=== PATIENT | female | born 1990 | race Caucasian/White ===

== ENCOUNTER 2017-03-03 01:18 | Emergency (ER) | payer MEDICAID ==
[~2017-03-03] VITALS: Ht 165.1 cm; Wt 54.4 kg
[~2017-03-03 01:18] MED LIST: CALC667T7 PO; CLON-528 TD; HYDR-1100 PO; LISI40TA4 PO; METO100T98 PO; NIFE30TE8 PO; SEN30 PO; SEVE800T PO; [UNRECOGNIZED DRUG - OTHER] PO
[2017-03-03 01:28] VITALS: BP 147/87
--- NOTE | 2017-03-03 03:41 | NUR ---
PT TAKEN TO BED 7
--- NOTE | 2017-03-03 03:45 | NUR ---
CAME IN WITH C/O SEVERE PAIN N HER LEFT FOREARM, S/P SURGERY YESTERDAY , FISTULA FOR DISLYSIS.
[2017-03-03] MEDS ORDERED: ONDANSETRON 4 MG/2 ML VIAL IVP ONE (04:00)
--- NOTE | 2017-03-03 04:02 | NUR ---
Dr. Sheehan evaluating patient at bedside.
[2017-03-03] MEDS ORDERED: HYDROmorphone PFS 2 MG/ML SYR IVP ONE (04:05)
[2017-03-03 04:09] LABS: BASOPHILS # (AUTO) 0.2 K/uL (0.00-0.22); EOSINOPHILS # (AUTO) 0.3 K/uL (0-0.4); EOSINOPHILS % (AUTO) 3.1 % (0.0-4.0); HEMATOCRIT 29.5 % (36-48); HEMOGLOBIN 9.4 g/dL (12.0-16.0); LYMPHOCYTES # (AUTO) 0.8 K/uL (2.5-16.5); LYMPHOCYTES % (AUTO) 10.1 % (20.5-51.1); MEAN CORPUSCULAR HEMOGLOBIN 31 pg (27-31); MEAN CORPUSCULAR HGB CONC 32 g/dL (33-37); MEAN CORPUSCULAR VOLUME 97 fL (80-94); MONOCYTES # (AUTO) 0.7 K/uL (0.8-1.0); MONOCYTES % (AUTO) 8.1 % (1.7-9.3); NEUTROPHILS # (AUTO) 6.3 K/uL (1.8-7.7); NEUTROPHILS % (AUTO) 75.7 % (42.2-75.2); PLATELET COUNT (AUTO) 189 K/uL (140-450); RED BLOOD CELL COUNT(AUTO) 3.05 MIL/uL (4.20-5.40); RED CELL DISTRIBUTION WIDTH 15.3 % (11.6-13.7); WHITE BLOOD COUNT (AUTO) 8.3 K/uL (4.8-10.8)
--- NOTE | 2017-03-03 04:18 | NUR ---
MEDICATED PER ERMDS ORDER, PATIENT TOLERATED WELL
[2017-03-03 04:21] LABS: PROTHROMBIN TIME 10.1 secs (10.8-13.4)
[2017-03-03] MEDS ORDERED: ONDANSETRON 4 MG/2 ML VIAL ONE (04:23)
[2017-03-03 04:38] LABS: ALBUMIN 3.3 g/dL (3.4-5.0); ANION GAP 18.8 (8-16); CARBON DIOXIDE 28.2 mmol/L (21-32); TOTAL BILIRUBIN 0.6 mg/dL (0.0-1.0)
[2017-03-03 05:29] VITALS: BP 144/77
--- NOTE | 2017-03-03 05:34 | NUR ---
Patient discharged with v/s stable. Written and verbal after care instructions given and explained. Patient alert, oriented and verbalized understanding of instructions. Ambulatory with steady gait. All questions addressed prior to discharge. ID band removed. Patient advised to follow up with PMD. Rx of NORCO 5MG-325MG 1-2 Q4HRS/PRN given. Patient educated on indication of medication including possible reaction and side effects. Opportunity to ask questions provided and answered.
== END 2017-03-03 05:34 | disposition home or self-care (01) ==
LOC: MED 01:18
DX: G89.18 Other acute postprocedural pain (principal); I12.0 Hypertensive chronic kidney disease with stage 5 chronic kidney disease or end stage renal disease; N18.6 End stage renal disease; Z99.2 Dependence on renal dialysis; Z88.0 Allergy status to penicillin; Z88.5 Allergy status to narcotic agent
CPT/HCPCS: 36415; 80053; 85025; 85610; 96374; 96375; 99285; J1170; J2405

== ENCOUNTER 2017-03-23 09:12 | Emergency (ER) | payer MEDICAID ==
[~2017-03-23] VITALS: Ht 165.1 cm; Wt 59.4 kg
[2017-03-23 09:15] VITALS: BP 172/101
--- NOTE | 2017-03-23 09:24 | NUR ---
Patient to bed 12.
--- NOTE | 2017-03-23 09:28 | NUR ---
Dr. Carlisle evaluating patient at bedside.
--- NOTE | 2017-03-23 09:33 | NUR ---
PATIENT PRESENTS PRESENT TO ER C/O WEAKNESSAND ABDOMINAL PAIN x YESTERDAY.PT MISSED HER DIALYSIS YESTERDAY AND SINCE THEN SHE BEGINS TO FEEL WEAK;HAS A FISTULA ON LT ARM;HX OF RENAL FAILURE, HTN;PT'S BP IS ELEVATED OER PT SHE TOOK HER BP MEDICINE THIS MORNING;DR IRELAND AWARE OF PT'S BP;MEDS: HYDRALIZINE, METOPROLOL, CLONIDINE.DENIES N/V/D; SKIN IS PINK/WARM/DRY; AAOX4 WITH EVEN AND STEADY GAIT; LUNGS CLEAR BL; HR EVEN AND REGULAR; PT DENIES ANY FEVER, CP, SOB, OR COUGH AT THIS TIME; PATIENT STATES PAIN OF 5/10 AT THIS TIME; PATIENT POSITIONED FOR COMFORT; HOB ELEVATED; BEDRAILS UP X2; BED DOWN. DR IRELAND AT BEDSIDE.
[2017-03-23] MEDS ORDERED: ENALAPRILAT 2.5 MG/2 ML VIAL IVP ONE (09:35)
[2017-03-23 09:59] LABS: BASOPHILS # (AUTO) 0.1 K/uL (0.00-0.22); EOSINOPHILS # (AUTO) 0.2 K/uL (0-0.4); EOSINOPHILS % (AUTO) 3.6 % (0.0-4.0); HEMOGLOBIN 8.9 g/dL (12.0-16.0); LYMPHOCYTES # (AUTO) 1.2 K/uL (2.5-16.5); LYMPHOCYTES % (AUTO) 20.9 % (20.5-51.1); MEAN CORPUSCULAR HEMOGLOBIN 32 pg (27-31); MEAN CORPUSCULAR HGB CONC 33 g/dL (33-37); MEAN CORPUSCULAR VOLUME 96 fL (80-94); MONOCYTES # (AUTO) 0.4 K/uL (0.8-1.0); MONOCYTES % (AUTO) 6.3 % (1.7-9.3); NEUTROPHILS # (AUTO) 3.9 K/uL (1.8-7.7); NEUTROPHILS % (AUTO) 68.2 % (42.2-75.2); PLATELET COUNT (AUTO) 223 K/uL (140-450); RED BLOOD CELL COUNT(AUTO) 2.81 MIL/uL (4.20-5.40); RED CELL DISTRIBUTION WIDTH 14.7 % (11.6-13.7); WHITE BLOOD COUNT (AUTO) 5.8 K/uL (4.8-10.8)
--- NOTE | 2017-03-23 10:04 | NUR ---
PT UNABLE TO GIVE URINE AT THIS TIME;
[2017-03-23 10:22] LABS: ALBUMIN 3.1 g/dL (3.4-5.0); ANION GAP 18.8 (8-16); CARBON DIOXIDE 29.2 mmol/L (21-32); TOTAL BILIRUBIN 0.4 mg/dL (0.0-1.0)
[2017-03-23 10:24] LABS: CREATININE 9.9 mg/dL (0.6-1.3)
--- NOTE | 2017-03-23 10:35 | NUR ---
DR IRELAND NOTIFIED ABOUT PT'S BP OF 188/114;TON FONTANEZ SAID IT'S OKAY BECUASE SHE HAS A RENAL FAILURE.
[2017-03-23 11:18] VITALS: BP 188/100
--- NOTE | 2017-03-23 11:18 | NUR ---
BEFORE D/C SEEN AND ADVISE BY DR IRELAND, STILL WANTS TO LEAVE AGAINST MEDICAL ADVISE WITH ELEVATED BP, NO C/O HEADACHE, DIZZINESS OR NAUSEA, ADVISE TO FOLLOWUP WITH PMD, AAO PT LEAVE ACCOMPANIED BY MOTHER
== END 2017-03-23 11:18 | disposition left against medical advice (07) ==
LOC: MED 09:12
DX: I12.0 Hypertensive chronic kidney disease with stage 5 chronic kidney disease or end stage renal disease (principal); N18.6 End stage renal disease; R79.89 Other specified abnormal findings of blood chemistry; Z99.2 Dependence on renal dialysis; Z88.0 Allergy status to penicillin; Z88.5 Allergy status to narcotic agent; Z79.899 Other long term (current) drug therapy
CPT/HCPCS: 36415; 71010; 80053; 82948; 84484; 85025; 93005; 96374; 99285; J3490; Q0092

== ENCOUNTER 2017-04-09 03:35 | Emergency (ER) | payer MEDICAID ==
[~2017-04-09] VITALS: Ht 165.1 cm; Wt 61.0 kg
[2017-04-09 03:43] VITALS: BP 147/77
--- NOTE | 2017-04-09 03:49 | NUR ---
TO LOBBY AMB, V/S STABLE, A/W FOR BED, DENZEL NOTED
--- NOTE | 2017-04-09 05:35 | NUR ---
PATIENT CALLED TO BED , NO RESPONE
--- NOTE | 2017-04-09 05:40 | NUR ---
CALLED FOR THE SECOND TIME , NO ANSWER
--- NOTE | 2017-04-09 05:45 | NUR ---
CALLED FOR THE THIRD TIME NO RESPONSE, PATIENT LEFT WITHOUT BEING SEEN BY DR. PARSONS. NO FURTHER CARE PROVIDED FOR PATIENT.
== END 2017-04-09 05:45 | disposition left against medical advice (07) ==
LOC: MED 03:35
DX: R10.9 Unspecified abdominal pain (principal); Z53.21 Procedure and treatment not carried out due to patient leaving prior to being seen by health care provider

== ENCOUNTER 2017-06-10 01:43 | Inpatient (IN) | payer MEDICAID ==
[~2017-06-10] VITALS: Ht 157.5 cm; Wt 51.7 kg
[2017-06-10] VITALS (8 sets, daily range): BP systolic 99–202; BP diastolic 55–103
--- NOTE | 2017-06-10 01:43 | NUR ---
BIBA TO ER BED 2
--- NOTE | 2017-06-10 02:05 | NUR ---
BIBA FOR C/O RIGHT SHOULDER PAIN, COUGH, SOB, FEVER HEADACHE MED HX: KIDNEY DISEASE, DIALYSIS ON // PT DENIES N/V/D; AAOX4 WITH EVEN AND STEADY GAIT; HR EVEN AND REGULAR; PATIENT STATES PAIN OF 10 AT THIS TIME; PATIENT POSITIONED FOR COMFORT; HOB ELEVATED; BEDRAILS UP X2; BED DOWN. TON FONTANEZ MADE AWARE OF PT STATUS. Addendum: 06/10/17 at 0420 by [facility]IAL[facility] ON //SUN
[2017-06-10 02:40] LABS: HEMOGLOBIN 7.9 g/dL (12.0-16.0); MEAN CORPUSCULAR HEMOGLOBIN 32 pg (27-31); MEAN CORPUSCULAR HGB CONC 33 g/dL (33-37); MEAN CORPUSCULAR VOLUME 98 fL (80-94); PLATELET COUNT (AUTO) 218 K/uL (140-450); RED BLOOD CELL COUNT(AUTO) 2.44 MIL/uL (4.20-5.40); RED CELL DISTRIBUTION WIDTH 15.7 % (11.6-13.7); WHITE BLOOD COUNT (AUTO) 9.9 K/uL (4.8-10.8)
[2017-06-10] MEDS ORDERED: fentaNYL 0.05 MG/ML VIAL IVP ONE (02:45)
[2017-06-10 02:46] LABS: CARBON DIOXIDE 28.1 mmol/L (21-32); POTASSIUM 5.1 mmol/L (3.5-5.1)
[2017-06-10 02:50] LABS: PROTHROMBIN TIME 11.1 secs (10.8-13.4)
[2017-06-10 02:51] LABS: CREATININE 4.7 mg/dL (0.6-1.3)
[2017-06-10 03:00] LABS: EOSINOPHILS % (MANUAL) 3 % (0-4); LYMPHOCYTES % (MANUAL) 14 % (20-46); MONOCYTES % (MANUAL) 9 % (5-12)
--- NOTE | 2017-06-10 03:00 | NUR ---
PAIN MEDS GIVEN TO PT. DR GUTIÉRREZ TALKED WITH PT REGARDING EXAM. PT BE ADMITTED BASED ON RESULTS.
[2017-06-10 03:08] LABS: TOTAL BILIRUBIN 0.4 mg/dL (0.0-1.0)
[2017-06-10 03:09] LABS: ALBUMIN 2.4 g/dL (3.4-5.0)
--- NOTE | 2017-06-10 03:15 | NUR ---
PT UNABLE TO PRODUCE URINE, NO UA COLLECTED.
[2017-06-10] MEDS ORDERED: ENOXAPARIN 60 MG/0.6 ML SYR SUBQ ONE (03:25)
[2017-06-10] MEDS ORDERED: HYDROmorphone PFS 2 MG/ML SYR IVP ONE (03:45)
[2017-06-10] MEDS ORDERED: NACL 0.9% 1,000 ML IV SCH (04:03)
[2017-06-10] MEDS ORDERED: NITROGLYCERIN 0.4 MG TAB SL PRN (04:05)
[2017-06-10] MEDS: ACETAMINOPHEN 325 MG TAB PO PRN ×4 (04:25→23:55)
--- NOTE | 2017-06-10 04:35 | NUR ---
Patient will be admitted to care of DR NICHOLS. Admited to TELE. Will go to room 112B. Belongings list completed. Report to DOMINIC PAUL.
--- NOTE | 2017-06-10 04:40 | NUR ---
Admitted from ER, with chief complaint of R BACK SCAPULA PAIN. PT'S MOTHER AT BEDSIDE. DR ROSS AT BEDSIDE TO SEE PT. 26 y/o, Female, Cooperative, AOX4, AMBULATORY, ABLE TO VERBALIZE NEEDS. RN NEW GRAD PLACED. PT DENIES CHEST PAIN AT THIS TIME, DENIES SOB. REPORTS RELIEF AND REDUCED R BACK PAIN AFTER DILAUDID IVP FROM ER. PT HAS L CHEST MASS AND L FOOT MASS, PT DENIES TENDERNESS. L AV SHUNT NOTED, WILL RESTRICT LIMB. IV ACCESS ASYMPTOMATIC, PATENT AND INTACT. oriented to call light, bed, phone,television, bathroom, smoking policy, visiting hours, procedures, ID bracelet on. Belongings list checked. DISCUSSED AND REVIEWED PLAN OF CARE WITH PT, PT VERBALIZED UNDERSTANDING, TOLERATED MEDS WELL. ALL NEEDS MET. SAFETY MEASURES ENSURED. CALL LIGHT WITHIN REACH.
[2017-06-10] MEDS ORDERED: HYDROcodone/APAP 10/325 MG 1 TAB TAB PO PRN (04:55)
[2017-06-10] MEDS ORDERED: cloNIDine 0.1 MG TAB PO ONE (05:00)
[2017-06-10 05:14] LABS: CHOL/HDL RATIO 2.2 (1-4.5); FREE T4 (FREE THYROXINE) 0.7 ng/dL (0.76-1.46); PHOSPHORUS 5.5 mg/dL (2.5-4.9); THYROID STIMULATING HORMONE 2.1 uIU/mL (0.34-3.74)
[2017-06-10] MEDS ORDERED: METOPROLOL 50 MG TAB PO SCH (06:00)
[2017-06-10] MEDS: hydrALAZINE 25 MG TAB PO SCH ×3 (06:06→20:06)
[2017-06-10] MEDS: HYDROmorphone PFS 2 MG/ML SYR IVP PRN ×5 (06:06→20:07)
[2017-06-10] MEDS ORDERED: cloNIDine 0.1 MG TAB PO SCH ×2 (07:00→13:00)
--- NOTE | 2017-06-10 07:05 | NUR ---
RECEIVED PATIENT REPORT AT BEDSIDE. PATIENT AWAKE, ALERT AND ORIENTED. PATIENT ON ROOM AIR. NO S/S OF DISTRESS NOTED. PATIENT REPORTS OF STABBING PAIN TO HER RIGHT BACK. WILL MEDICATE. AV FISTULA NOTED TO THE LEFT FOREARM. BRUIT AND THRILL NOTED. IV LINE NOTED TO THE RIGHT AC SALINE LOCKED. PATIENT ON TELE MONITORING. BED LOWERED WITH CALL LIGHT WITHIN REACH. WILL CONTINUE TO MONITOR
--- NOTE | 2017-06-10 07:15 | NUR ---
ENDORSED PLAN OF CARE TO AM NURSE. CONDITION STABLE.
[2017-06-10] MEDS: ONDANSETRON 4 MG/2 ML VIAL IVP PRN ×2 (08:20→16:29)
[2017-06-10] MEDS: LISINOPRIL 20 MG TAB PO SCH (08:23)
[2017-06-10] MEDS: NIFEdipine 30 MG TABER PO SCH (08:23)
[2017-06-10] MEDS: DOCUSATE SODIUM 100 MG GELCAP PO SCH ×2 (08:23→20:06)
[2017-06-10] MEDS: SEVELAMER CARBONATE 800 MG TAB PO SCH ×4 (08:24→17:54)
[2017-06-10] MEDS: ASPIRIN 81 MG TAB.CHEW PO SCH (08:24)
--- NOTE | 2017-06-10 08:29 | NUR ---
SCHEDULED HEPARIN NOT ADMINISTERED. PATIENT RECEIVED LOVENOX IN ER
[2017-06-10] MEDS ORDERED: CALCIUM ACETATE 667 MG PO SCH (09:00)
--- NOTE | 2017-06-10 10:15 | NUR ---
SPOKE WITH DR LAL. PER , PATIENT WILL HAVE HD TODAY AFTER CT ANGIO
[2017-06-10 11:17] LABS: HEMATOCRIT 26.5 % (36-48); HEMOGLOBIN 8.7 g/dL (12.0-16.0); MEAN CORPUSCULAR HEMOGLOBIN 31 pg (27-31); MEAN CORPUSCULAR HGB CONC 33 g/dL (33-37); MEAN CORPUSCULAR VOLUME 96 fL (80-94); PLATELET COUNT (AUTO) 237 K/uL (140-450); RED BLOOD CELL COUNT(AUTO) 2.76 MIL/uL (4.20-5.40); RED CELL DISTRIBUTION WIDTH 15.3 % (11.6-13.7)
--- NOTE | 2017-06-10 11:52 | NUR ---
PATIENT'S TEMP 102 TAKEN ORALLY. PRN TYLENOL ADMINISTERED, COOLING MEASURES IN PLACE.
[2017-06-10 11:53] LABS: ANION GAP 18.9 (8-16); CARBON DIOXIDE 28.6 mmol/L (21-32)
--- NOTE | 2017-06-10 12:00 | NUR ---
NOTIFIED DR PARRA ABOUT PT'S BP OF 202/96. PRN NITROSTAT ADMINISTERED. WILL CONTINUE TO MONITOR
[2017-06-10 12:07] LABS: CREATININE 5.7 mg/dL (0.6-1.3); POTASSIUM 6.5 mmol/L (3.5-5.1)
[2017-06-10] MEDS: CINACALCET 30 MG TAB PO SCH (13:11)
[2017-06-10] MEDS: cloNIDine 0.1 MG TAB PO SCH ×2 (13:12→20:06)
[2017-06-10] MEDS: CYCLOBENZAPRINE 10 MG TAB PO SCH ×2 (13:13→17:54)
[2017-06-10 14:04] LABS: BASOPHILS % (MANUAL) 0 % (0-2); EOSINOPHILS % (MANUAL) 0 % (0-4); LYMPHOCYTES % (MANUAL) 5 % (20-46); MONOCYTES % (MANUAL) 12 % (5-12)
--- NOTE | 2017-06-10 14:10 | NUR ---
PATIENT BEING SEEN BY DR LAL
[2017-06-10] MEDS: CALCIUM ACETATE 667 MG TAB PO SCH ×2 (14:14→17:54)
--- NOTE | 2017-06-10 14:30 | NUR ---
LEFT A MESSAGE TO FATIMAH BARTH 'S VOICE MAIL FOR STAT DIALYSIS
--- NOTE | 2017-06-10 14:55 | NUR ---
SPOKE TO FATIMAH BARTH AND INFORMED HER ABOUT THE HEMODIALYSIS ORDERED FOR THE PATIENT TODAY
--- NOTE | 2017-06-10 15:00 | NUR ---
ECHO IN PROGRESS. BP REASSESSED 218/93. PATIENT DROWSY BUT AROUSABLE. MADE DR PATEL AWARE
--- NOTE | 2017-06-10 16:10 | NUR ---
HEMODIALYSIS INITIATED
--- NOTE | 2017-06-10 17:55 | NUR ---
TEMP 102.4 PRN TYLENOL ADMINISTERED
--- NOTE | 2017-06-10 18:17 | NUR ---
DR PARRA PRESENT IN THE ROOM. HEMODIALYSIS IN PROGRESS
[2017-06-10] MEDS ORDERED: KETOROLAC 30 MG/ML VIAL IVP ONE (18:55)
--- NOTE | 2017-06-10 19:00 | NUR ---
TEMP RECHECKED ORALLY 103. PATIENT LETHARGIC BUT RESPONSIVE. HEMODIALYSIS STILL IN PROGRESS. MADE DR PATEL AWARE. DR IRWIN PUT ORDERS
--- NOTE | 2017-06-10 19:10 | NUR ---
PATIENT ENDORSED TO SENIOR CLINICAL PROJECT MANAGER NURSE. REPORT GIVEN AT BEDSIDE. HEMODIALYSIS IN PROGRESS
--- NOTE | 2017-06-10 19:20 | NUR ---
RECEIVED REPORT FROM AM NURSE. PT'S FAMILY AT BEDSIDE. PET COUNSELOR AT BEDSIDE ABOUT TO FINISH WITH HD. PT RESTING IN BED, AOX4, AMBULATORY, ABLE TO VERBALIZE NEEDS. LICENSED CLUB MANAGER IN PLACE. PT DENIES CHEST PAIN, DENIES SOB. PT HAS L CHEST MASS AND L FOOT MASS, PT DENIES TENDERNESS. L AV SHUNT NOTED. IV ACCESS ASYMPTOMATIC, PATENT AND INTACT. DISCUSSED AND REVIEWED PLAN OF CARE WITH PT, PT VERBALIZED UNDERSTANDING. ALL NEEDS MET. COOLING MEASURES IN PLACE. SAFETY MEASURES ENSURED. CALL LIGHT WITHIN REACH.
[2017-06-10] MEDS: ATORVASTATIN 20 MG TAB PO SCH (20:06)
[2017-06-10] MEDS: METOPROLOL 50 MG TAB PO SCH (20:06)
--- NOTE | 2017-06-10 20:10 | NUR ---
PT HAS FINISHED DIALYSIS, 3L OUT. PT C/O R BACK PAIN, SEE PAIN ASSESSMENT, ADMINISTERED DILAUDID 1MG IVP PRN WITH EDUCATION. ADMINISTERED REMAINING DUE MEDS WITH EDUCATION. PT VERBALIZED UNDERSTANDING, TOLERATED MED WELL. TEMP 102.9 AT THIS TIME DESPITE TYLENOL PO PRN AND TORADOL IVP ONE TIME GIVEN BY AM NURSE. PT IS NOT DUE FOR TYLENOL PO PRN IN 2 HOURS, ICE PACKS AND COOLING MEASURES ENSURED, WILL MONITOR AT THIS TIME.
--- NOTE | 2017-06-10 21:45 | NUR ---
SPOKE WITH DR ROSS, MADE AWARE OF TEMP 100.6 AT THIS TIME FROM PREVIOUS 102.9 AFTER ICE PACKS AND PREVIOUS TYLENOL PO PRN AND TORADOL IVP ONETIME BY AM NURSE. DISCUSSED THAT PT IS SLEEPING AT THIS TIME, BP 99/55, HR 96 AFTER SCHEDULED MEDS. DISCUSSED IF TYLENOL PO PRN CAN BE CHANGED TO Q4H INSTEAD OF Q6H TO GIVE AT THIS TIME. NO NEW ORDERS AT THIS TIME, MD STATED TO MONITOR AT THIS TIME.
[2017-06-11] VITALS (7 sets, daily range): BP systolic 99–152; BP diastolic 49–82
--- NOTE | 2017-06-11 | NUR ---
PT SLEEPING COMFORTABLY, AROUSABLE TO NAME. O2 NC SEEN AT BEDSIDE, SPO2 89-93% ON ROOM AIR. PT REMINDED TO KEEP O2 2L NC ON, PT STATED SHE ACCIDENTALLY TOOK IT OFF WHEN TURNING IN BED WHILE SLEEPING. PT PLACED BACK ON O2 NC, SPO2 97%, RR 18 EVEN AND UNLABORED. TEMP 100 AT THIS TIME, ADMINISTERED TYLENOL PO PRN PER DR RSOS, COOLING MEASURES MAINTAINED. ALL NEEDS MET. SAFETY MEASURES ENSURED. CALL LIGHT WITHIN REACH.
[2017-06-11] MEDS: HYDROmorphone PFS 2 MG/ML SYR IVP PRN ×6 (04:15→22:41)
[2017-06-11] MEDS: cloNIDine 0.1 MG TAB PO SCH ×3 (04:16→21:00)
--- NOTE | 2017-06-11 04:20 | NUR ---
PT SLEEPING COMFORTABLY, AROUSABLE TO NAME. SPO2 89-93% ON ROOM AIR, PT ACCIDENTALLY REMOVED O2 NC WHILE SLEEPING. PT PLACED BACK ON O2 NC, SPO2 97%, RR 18 EVEN AND UNLABORED, HR 76. ORAL TEMP 98.9 AT THIS TIME. PT C/O R BACK PAIN, SEE PAIN ASSESSMENT, ADMINISTERED DILAUDID 1MG IVP PRN. ALL NEEDS MET. SAFETY MEASURES ENSURED. CALL LIGHT WITHIN REACH. Addendum: 06/11/17 at 0437 by Giles Morrell RN BP 108/61, ADMINISTERED DUE [employer] CATAPRES WITH EDUCATION. PT VERBALIZED UNDERSTANDING.
[2017-06-11] MEDS: hydrALAZINE 25 MG TAB PO SCH ×3 (05:43→21:00)
--- NOTE | 2017-06-11 05:50 | NUR ---
BP 110/56 AT THIS TIME, HELD DUE MED APRESOLINE PO DUE TO MED NOT WITHIN PARAMETERS.
--- NOTE | 2017-06-11 06:35 | NUR ---
RECEIVED CALL FROM APARTMENT MAINTENANCE MANAGER, WAS ASKED WHEN PT'S DIALYSIS IS GOING TO BE. CALLED DR VALERA, DISCUSSED THAT PT IS HAVING CT HEAD/NECK/ABD&PELVIS WITH CONTRAST TODAY BUT THERE IS NO ORDER FOR DIALYSIS YET. STATED THAT THE PLAN IS PT MAY HAVE DIALYSIS IN THE AFTERNOON AND APARTMENT MAINTENANCE MANAGER SHOULD DO CT TESTS NOW AND THERE IS NO NEED TO WAIT. CALLED APARTMENT MAINTENANCE MANAGER, MADE TECH AWARE TO DO CT TESTS NOW, CONSENT IS SIGNED AND PT HAS R AC 18G. APARTMENT MAINTENANCE MANAGER STATED THAT SHE IS BUSY AT ER AT THIS TIME, IT WILL HAVE TO BE DONE AFTER 0700.
[2017-06-11 06:48] LABS: HEMATOCRIT 23.9 % (36-48); HEMOGLOBIN 7.8 g/dL (12.0-16.0); MEAN CORPUSCULAR HEMOGLOBIN 32 pg (27-31); MEAN CORPUSCULAR HGB CONC 33 g/dL (33-37); MEAN CORPUSCULAR VOLUME 97 fL (80-94); PLATELET COUNT (AUTO) 253 K/uL (140-450); RED BLOOD CELL COUNT(AUTO) 2.46 MIL/uL (4.20-5.40); RED CELL DISTRIBUTION WIDTH 15.3 % (11.6-13.7); WHITE BLOOD COUNT (AUTO) 14.4 K/uL (4.8-10.8)
[2017-06-11 07:09] LABS: ANION GAP 17.1 (8-16); POTASSIUM 5.1 mmol/L (3.5-5.1)
[2017-06-11 07:14] LABS: PHOSPHORUS 6.4 mg/dL (2.5-4.9)
--- NOTE | 2017-06-11 07:15 | NUR ---
ENDORSED PLAN OF CARE TO AM NURSE. CONDITION STABLE.
--- NOTE | 2017-06-11 07:25 | NUR ---
RECEIVED PATIENT REPORT AT BEDSIDE FROM NIGHT NURSE. PATIENT IS DROWSY, ALERT ORIENTED X4 AND SHOWS NO S/S OF ACUTE DISTRESS, DENIES DYSPNEA, PATIENT O2 SAT RANGES FROM 85-88% WHILE SLEEPING; HOWEVER, ONCE SHE IS AWAKE O2 SAT IS AT 92%, PATIENT ENCOURAGED TO HAVE O2 WHILE SLEEPING OR SOB. PATIENT STATES 10/10 RIGHT SHOULDER PAIN WILL MEDICATE WITH AVAILABLE PAIN MEDICATION. ON TELE MONITOR. IV NOTED ON THE RIGHT AC SL, AND LEFT FOREARM AV SHUNT. SKIN INTACT. DISCUSSED POC WITH PATIENT AND SHE VERBALIZED UNDERSTANDING. BED IN LOW POSITION WITH CALL LIGHT WITHIN REACH.
[2017-06-11 07:57] LABS: EOSINOPHILS % (MANUAL) 1 % (0-4); LYMPHOCYTES % (MANUAL) 10 % (20-46); MONOCYTES % (MANUAL) 9 % (5-12)
--- NOTE | 2017-06-11 08:00 | NUR ---
DR LAWSON AWARE OF PATIENT O2 LEVELS DESATURATE WHILE PATIENT IS ASLEEP, O2 SAT DESATURATE FROM 80-88% WHILE PATIENT IS TALKING PATIENT O2 SATURATION RANGES FROM 92%-98%. NO NEW ORDERS AT THIS TIME.
[2017-06-11] MEDS: DOCUSATE SODIUM 100 MG GELCAP PO SCH ×2 (08:12→21:07)
[2017-06-11] MEDS: SEVELAMER CARBONATE 800 MG TAB PO SCH ×3 (08:12→17:00)
[2017-06-11] MEDS: CYCLOBENZAPRINE 10 MG TAB PO SCH ×3 (08:12→17:01)
[2017-06-11] MEDS: ASPIRIN 81 MG TAB.CHEW PO SCH (08:12)
[2017-06-11] MEDS: EPOETIN ALFA 10,000 UNITS/ML VIAL SUBQ SCH (08:13)
[2017-06-11] MEDS: NIFEdipine 30 MG TABER PO SCH (08:14)
[2017-06-11] MEDS: LISINOPRIL 20 MG TAB PO SCH (08:14)
[2017-06-11] MEDS: METOPROLOL 50 MG TAB PO SCH ×2 (08:14→21:00)
[2017-06-11] MEDS: CALCIUM ACETATE 667 MG TAB PO SCH ×3 (08:27→17:01)
[2017-06-11] MEDS: CINACALCET 30 MG TAB PO SCH (08:27)
[2017-06-11] MEDS: ACETAMINOPHEN 325 MG TAB PO PRN ×3 (08:28→15:46)
--- NOTE | 2017-06-11 08:30 | NUR ---
ADMINISTERED SCHEDULED MEDICATIONS, PATIENT WAS ALSO GIVEN DILAUDID 1 MG IVP FOR 10/10 RIGHT SHOULDER PAIN, ALSO PATIENT HAD ELEVATED TEMPERATURE OF 102.6 FAHRENHEIT AND GIVEN TYLENOL 650 MG PO AND GIVEN COOLING MEASURES, PATIENT SWALLOWED MEDICATIONS WITHOUT DIFFICULTY ALL NEEDS MET AT THIS TIME.
--- NOTE | 2017-06-11 09:00 | NUR ---
MEDICATIONS FOR BP NOT GIVEN DUE TO PATIENT RECEIVING HD LATER TODAY.
--- NOTE | 2017-06-11 10:16 | NUR ---
PATIENT HAS BEEN SCREENED AND CATEGORIZED HIGH NUTRITION RISK. PATIENT WILL BE SEEN WITHIN 1-2 DAYS OF ADMISSION. 06/10/17-06/11/[address]
[2017-06-11] MEDS ORDERED: CALCIUM ACETATE 667 MG TAB PO SCH (12:00)
--- NOTE | 2017-06-11 12:27 | NUR ---
ADMINISTERED SCHEDULED MEDICATIONS, IV ABX IS INFUSING WELL AT THIS TIME. PATIENT THEN C/O 10/10 RIGHT SHOULDER PAIN. ADMINISTERED DILAUDID 1 MG IVP. WILL REASSESS PAIN IN ONE HOUR.
--- NOTE | 2017-06-11 13:00 | NUR ---
NUCLEAR MEDINE (NM) STAFF CAME TO UNIT TO INJECT MEDICATION FOR PROCEDURE. SHE STATED SHE WILL BE BACK IN THREE HOURS TO DO EXAM. HD NURSE IS AWARE AND WILL HOLD DIALYSIS UNTIL AFTER NM PROCEDURE IS DONE.
[2017-06-11] MEDS: FERRIC GLUCONATE 125 MG in NACL 0.9% 100 ML IV SCH (13:27)
--- NOTE | 2017-06-11 13:32 | NUR ---
ADMINISTERED SCHEDULED MEDICATIONS, IV MED INFUSING WELL. PATIENT RESTING COMFORTABLY IN BED WITH O2 @ 2L VIA NC. PATIENT DENIES DYSPNEA AND SOB. ALL NEEDS MET AT THIS TIME.
[2017-06-11] MEDS ORDERED: ALBUTEROL SULFATE/IPRATROPIU 3 ML SOL IH PRN (15:05)
--- NOTE | 2017-06-11 15:30 | NUR ---
DR RIVAS AT BEDSIDE, RT AT BEDSIDE, O2 SAT ON ROOM AIR RANGES FROM 84%-88%, O2 APPLIED AT 2L VIA NC, PATIENT HAS SHALLOW BREATHING, STATES DIFFICULTLY BREATHING BC OF PAIN, WILL ADMINISTER PRN PAIN MEDICATION. DR RIVAS AWARE OF O2 DESATURATION. UPDATED PATIENT'S FAMILY OF POC.
--- NOTE | 2017-06-11 15:50 | NUR ---
PATIENT WAS GIVEN DILAUDID 1 MG IVP FOR 10/10 RIGHT SHOULDER PAIN, PATIENT HAS A TEMPORAL TEMPERATURE OF 102.9 FAHRENHEIT, COOLING MEASURES APPLIED, ACETAMINOPHEN [address] LAWSON AWARE, ALL NEEDS MET AT THIS TIME.
--- NOTE | 2017-06-11 16:15 | NUR ---
06/11/2017 RD INITIAL ASSESSMENT COMPLETED PLEASE REFER TO NUTRITION ASSESSMENT UNDER CARE ACTIVITY FOR ESTIMATED NUTRITIONAL NEEDS. CONTINUE RENAL DIET TOLERATED. NURSING AND DIETARY STAFF TO ENCOURAGE INCREASED PO INTAKE. RD TO FOLLOW-UP IN 2-3 DAYS PATIENT IS HIGH RISK. MURRAY GRANT, CAITY
--- NOTE | 2017-06-11 17:00 | NUR ---
PATIENT AUXILIARY TEMPERATURE IS 99.2 FAHRENHEIT. COOLING MEASURES STILL APPLIED, PATIENT NEEDS MET AT THIS TIME.
[2017-06-11] MEDS: FERROUS SULFATE 325 MG TABEC PO SCH (17:01)
[2017-06-11] MEDS: ALBUTEROL SULFATE/IPRATROPIU 3 ML SOL IH SCH (19:00)
--- NOTE | 2017-06-11 19:35 | NUR ---
PATIENT LEFT TO NM SCAN PROCEDURE, PATIENT IS CURRENTLY STILL IN PROCEDURE, REPORT GIVEN TO NIGHT NURSE.
--- NOTE | 2017-06-11 19:40 | NUR ---
REPORT WAS GIVEN BY DAY SHIFT RN. PT NOT IN UNIT AT THE MOMENT. PT IN NUCLEAR MEDICINE. DIALYSIS NURSE AND PT'S FAMILY WAITING FOR PT IN ROOM.
--- NOTE | 2017-06-11 19:54 | NUR ---
patient away for a procedure. hhntx not given. will follow up when patient gets back to see if she needs a prn hhntx
--- NOTE | 2017-06-11 20:50 | NUR ---
PT ARRIVED TO UNIT IN STABLE CONDITION. PT IS A/OX4, LETHARGIC, ON 4L OF O2 VIA NASAL CANNULA. 20G IV TO RIGHT AC. PT REPORTS GENERALIZED WEAKNESS. PT SKIN INTACT. UPDATED BOARD. DISCUSSED PLAN OF CARE WITH PT, PT VERBALIZED UNDERSTANDING. VITAL SIGNS WITHIN NORMAL LIMITS. TEMPERATURE 98.8. PT ABOUT TO START HEMODIALYSIS. PT IN STABLE CONDITION, NO SIGNS OF DISTRESS NOTED. BED IN LOWEST POSITION, CALL LIGHT WITHIN REACH. WILL CONTINUE TO MONITOR.
[2017-06-11] MEDS: ATORVASTATIN 20 MG TAB PO SCH (21:08)
--- NOTE | 2017-06-11 21:10 | NUR ---
ADMINISTERED SCHEDULED MEDICATIONS, EXCEPT FOR BP MEDS, PT TOLERATED WELL. HELD BP MEDS BECAUSE PT ON HEMODIALYSIS. NOTICED PT SHAKING AND SAYING SHE WAS COLD. DIALYSIS NURSE COVERING PT WITH BLANKETS AND TURNING HEAT UP IN ROOM. EXPLAINED TO DIALYSIS NURSE THAT PT HAD FEVER ALL DAY AND COOLING MEASURES WERE IN PLACE, HE SAID HE WAS GOING TO BE MONITORING PT TEMPERATURE THROUGHOUT AND IT WAS 98.2 AT THE MOMENT AND PT WAS SHIVERING.
--- NOTE | 2017-06-11 22:02 | NUR ---
FOUND PATIENT ON 4LNC. SATS 100%. LOWERED FIO2 TO 2.5 LNC. WILL MONITOR SATS. RN AWARE OF THE CHANGE
--- NOTE | 2017-06-11 22:41 | NUR ---
ADMINISTERED PAIN MEDICATION PER PT REQUEST FOR 8/10 BACK PAIN, PT TOLERATED WELL.
--- NOTE | 2017-06-11 23:00 | NUR ---
DIALYSIS NURSE NOTIFIED ME THAT BECAUSE THE DIALYSIS MACHINE IS CLEANING/CIRCULATING BLOOD, PT VITAL SIGNS ARE BEING AFFECTED SINCE INFECTION PT HAS IS CIRCULATING THROUGHOUT BODY. HE SAID HE WAS GOING TO STOP HEMODIALYSIS AND SPEAK TO DR LAL, AND THAT PT HAD BEEN ON DIALYSIS FOR THE 2HRS IT NORMALLY TAKES. PT SBP IS NOW OVER 200, HEART RATE OVER 130 AND TEMPERATURE OVER 102. INITIATED COOLING MEASURES. DIALYSIS NURSE SAID HE WOULD STAY WITH PT UNTIL PATIENT STABILIZED.
--- NOTE | 2017-06-11 23:40 | NUR ---
DIALYSIS NURSE LEFT. 1 LITER TOTAL OUTPUT WAS TAKEN. PT NOW HAS FEVER 102.2, WILL ADMINISTER TYLENOL PER ORDER.
[2017-06-12] VITALS (8 sets, daily range): BP systolic 93–135; BP diastolic 51–69
--- NOTE | 2017-06-12 01:00 | NUR ---
PT TEMPERATURE NOW 98.3.
--- NOTE | 2017-06-12 01:42 | NUR ---
SPOKE TO DR GUZMAN ABOUT PT HAVING EPISODES OF APNEA WHILE SLEEPING. DR SAID HE WOULD CHECK HER.
[2017-06-12] MEDS: HYDROmorphone PFS 2 MG/ML SYR IVP PRN ×2 (04:34→08:30)
[2017-06-12] MEDS: cloNIDine 0.1 MG TAB PO SCH ×2 (04:35→12:00)
[2017-06-12] MEDS: hydrALAZINE 25 MG TAB PO SCH ×2 (04:35→12:00)
--- NOTE | 2017-06-12 04:36 | NUR ---
ADMINISTERED DILAUDID FOR 10/10 BACK PAIN, PT TOLERATED WELL. SCHEDULED BP MEDICATIONS WERE HELD BECAUSE OF PARAMETERS, HOLD IF DBP <60, PT DBP IS 58. PT IN STABLE CONDITION, NO SIGNS OF DISTRESS NOTED. BED IN LOWEST POSITION, CALL LIGHT WITHIN REACH. WILL CONTINUE TO MONITOR.
[2017-06-12 06:23] LABS: FOLIC ACID 13.9 ng/mL (>3.0)
[2017-06-12] MEDS: ALBUTEROL SULFATE/IPRATROPIU 3 ML SOL IH SCH ×3 (06:34→19:00)
--- NOTE | 2017-06-12 07:32 | NUR ---
ENDORSED PT IN STABLE CONDITION TO DAY SHIFT NURSE FOR CONTINUITY OF CARE.
--- NOTE | 2017-06-12 07:45 | NUR ---
RECEIVED PATIENT REPORT AT BEDSIDE FROM NIGHT NURSE. PATIENT IS ALERT ORIENTED X 3 HOWEVER HAS EPISODES OF CONFUSION, AND SHOWS NO S/S OF ACUTE DISTRESS, PATIENT O2 SAT RANGES FROM 85-88% WHILE SLEEPING; HOWEVER, ONCE SHE IS AWAKE O2 SAT RANGES FROM 89-91%, PATIENT ENCOURAGED TO HAVE O2 ON APPLIED O2 AT 4L VIA NC. O2 SAT IS NOW 96%. PATIENT FEELS WARM TO TOUCH, ASSESSED AUXILIARY TEMPERATURE, IT IS 102.6 FAHRENHEIT. APPLIED COOLING MEASURES. WILL ADMINISTERED TYLENOL 650 MG PO FOR ELEVATED TEMPERATURE. PATIENT STATES 10/10 RIGHT SHOULDER PAIN WILL MEDICATE WITH AVAILABLE PAIN MEDICATION. ON TELE MONITOR. IV NOTED ON THE RIGHT AC SL, AND LEFT FOREARM AV SHUNT. SKIN INTACT. DISCUSSED POC WITH PATIENT AND SHE VERBALIZED UNDERSTANDING. DR LAWSON AND DR RIVAS AWARE OF ELEVATED AUXILIARY TEMPERATURE OF 102.6 FAHRENHEIT. BED IN LOW POSITION WITH CALL LIGHT WITHIN REACH.
[2017-06-12] MEDS: CYCLOBENZAPRINE 10 MG TAB PO SCH ×3 (08:32→16:28)
[2017-06-12] MEDS: METOPROLOL 50 MG TAB PO SCH ×2 (08:33→21:00)
[2017-06-12] MEDS: ACETAMINOPHEN 325 MG TAB PO PRN ×2 (08:33)
[2017-06-12] MEDS: CALCIUM ACETATE 667 MG TAB PO SCH ×3 (08:33→16:28)
[2017-06-12] MEDS: SEVELAMER CARBONATE 800 MG TAB PO SCH ×3 (08:34→16:29)
[2017-06-12] MEDS: LACTOBACILLUS RHAMNOSUS GG 1 EACH CAP PO SCH (08:34)
[2017-06-12] MEDS: NIFEdipine 30 MG TABER PO SCH (08:34)
[2017-06-12] MEDS: ASPIRIN 81 MG TAB.CHEW PO SCH (08:34)
[2017-06-12] MEDS: FERROUS SULFATE 325 MG TABEC PO SCH ×2 (08:34→16:28)
[2017-06-12] MEDS: CINACALCET 30 MG TAB PO SCH (08:35)
[2017-06-12] MEDS: DOCUSATE SODIUM 100 MG GELCAP PO SCH ×2 (08:35→20:15)
[2017-06-12] MEDS: LISINOPRIL 20 MG TAB PO SCH (08:35)
[2017-06-12 08:44] LABS: HEMATOCRIT 23.1 % (36-48); HEMOGLOBIN 7.8 g/dL (12.0-16.0); MEAN CORPUSCULAR HEMOGLOBIN 32 pg (27-31); MEAN CORPUSCULAR HGB CONC 34 g/dL (33-37); MEAN CORPUSCULAR VOLUME 96 fL (80-94); PLATELET COUNT (AUTO) 235 K/uL (140-450); RED BLOOD CELL COUNT(AUTO) 2.42 MIL/uL (4.20-5.40); RED CELL DISTRIBUTION WIDTH 15.4 % (11.6-13.7); WHITE BLOOD COUNT (AUTO) 16.8 K/uL (4.8-10.8)
[2017-06-12] MEDS ORDERED: ASCORBIC ACID 500 MG TAB PO SCH (09:00)
[2017-06-12 09:21] LABS: ANION GAP 13.9 (8-16); CARBON DIOXIDE 31.2 mmol/L (21-32); POTASSIUM 5.1 mmol/L (3.5-5.1)
[2017-06-12 09:22] LABS: LYMPHOCYTES % (MANUAL) 14 % (20-46); MONOCYTES % (MANUAL) 7 % (5-12)
[2017-06-12 09:23] LABS: PHOSPHORUS 6.1 mg/dL (2.5-4.9)
[2017-06-12 09:29] LABS: CREATININE 4.8 mg/dL (0.6-1.3)
[2017-06-12] MEDS ORDERED: PIPER/TAZO 2.25GM/D5W PREMIX 50 ML IV SCH ×2 (10:00→21:00)
[2017-06-12] MEDS ORDERED: VANCOMYCIN PER PHARMACY MC PRN (10:10)
[2017-06-12] MEDS ORDERED: HEPARIN PER PHARMACY MC PRN (10:10)
--- NOTE | 2017-06-12 10:10 | NUR ---
PHARMACY WAS NOTIFIED OF SCHEDULED ZOSYN MEDICATION AND OF PATIENT'S ALLERGY TO PCN. HU STATED SHE SPOKE WITH DR. LAWSON AND OKAYED TO GIVE MEDICATION. DR LAWSON IS AWARE OF PATIENT'S PCN ALLERGY OKAYED TO GIVE.
[2017-06-12] MEDS ORDERED: VANCOMYCIN 500 MG in DEXTROSE 5% 100 ML IV SCH (11:30)
[2017-06-12 12:05] LABS: PROTHROMBIN TIME 12.9 secs (10.8-13.4)
--- NOTE | 2017-06-12 12:10 | NUR ---
NEW IV SUCCESSFULLY ATTEMPTED ON THE RIGHT FORE ARM 22G
--- NOTE | 2017-06-12 12:25 | NUR ---
ADMINISTERED SCHEDULED MEDICATIONS, IV ABX IS INFUSING WELL, PATIENT STATED SHE HAS BEEN FEELING ITCHY AND STATES, "I DON'T FEEL WELL." DR LAWSON NOTIFIED OF POSSIBLE ALLERGY REACTION. IS TO PLACE ORDERS.
[2017-06-12] MEDS ORDERED: NACL 0.9% 500 ML IV SCH ×2 (12:35→12:55)
--- NOTE | 2017-06-12 12:39 | NUR ---
PATIENT IS LETHARGIC, UNABLE TO RESPOND TO QUESTIONS AT TIMES. PATIENT NODS FOR YES OR NO, PATIENT DOES SPEAK TO SOME QUESTIONS HOWEVER THEY ARE SHORT SIMPLE SENTENCES. PATIENT BP IS 93/[address] LAWSON IS AWARE AND WILL PLACE IN ORDERS, PATIENT ON TRENSBELENSGERG. IV ABX INFUSING WELL AT THIS TIME. PO MEDICATIONS WERE NO GIVE BC PATIENT IS TOO LETHARGIC TO TAKE AT THIS TIME.
--- NOTE | 2017-06-12 12:51 | NUR ---
PLACE PATIENT ON TRENDELENBURG HOWEVER PATIENT'S MOM PLACED HER BACK ON BUCIO'S PATIENT'S MOM EDUCATED ON LOW BP AND THE NEED TO HAVE PATIENT ON TRENDELENBURG HOWEVER PATIENT'S MOM INSISTENTLY REFUSES.
[2017-06-12] MEDS: ONDANSETRON 4 MG/2 ML VIAL IVP PRN (12:54)
[2017-06-12] MEDS ORDERED: diphenhydrAMINE 50 MG/ML VIAL IVP SCH (13:00)
[2017-06-12] MEDS ORDERED: FAMOTIDINE 20 MG/2 ML VIAL IV SCH (13:00)
[2017-06-12] MEDS ORDERED: LORATADINE 10 MG TAB PO SCH (13:00)
--- NOTE | 2017-06-12 13:08 | NUR ---
pt was asleep. hhn not given
[2017-06-12] MEDS: methylPREDNISolone SS 125 MG/2 ML VIAL IVP SCH ×2 (13:31→21:19)
--- NOTE | 2017-06-12 13:31 | NUR ---
PATIENT WAS GIVEN SCHEDULED MEDICATIONS, PATIENT CONTINUES TO FEEL TIRED, AND IS LETHARGIC PATIENT. PATIENT IS RESTING IN BED. MONITORING PATIENT'S BP. V/S CHARTED.
[2017-06-12] MEDS: FERRIC GLUCONATE 125 MG in NACL 0.9% 100 ML IV SCH (13:34)
[2017-06-12] MEDS ORDERED: LEVOFLOXACIN 750 MG/D5W PREMIX 150 ML IV SCH ×2 (14:00→18:00)
--- NOTE | 2017-06-12 15:30 | NUR ---
PATIENT BACK ON UNIT, PATIENT SHOWS NO S/S OF ACUTE DISTRESS, IS MORE ALERT AND AWAKE. ALL NEEDS MET AT THIS TIME.
[2017-06-12] MEDS ORDERED: AZTREONAM 1,000 MG in DEXTROSE 5% 100 ML IV SCH (16:00)
[2017-06-12] MEDS: hePARIN / DEXT 5% PREMIX 250 ML IV SCH (16:37)
--- NOTE | 2017-06-12 16:45 | NUR ---
PATIENT'S IV ABX GIVEN ON THE RIGHT AC AND IS INFUSING WELL. BEGAN HEPARIN DRIP AT RIGHT FOREARM 22 G IV, BOLUS OF HEPARIN 3600 UNITS GIVEN IV, DRIP STARTED AT 9.3 ML/HR; 930 UNITS/HR, ORDERED BY PHARMACY. HEPARIN DRIP WAS COSIGNED BY BILLY ALFARO. OTHER PO MEDS GIVEN, PATIENT SWALLOWED WITHOUT DIFFICULTY, PATIENT IS AWAKE ALERT AND SHOWS NO S/S OF ACUTE DISTRESS. ALL NEEDS MET AT THIS TIME.
--- NOTE | 2017-06-12 17:00 | NUR ---
DR NOTIFIED OF PATIENT'S BP IS IMPROVING AFTER NORMAL SALINE 500 ML BOLUS, NO NEW ORDERS. V/S CHARTED AND IS WNL.
--- NOTE | 2017-06-12 18:16 | NUR ---
PATIENT IV ABX IS INFUSING WELL ON THE RIGHT AC. ALL NEEDS MET AT THIS TIME.
--- NOTE | 2017-06-12 18:41 | NUR ---
DR GUZMAN CAME TO SEE PATIENT, PATIENT C/O PAIN; HOWEVER DR GUZMAN WAS NOTIFIED OF LOW BP AND PATIENT WAS NOT ABLE TO RECEIVED DILAUDID 1 MG IVP FOR SEVER PAIN. DR GUZMAN ORDERED TO GIVE NORCO 10/325 MG PO FOR PATIENT'S PAIN.
[2017-06-12] MEDS ORDERED: cloNIDine 0.1 MG TAB PO PRN (18:56)
--- NOTE | 2017-06-12 19:30 | NUR ---
PATIENT REPORT GIVEN AT BEDSIDE, PATIENT ENDORSED IN STABLE CONDITION.
--- NOTE | 2017-06-12 19:31 | NUR ---
RECEIVED REPORT FROM DAY SHIFT NURSE AT PT BEDSIDE. PT IS A/OX4, LETHARGIC, ON 2L OF O2 VIA NASAL CANNULA. 20G IV TO RIGHT AC, AND 22G IV TO RIGHT FOREARM INFUSING HEPARIN DRIP. PT REPORTS GENERALIZED WEAKNESS. PT SKIN INTACT. UPDATED BOARD. DISCUSSED PLAN OF CARE WITH PT, PT VERBALIZED UNDERSTANDING. VITAL SIGNS WITHIN NORMAL LIMITS. PT IN STABLE CONDITION, NO SIGNS OF DISTRESS NOTED. BED IN LOWEST POSITION, CALL LIGHT WITHIN REACH. WILL CONTINUE TO MONITOR.
--- NOTE | 2017-06-12 20:08 | NUR ---
PT UNABLE TO DO IS, DUE TO PAIN
[2017-06-12] MEDS: ATORVASTATIN 20 MG TAB PO SCH (20:15)
--- NOTE | 2017-06-12 20:20 | NUR ---
INTERNET AND E BUSINESS PROJECT MANAGER STUDENT AND INSTRUCTOR ADMINISTERED TWO OF THE SCHEDULED MEDS FOR RIGHT NOW, PT TOLERATED WELL. WILL HOLD LOPRESSOR BECAUSE BLOOD PRESSURE IS DECREASED.
--- NOTE | 2017-06-12 21:20 | NUR ---
ADMINISTERED OTHER SCHEDULED IV MEDICATION, PT TOLERATED WELL. PT IN STABLE CONDITION, NO SIGNS OF DISTRESS NOTED. BED IN LOWEST POSITION, CALL LIGHT WITHIN REACH. WILL CONTINUE TO MONITOR.
--- NOTE | 2017-06-12 22:15 | NUR ---
SPOKE TO DR GUZMAN ABOUT ORDERING APTT AT 2238 BECAUSE HEPARIN DRIP WAS STARTED AT 1638. SAID TO ADJUST PER PROTOCOL WITH APTT DRAWN AT MIDNIGHT.
[2017-06-13] VITALS: BP 98/59
[2017-06-13] MEDS ORDERED: AZTREONAM 500 MG in DEXTROSE 5% 50 ML IV SCH ×2
--- NOTE | 2017-06-13 | NUR ---
VITAL SIGNS WITHIN NORMAL LIMITS. PT IN STABLE CONDITION, NO SIGNS OF DISTRESS NOTED. BED IN LOWEST POSITION, CALL LIGHT WITHIN REACH. WILL CONTINUE TO MONITOR.
--- NOTE | 2017-06-13 00:50 | NUR ---
LAB CALLED WITH CRITICAL LAB VALUE FOR PTT 99.8, TURNED OFF HEPARIN DRIP PER PROTOCOL. WILL RESTART AT LOWER RATE IN ONE HOUR INDICATED BY PROTOCOL.
--- NOTE | 2017-06-13 01:00 | NUR ---
DR GUZMAN MADE AWARE THAT PTT IS 99.8, DR GAVE ORDERS TO FOLLOW PROTOCOL.
[2017-06-13] MEDS: hePARIN / DEXT 5% PREMIX 250 ML IV SCH (02:46)
[2017-06-13 04:00] VITALS: BP 121/83
--- NOTE | 2017-06-13 04:00 | NUR ---
VITAL SIGNS WITHIN NORMAL LIMITS. PT IN STABLE CONDITION, NO SIGNS OF DISTRESS NOTED. BED IN LOWEST POSITION, CALL LIGHT WITHIN REACH. WILL CONTINUE TO MONITOR.
[2017-06-13] MEDS ORDERED: KETOROLAC 15 MG/ML VIAL IVP PRN (04:55)
--- NOTE | 2017-06-13 05:10 | NUR ---
PT C/O 01/16 PAIN TO BACK BUT DOES NOT WANT NORCO BECAUSE SHE STATES NORCO DOES NOT HELP. ASKED DR GUZMAN FOR ANOTHER OPTION, DR SAID HE WOULD ORDER TORADOL.
[2017-06-13] MEDS ORDERED: KETOROLAC 15 MG/ML VIAL IVP ONE (05:15)
--- NOTE | 2017-06-13 05:17 | NUR ---
ADMINISTERED SCHEDULED MEDICATIONS AND TORADOL FOR PAIN, PT TOLERATED WELL.
[2017-06-13] MEDS: methylPREDNISolone SS 125 MG/2 ML VIAL IVP SCH (05:27)
[2017-06-13] MEDS: ALENDRONATE 10 MG TAB PO SCH (05:51)
--- NOTE | 2017-06-13 07:37 | NUR ---
ENDORSED PT IN STABLE CONDITION TO DAY SHIFT NURSE FOR CONTINUITY OF CARE.
--- NOTE | 2017-06-13 07:38 | NUR ---
RECEIVED REPORT FROM POLYTECHNIC REGISTRAR NURSE AT BEDSIDE FOR CONTINUITY OF CARE. PT IS A/OX4, ON ROOM AIR, BREATHING EVEN AND UNLABORED. 20G IV TO RIGHT AC, AND 22G IV TO RIGHT FOREARM INFUSING HEPARIN DRIP. PT REPORTS GENERALIZED WEAKNESS. PT SKIN INTACT. UPDATED BOARD. DISCUSSED PLAN OF CARE WITH PT, PT VERBALIZED UNDERSTANDING. VITAL SIGNS WITHIN NORMAL LIMITS. PT IN STABLE CONDITION, NO SIGNS OF DISTRESS NOTED. BED IN LOWEST POSITION, CALL LIGHT WITHIN REACH. WILL CONTINUE TO MONITOR PATIENT.
[2017-06-13] MEDS: ALBUTEROL SULFATE/IPRATROPIU 3 ML SOL IH SCH ×3 (07:40→19:08)
--- NOTE | 2017-06-13 07:45 | NUR ---
TOLERATED INCENTIVE SPIROMETRY THERAPY WELL WITHOUT INCIDENT ENCOURAGED PATIENT WITH ACKNOWLEDGEMENT TO USE EVERY 1-2 HOURS WHILE AWAKE
[2017-06-13 08:00] VITALS: BP 103/58
[2017-06-13] MEDS ORDERED: IBUPROFEN 600 MG TAB PO PRN (08:00)
[2017-06-13] MEDS: SEVELAMER CARBONATE 800 MG TAB PO SCH ×3 (08:36→17:00)
[2017-06-13] MEDS: LACTOBACILLUS RHAMNOSUS GG 1 EACH CAP PO SCH (08:36)
[2017-06-13] MEDS: CYCLOBENZAPRINE 10 MG TAB PO SCH ×3 (08:36→17:01)
[2017-06-13] MEDS: DOCUSATE SODIUM 100 MG GELCAP PO SCH ×2 (08:36→21:38)
--- NOTE | 2017-06-13 08:36 | NUR ---
DIALYSIS NURSE HERE TO START PATIENT ON DIALYSIS. PATIENT IN STABLE CONDITION. ADMINISTERED MEDS ORDERED. PATIENT TOLERATED THEM WELL. SAFETY PRECAUTION IN PLACE, CALL LIGHT WITHIN REACH. WILL CONTINUE TO MONITOR PATIENT. Addendum: 06/13/17 at 2020 by Julio Chung RN PATIENT C/O 8/10 D/T BACK PAIN. TORADOL PRN ADMINISTERED. PATIENT TOLERATED IT WELL. WILL CONTINUE TO MONITOR.
[2017-06-13] MEDS: CALCIUM ACETATE 667 MG TAB PO SCH ×3 (08:37→17:01)
[2017-06-13] MEDS: FERROUS SULFATE 325 MG TABEC PO SCH ×2 (08:37→17:00)
[2017-06-13] MEDS: KETOROLAC 15 MG/ML VIAL IVP PRN ×2 (08:37→17:01)
[2017-06-13] MEDS: EPOETIN ALFA 10,000 UNITS/ML VIAL SUBQ SCH (08:38)
[2017-06-13] MEDS: METOPROLOL 50 MG TAB PO SCH ×2 (08:53→21:39)
--- NOTE | 2017-06-13 09:23 | NUR ---
PT IN TO SEE THE PATIENT. WILL AWAIT THEIR EVALUATION.
[2017-06-13] MEDS: CINACALCET 30 MG TAB PO SCH (09:30)
[2017-06-13 09:41] LABS: HEMATOCRIT 23.9 % (36-48); MEAN CORPUSCULAR HEMOGLOBIN 33 pg (27-31); MEAN CORPUSCULAR HGB CONC 34 g/dL (33-37); MEAN CORPUSCULAR VOLUME 97 fL (80-94); PLATELET COUNT (AUTO) 246 K/uL (140-450); RED BLOOD CELL COUNT(AUTO) 2.47 MIL/uL (4.20-5.40); RED CELL DISTRIBUTION WIDTH 14.9 % (11.6-13.7); WHITE BLOOD COUNT (AUTO) 23.2 K/uL (4.8-10.8)
[2017-06-13 09:57] LABS: ANION GAP 18.7 (8-16); POTASSIUM 4.7 mmol/L (3.5-5.1)
[2017-06-13 09:58] LABS: PHOSPHORUS 5.7 mg/dL (2.5-4.9)
[2017-06-13 10:05] LABS: CREATININE 6.4 mg/dL (0.6-1.3)
[2017-06-13 10:17] LABS: LYMPHOCYTES % (MANUAL) 6 % (20-46); MONOCYTES % (MANUAL) 2 % (5-12)
[2017-06-13 10:18] LABS: EOSINOPHILS % (MANUAL) 1 % (0-4)
[2017-06-13] MEDS ORDERED: amLODIPine 5 MG TAB PO SCH (10:25)
[2017-06-13] MEDS ORDERED: RIVAROXABAN 15 MG TAB PO SCH (11:30)
[2017-06-13] MEDS ORDERED: RIVA15TA1 PO (11:55)
[2017-06-13] MEDS ORDERED: IBUP-2213 PO (11:55)
[2017-06-13] MEDS ORDERED: ALEN10TA PO (11:55)
[2017-06-13] MEDS ORDERED: AMLO5TAB4 PO (11:55)
[2017-06-13] MEDS ORDERED: ACET-9525 PO (11:55)
[2017-06-13] MEDS ORDERED: LACT10CA PO (11:55)
[2017-06-13] MEDS ORDERED: FERR-18 PO (11:55)
[2017-06-13 12:00] VITALS: BP 117/70
--- NOTE | 2017-06-13 12:42 | NUR ---
PATIENT RESTING IN BED, FAMILY AT BEDSIDE. ADMINISTERED MEDS ORDERED. PATIENT TOLERATED THEM WELL. SAFETY PRECAUTION IN PLACE, CALL LIGHT WITHIN REACH. WILL CONTINUE TO MONITOR PATIENT.
[2017-06-13 16:00] VITALS: BP 116/55
--- NOTE | 2017-06-13 17:03 | NUR ---
PATIENT RESTING IN BED, FAMILY AT BEDSIDE. ADMINISTERED MEDS ORDERED. PATIENT TOLERATED THEM WELL. SAFETY PRECAUTION IN PLACE, CALL LIGHT WITHIN REACH. WILL CONTINUE TO MONITOR PATIENT. Addendum: 06/13/17 at 2020 by Julio Chung RN PATIENT C/O 8/10 D/T BACK PAIN. TORADOL PRN ADMINISTERED. PATIENT TOLERATED IT WELL. WILL CONTINUE TO MONITOR.
--- NOTE | 2017-06-13 19:40 | NUR ---
REPORT GIVEN TO DATA SPECIALIST NURSE AT BEDSIDE FOR CONTINUITY OF CARE. PATIENT IN STABLE CONDITION.
--- NOTE | 2017-06-13 19:41 | NUR ---
RECEIVED PT FROM RICHELLE PT IS AAOX4 AMBULATORY HL ON RT FA PATENT ON TELMETRY ST NOT DISTRESS NOTED AT THIS TIME INITIAL ASSESSMENT DONE
[2017-06-13 20:00] VITALS: BP 142/76
--- NOTE | 2017-06-13 21:00 | NUR ---
DR ALTAMIRANO IS HERE AND SEE THE PT
--- NOTE | 2017-06-13 22:00 | NUR ---
PT RESTING ON BED WATCHING TV NOT DISTRESS NOTED ON TELEMETRY SR RELATIVES AT BED SIDE
[2017-06-14] VITALS: BP 132/74
--- NOTE | 2017-06-14 01:00 | NUR ---
PT SLEEPING WELL DENIES ANY PAIN OR DISCOMFORT ON TELEMETRY SR REPOSITIONED Q2H
[2017-06-14 04:00] VITALS: BP 123/72
--- NOTE | 2017-06-14 04:00 | NUR ---
SPONGE BATH GIVEN LINEN CHANGED NOT DISCOMFORT NOTED ON TELEMETRY SR
[2017-06-14] MEDS: KETOROLAC 15 MG/ML VIAL IVP PRN (04:30)
[2017-06-14] MEDS: ALENDRONATE 10 MG TAB PO SCH (05:44)
--- NOTE | 2017-06-14 06:07 | NUR ---
AFTER PAIN MEDIC GIVEN PT SLEEPS QUIET NOT DISTRESS NOTED ON TELE SR
[2017-06-14 07:00] LABS: HEMATOCRIT 24.5 % (36-48); HEMOGLOBIN 8.2 g/dL (12.0-16.0); MEAN CORPUSCULAR HEMOGLOBIN 32 pg (27-31); MEAN CORPUSCULAR HGB CONC 33 g/dL (33-37); MEAN CORPUSCULAR VOLUME 97 fL (80-94); PLATELET COUNT (AUTO) 197 K/uL (140-450); RED BLOOD CELL COUNT(AUTO) 2.54 MIL/uL (4.20-5.40); RED CELL DISTRIBUTION WIDTH 15.2 % (11.6-13.7); WHITE BLOOD COUNT (AUTO) 20.2 K/uL (4.8-10.8)
[2017-06-14] MEDS: ALBUTEROL SULFATE/IPRATROPIU 3 ML SOL IH SCH ×3 (07:07→19:51)
[2017-06-14 07:13] LABS: ANION GAP 15.3 (8-16); CARBON DIOXIDE 28.4 mmol/L (21-32); POTASSIUM 3.7 mmol/L (3.5-5.1)
--- NOTE | 2017-06-14 07:15 | NUR ---
RECEIVED REPORT FROM MANAGER COMPETITIVE INTELLIGENCE NURSE AT BEDSIDE FOR CONTINUITY OF CARE. PT IS A/OX4, ON ROOM AIR, BREATHING EVEN AND UNLABORED. 22G IV TO RIGHT FOREARM SL, INTACT, PATENT, AND ASYMPTOMATIC. PT REPORTS GENERALIZED WEAKNESS. PT SKIN INTACT. UPDATED BOARD. DISCUSSED PLAN OF CARE WITH PT, PT VERBALIZED UNDERSTANDING. VITAL SIGNS WITHIN NORMAL LIMITS. PT IN STABLE CONDITION, NO SIGNS OF DISTRESS NOTED. BED IN LOWEST POSITION, CALL LIGHT WITHIN REACH. WILL CONTINUE TO MONITOR PATIENT.
[2017-06-14 07:17] LABS: PHOSPHORUS 5.1 mg/dL (2.5-4.9)
[2017-06-14 07:21] LABS: CREATININE 5.1 mg/dL (0.6-1.3)
[2017-06-14 07:42] LABS: LYMPHOCYTES % (MANUAL) 8 % (20-46); MONOCYTES % (MANUAL) 3 % (5-12)
[2017-06-14 08:00] VITALS: BP 140/82
[2017-06-14] MEDS: SEVELAMER CARBONATE 800 MG TAB PO SCH ×3 (08:29→17:41)
[2017-06-14] MEDS: DOCUSATE SODIUM 100 MG GELCAP PO SCH ×2 (08:29→20:35)
[2017-06-14] MEDS: amLODIPine 5 MG TAB PO SCH (08:29)
[2017-06-14] MEDS: CYCLOBENZAPRINE 10 MG TAB PO SCH ×3 (08:29→17:41)
[2017-06-14] MEDS: CINACALCET 30 MG TAB PO SCH (08:29)
[2017-06-14] MEDS: LACTOBACILLUS RHAMNOSUS GG 1 EACH CAP PO SCH (08:29)
[2017-06-14] MEDS: CALCIUM ACETATE 667 MG TAB PO SCH ×3 (08:30→17:41)
[2017-06-14] MEDS: FERROUS SULFATE 325 MG TABEC PO SCH ×2 (08:30→17:41)
[2017-06-14] MEDS: METOPROLOL 50 MG TAB PO SCH ×2 (08:30→20:35)
--- NOTE | 2017-06-14 08:32 | NUR ---
ADMINISTERED ORDERED MEDICATIONS. PATIENT TOLERATED THEM WELL. PATIENT SITTING IN BED, EATING BREAKFAST AND WATCHING TV. NO SIGNS OF DISTRESS OR SOB NOTED. PATIENT DENIES PAIN AT THIS TIME. SAFETY PRECAUTION IN PLACE, CALL LIGHT WITHIN REACH. WILL CONTINUE TO MONITOR PATIENT.
[2017-06-14] MEDS ORDERED: RIVAROXABAN 15 MG TAB PO SCH (09:00)
[2017-06-14 12:00] VITALS: BP 121/71
--- NOTE | 2017-06-14 12:09 | NUR ---
CM NOTE LM W/ AGATA FROM [facility] (C: [phone]) RE. IV ABX INFUSION DURING HD TX.
[2017-06-14] MEDS ORDERED: fentaNYL 0.05 MG/ML VIAL ONE (12:16)
[2017-06-14] MEDS ORDERED: MIDAZOLAM 2 MG/2 ML VIAL ONE (12:16)
--- NOTE | 2017-06-14 12:21 | NUR ---
PATIENT TAKEN TO CT TO DO CT NEEDLE GUIDED BIOPSY OF LEFT ANKLE MASS. CONSENT OBTAINED. PATIENT IN STABLE CONDITION.
--- NOTE | 2017-06-14 13:30 | NUR ---
PATIENT RETURNED FROM CT. PATIENT CURRENTLY EATING LUNCH. MOTHER AT BEDSIDE. SAFETY PRECAUTION IN PLACE, CALL LIGHT WITHIN REACH. WILL CONTINUE TO MONITOR PATIENT.
[2017-06-14] MEDS: HYDROcodone/APAP 5/325 MG 1 TAB TAB PO PRN ×2 (13:47→17:38)
--- NOTE | 2017-06-14 13:47 | NUR ---
MEDICATIONS ADMINISTERED ORDERED, NORCO PRN GIVEN D/T PT STATING PAIN 10/16 D/T CT NEEDLE BIOPSY DONE EARLIER. PATIENT TOLERATED THEM WELL. PATIENT RESTING IN BED, WATCHING TV, MOTHER AT BEDSIDE. NO SIGNS OF DISTRESS OR SOB NOTED. SAFETY PRECAUTION IN PLACE, CALL LIGHT WITHIN REACH. WILL CONTINUE TO MONITOR PATIENT.
[2017-06-14] MEDS ORDERED: VANCOMYCIN 750 MG in DEXTROSE 5% 250 ML IV SCH (14:00)
--- NOTE | 2017-06-14 14:59 | NUR ---
Went to pt room 3x to offer tx but pt was eating. Returned right now and pt is asleep.
--- NOTE | 2017-06-14 15:46 | NUR ---
PATIENT RESTING IN BED, WATCHING TV, MOTHER AT BEDSIDE. NO SIGNS OF DISTRESS OR SOB NOTED. SAFETY PRECAUTION IN PLACE, CALL LIGHT WITHIN REACH. WILL CONTINUE TO MONITOR PATIENT.
--- NOTE | 2017-06-14 15:51 | NUR ---
06/14/17 RD FOLLOW UP COMPLETED. PLEASE REFER TO NUTRITION ASSESSMENT UNDER CARE ACTIVITY FOR ESTIMATED NUTRITIONAL NEEDS. CONTINUE RENAL DIET TOLERATED. NURSING AND DIETARY STAFF TO CONTINUE TO ENCOURAGE INCREASED PO INTAKE. RD TO FOLLOW-UP IN 2-3 DAYS PATIENT IS HIGH RISK. MURRAY GRANT, RD
[2017-06-14 16:00] VITALS: BP 135/81
--- NOTE | 2017-06-14 17:41 | NUR ---
MEDICATIONS ADMINISTERED ORDERED, NORCO PRN GIVEN D/T PT STATING PAIN 10/ D/T CT NEEDLE BIOPSY DONE EARLIER. PATIENT REQUESTED TO SPEAK TO DR. LAWSON ABOUT IV PAIN MEDICATION. DR. LAWSON INFORMED. DR. LAWSON CAME AND SPOKE TO PATIENT ABOUT PENDING DISCHARGE TOMORROW AND HOW PATIENT CAN ONLY RECEIVED PO MEDICATION IN OUTPATIENT SETTING. PATIENT VERBALIZED UNDERSTANDING. PATIENT RESTING IN BED, WATCHING TV, MOTHER AT BEDSIDE. NO SIGNS OF DISTRESS OR SOB NOTED. SAFETY PRECAUTION IN PLACE, CALL LIGHT WITHIN REACH. WILL CONTINUE TO MONITOR PATIENT.
[2017-06-14] MEDS ORDERED: LEVOFLOXACIN 500 MG/D5W PREMIX 100 ML IV SCH (18:00)
--- NOTE | 2017-06-14 19:42 | NUR ---
REPORT GIVEN TO HAND WOODWORKING SANDER NURSE AT BEDSIDE FOR CONTINUITY OF CARE. PATIENT IN STABLE CONDITION. MOTHER AT BEDSIDE.
--- NOTE | 2017-06-14 19:43 | NUR ---
RECEIVED PT FROM SOL RN PT IS AAOX4 AMBULATORY IV ON RT FA INFUSING WELL ON TELMETRY SR NOT DISTRESS NOTED RELATIVES AT BED SIDE INITIAL ASSESSMENT DONE
[2017-06-14 20:00] VITALS: BP 140/80
--- NOTE | 2017-06-14 22:00 | NUR ---
PT HAS BEEN MONITORING CLOSE REMAIN STABLE ON TELE SR GETTING TO SLEEP
[2017-06-15] VITALS: BP 142/86
--- NOTE | 2017-06-15 01:00 | NUR ---
pt sleeping welll not distress noted on tele sr
--- NOTE | 2017-06-15 03:46 | NUR ---
SPONGE BATH GIVEN LINEN CHANGED PT ON TELEMETRY SR REMAIN STABLE NOT DISTRESS NOTED
[2017-06-15 04:00] VITALS: BP 152/85
[2017-06-15] MEDS: ALENDRONATE 10 MG TAB PO SCH (05:58)
--- NOTE | 2017-06-15 06:07 | NUR ---
PT VERBALIZED TO FEEL BETTER NOT DISTRESS NOTED ON TELEMETRY SR
[2017-06-15] MEDS: ALBUTEROL SULFATE/IPRATROPIU 3 ML SOL IH SCH ×2 (07:04→12:33)
[2017-06-15 07:10] LABS: ANION GAP 19.9 (8-16); CARBON DIOXIDE 24.7 mmol/L (21-32); POTASSIUM 3.6 mmol/L (3.5-5.1)
[2017-06-15 07:16] LABS: MAGNESIUM 2.1 mg/dL (1.8-2.4); PHOSPHORUS 5.2 mg/dL (2.5-4.9)
[2017-06-15 07:52] LABS: CREATININE 6.9 mg/dL (0.6-1.3)
[2017-06-15 08:00] VITALS: BP 140/78
[2017-06-15] MEDS ORDERED: VIT-B COMP/VIT-C/FOLIC ACID 1 TAB PO SCH (09:00)
[2017-06-15] MEDS ORDERED: RIVAROXABAN 15 MG TAB PO SCH (09:00)
[2017-06-15] MEDS: EPOETIN ALFA 10,000 UNITS/ML VIAL SUBQ SCH (09:00)
[2017-06-15] MEDS ORDERED: CINACALCET 30 MG TAB PO SCH (09:00)
[2017-06-15] MEDS ORDERED: CALCITRIOL 0.25 MCG CAPLF PO SCH (09:00)
--- NOTE | 2017-06-15 09:38 | NUR ---
SPOKE WITH AGATA FROM [facility]. SHE SAID SHE RECEIVED THE ORDER FOR THE IV VANCOMYCIN TO BE GIVEN AT THE [facility]IALYSIS CENTER. SHE SAID THEY NEEDED MORE INFORMATION. I FAXED THE ORDER, FACE SHEET, PROGRESS NOTES, BLOOD CULTURE AND PROGRESS NOTES FROM [place]. SHE SAID TO FAX THEM TO [facility] AT [phone] PHONE [phone], ATTENTION IDA OR EMANUEL, WHICH I DID. ALSO FAXED THE PROCEDURE FOR NEEDLE BIOPSY.
[2017-06-15] MEDS: SEVELAMER CARBONATE 800 MG TAB PO SCH (09:56)
[2017-06-15] MEDS: DOCUSATE SODIUM 100 MG GELCAP PO SCH (09:56)
[2017-06-15] MEDS: CALCIUM ACETATE 667 MG TAB PO SCH (09:56)
[2017-06-15] MEDS: FERROUS SULFATE 325 MG TABEC PO SCH (09:58)
[2017-06-15] MEDS: CYCLOBENZAPRINE 10 MG TAB PO SCH (09:59)
[2017-06-15] MEDS: METOPROLOL 50 MG TAB PO SCH (10:00)
[2017-06-15] MEDS: amLODIPine 5 MG TAB PO SCH (10:00)
[2017-06-15] MEDS: LACTOBACILLUS RHAMNOSUS GG 1 EACH CAP PO SCH (10:01)
[2017-06-15 10:06] LABS: HEMATOCRIT 22.5 % (36-48); HEMOGLOBIN 7.1 g/dL (12.0-16.0); MEAN CORPUSCULAR HEMOGLOBIN 31 pg (27-31); MEAN CORPUSCULAR HGB CONC 32 g/dL (33-37); MEAN CORPUSCULAR VOLUME 98 fL (80-94); PLATELET COUNT (AUTO) 171 K/uL (140-450); RED CELL DISTRIBUTION WIDTH 15.6 % (11.6-13.7); WHITE BLOOD COUNT (AUTO) 11.5 K/uL (4.8-10.8)
[2017-06-15 10:08] LABS: BASOPHILS % (AUTO) 0.2 % (0.0-2.0); EOSINOPHILS % (AUTO) 0.4 % (0.0-4.0); MONOCYTES % (AUTO) 5.5 % (1.7-9.3); NEUTROPHILS # (AUTO) 8.5 K/uL (1.8-7.7); NEUTROPHILS % (AUTO) 81.9 % (42.2-75.2)
[2017-06-15 10:09] LABS: LYMPHOCYTES # (AUTO) 1.2 K/uL (2.5-16.5); MONOCYTES # (AUTO) 0.6 K/uL (0.8-1.0)
[2017-06-15] MEDS: HYDROcodone/APAP 5/325 MG 1 TAB TAB PO PRN (10:19)
--- NOTE | 2017-06-15 11:11 | NUR ---
CALLED [facility] AND SPOKE WITH KELSIE. SHE SAID SHE WOULD GIVE THE INQUIRY TO THE NURSE AND THEY WILL CALL ME BACK. [facility] PH [phone].
[2017-06-15] MEDS ORDERED: VANC1PLA15 IV (12:17)
[2017-06-15] MEDS ORDERED: LEVO750T2 PO (12:17)
--- NOTE | 2017-06-15 14:24 | NUR ---
SPOKE WITH EMANUEL FROM [facility]. HE SAID THE IV ANTIBIOTIC, VANCOMYCIN , IS SET AND AND THE PATIENT CAN START TOMORROW. I SPOKE WITH DR. HAYDEN AND INFORMED HER PLAN DISCHARGE TODAY.
--- NOTE | 2017-06-15 14:30 | NUR ---
PT DCD HOME.GIVEN INS
--- NOTE | 2017-06-15 14:30 | NUR ---
DCD HOME AND IV REMOVED AND INSTRUCTIONS GIVEN AND UNDERSTOOD.FAMILY HERE AND DCD TO THEM.
== END 2017-06-15 15:00 | disposition home or self-care (01) | DRG 720 ==
LOC: MED 01:43 → MTU 04:03
PROVIDERS: ADMIT Family Medicine; ATTEND Family Medicine
PROC: 5A1D70Z Performance of Urinary Filtration, Intermittent, Less than 6 Hours Per Day (ICD-10-PCS; 2017-06-10)
PROC: 5A1D70Z Performance of Urinary Filtration, Intermittent, Less than 6 Hours Per Day (ICD-10-PCS; 2017-06-11)
PROC: 0QBH3ZX Excision of Left Tibia, Percutaneous Approach, Diagnostic (ICD-10-PCS; 2017-06-13)
PROC: 5A1D70Z Performance of Urinary Filtration, Intermittent, Less than 6 Hours Per Day (ICD-10-PCS; 2017-06-13)
PROC: 0QBH3ZX Excision of Left Tibia, Percutaneous Approach, Diagnostic (ICD-10-PCS; principal; 2017-06-14)
DX: A41.9 Sepsis, unspecified organism (principal); N17.0 Acute kidney failure with tubular necrosis; I26.99 Other pulmonary embolism without acute cor pulmonale; J96.01 Acute respiratory failure with hypoxia; E43 Unspecified severe protein-calorie malnutrition; I27.82 Chronic pulmonary embolism; I50.43 Acute on chronic combined systolic (congestive) and diastolic (congestive) heart failure; R16.2 Hepatomegaly with splenomegaly, not elsewhere classified; N25.81 Secondary hyperparathyroidism of renal origin; E87.5 Hyperkalemia; K21.9 Gastro-esophageal reflux disease without esophagitis; M94.0 Chondrocostal junction syndrome [Tietze]; N18.6 End stage renal disease; D64.9 Anemia, unspecified; J45.909 Unspecified asthma, uncomplicated; R22.42 Localized swelling, mass and lump, left lower limb; M25.511 Pain in right shoulder; E04.1 Nontoxic single thyroid nodule; E03.9 Hypothyroidism, unspecified; E83.39 Other disorders of phosphorus metabolism; M89.9 Disorder of bone, unspecified; I13.2 Hypertensive heart and chronic kidney disease with heart failure and with stage 5 chronic kidney disease, or end stage renal disease; E11.22 Type 2 diabetes mellitus with diabetic chronic kidney disease; N83.209 Unspecified ovarian cyst, unspecified side; D50.9 Iron deficiency anemia, unspecified; Z68.20 Body mass index [BMI] 20.0-20.9, adult; Z88.0 Allergy status to penicillin; Z99.2 Dependence on renal dialysis; Z88.5 Allergy status to narcotic agent
CPT/HCPCS: 36415; 70460; 70491; 71045; 71275; 73610; 73700; 78320; 80048; 80053; 80202; 82040; 82150; 82607; 82728; 82746; 83036; 83540; 83605; 83690; 83735; 83880; 83970; 84100; 84439; 84443; 84479; 84484; 84550; 84703; 85025; 85045; 85379; 85610; 85730; 87040; 87070; 87075; 87081; 87205; 90935; 93005; 93970; 94640; 96372; 96374; 96375; 99285; J0696; J0885; J1170; J1200; J1644; J1650; J1885; J1956; J2001; J2250; J2405; J2543; J2916; J2930; J3010; J3370; J3490; J7030; J7060; J7620; Q0092; Q9967

== ENCOUNTER 2017-06-16 17:26 | Inpatient (IN) | payer MEDICAID ==
[~2017-06-16] VITALS: Ht 165.1 cm; Wt 56.2 kg
[~2017-06-16 17:26] MED LIST changes: +ACET-9525 PO; +ALEN10TA PO; +AMLO5TAB4 PO; +FERR-18 PO; -HYDR-1100 PO; +IBUP-2213 PO; +LACT10CA PO; +LEVO750T2 PO; -LISI40TA4 PO; -NIFE30TE8 PO; +RIVA15TA1 PO; +VANC1PLA15 IV; -[UNRECOGNIZED DRUG - OTHER] PO
[2017-06-16 17:39] VITALS: BP 156/82
--- NOTE | 2017-06-16 17:46 | NUR ---
SPOKE WITH DR. IRELAND ABOUT PT'S CONDITION AND VERBALIZED ORDER FOR EKG IN TRIAGE.
--- NOTE | 2017-06-16 18:26 | NUR ---
Patient to bed 1. RN evaluating patient at bedside.
--- NOTE | 2017-06-16 18:30 | NUR ---
26/F BIB FAMILY C/O d/c yesterday from here and c/o constipation; LBM yesterday and states "i can't eat or drink anything because it gets stuck in my chest and then I have to throw up." hx kidney failure, dialysis T/TH/SAT, HTN. LFA FISTULA FOR DIALYSIS.AAOX4 WITH EVEN AND STEADY GAIT; LUNGS CLEAR BL. PATIENT STATES PAIN OF 0/10 AT THIS TIME. PATIENT POSITIONED FOR COMFORT; HOB ELEVATED; BEDRAILS UP X2; BED DOWN. ER MD MADE AWARE OF PT STATUS.
--- NOTE | 2017-06-16 18:40 | NUR ---
PT HAS ESRD [facility] HEMODIALYSIS 2 TIMES/WK. PT STATED " I CAN'T URENATE X 7 YEARS. Addendum: 06/16/17 at [address] IRELAND.
[2017-06-16 18:45] LABS: BASOPHILS # (AUTO) 0.1 K/uL (0.00-0.22); EOSINOPHILS # (AUTO) 0.1 K/uL (0-0.4); HEMATOCRIT 25.1 % (36-48)
[2017-06-16 18:57] LABS: BASOPHILS % (AUTO) 0.6 % (0.0-2.0); EOSINOPHILS % (AUTO) 0.6 % (0.0-4.0); HEMOGLOBIN 8.3 g/dL (12.0-16.0); LYMPHOCYTES % (AUTO) 7.5 % (20.5-51.1); MEAN CORPUSCULAR HEMOGLOBIN 32 pg (27-31); MEAN CORPUSCULAR HGB CONC 33 g/dL (33-37); MEAN CORPUSCULAR VOLUME 96 fL (80-94); MONOCYTES # (AUTO) 0.6 K/uL (0.8-1.0); MONOCYTES % (AUTO) 4.2 % (1.7-9.3); NEUTROPHILS # (AUTO) 12.1 K/uL (1.8-7.7); NEUTROPHILS % (AUTO) 87.1 % (42.2-75.2); PLATELET COUNT (AUTO) 175 K/uL (140-450); RED BLOOD CELL COUNT(AUTO) 2.61 MIL/uL (4.20-5.40); RED CELL DISTRIBUTION WIDTH 15.1 % (11.6-13.7); WHITE BLOOD COUNT (AUTO) 13.9 K/uL (4.8-10.8)
--- NOTE | 2017-06-16 19:21 | NUR ---
Pt report given to DOMINIC EMERSON. Transfer of care at this time.
[2017-06-16 19:22] LABS: ALBUMIN 2.1 g/dL (3.4-5.0); ANION GAP 15.1 (8-16); CARBON DIOXIDE 31.4 mmol/L (21-32); CREATININE 3.7 mg/dL (0.6-1.3); POTASSIUM 3.5 mmol/L (3.5-5.1); TOTAL BILIRUBIN 0.6 mg/dL (0.0-1.0)
[2017-06-16] MEDS ORDERED: ONDANSETRON 4 MG ODT PO ONE (19:30)
[2017-06-16] MEDS ORDERED: ACETAMINOPHEN 325 MG TAB ONE (19:48)
[2017-06-16] MEDS ORDERED: ACETAMINOPHEN 650 MG/20.3 ML UDC PO ONE (19:50)
[2017-06-16] MEDS ORDERED: ONDANSETRON 4 MG/2 ML VIAL IVP ONE (20:00)
[2017-06-16] MEDS ORDERED: ONDANSETRON 4 MG/2 ML VIAL ONE (20:42)
--- NOTE | 2017-06-16 21:22 | NUR ---
PATIENT LYING IN BED WITH BED IN LOWEST POSITION. V/S FOLLOWS t 99.3 r 26 b/p 153/81 02 93% WITH N/C AT 3 l RESIDENT GIVEN ZOFRAN IV PUSH FORN/V PAIN LEVEL AT 5 . LUNG SOUNDS SLIGHTLY DIMMINISHED ON RIGHT SIDE . PT RESIDENT RESTING COMFORTABLE IN BED WITH LIGHTS OFF.
[2017-06-16] MEDS ORDERED: LEVOFLOXACIN 750 MG/D5W PREMIX 150 ML IV ONE (21:40)
[2017-06-16 21:44] LABS: PROTHROMBIN TIME 11.1 secs (10.8-13.4)
[2017-06-16] MEDS ORDERED: IBUPROFEN 600 MG TAB PO PRN (22:55)
[2017-06-16] MEDS ORDERED: SOD CHLORIDE IV SCH (22:55)
[2017-06-16] MEDS ORDERED: VANCOMYCIN IV SCH (22:55)
[2017-06-16] MEDS ORDERED: HYDROcodone/APAP 5/325 MG 1 TAB TAB PO PRN ×2 (22:55→23:00)
[2017-06-16] MEDS ORDERED: LEVOFLOXACIN 750 MG TAB PO SCH (22:55)
[2017-06-16] MEDS ORDERED: ACETAMINOPHEN 325 MG TAB PO PRN (23:00)
[2017-06-16] MEDS ORDERED: LORazepam 2 MG/ML VIAL IVP PRN (23:00)
--- NOTE | 2017-06-16 23:05 | NUR ---
PT RESTING IN BED, ON NC 4 LT, VSS. AWATING FOR ADMITING ORDERS
--- NOTE | 2017-06-16 23:26 | NUR ---
Patient will be admitted to care of DR MARTINEZ. Admited to TELEMETRY. Will go to [facility]. Belongings list completed. Report to DOMINIC COLE.
--- NOTE | 2017-06-16 23:35 | NUR ---
ADMITTED PT FROM ER VIA FROYLAN. AAOX4. NO DISTRESS NOTED. IV TO LEFT FA #22G, PATENT AND INTACT. AV FISTULA TO LEFT FA, DRESSING CLEAN, DRY AND INTACT. NO C/O PAIN OR NAUSEA AT THIS TIME. ORIENTED PT TO ROOM. DISCUSSED PLAN OF CARE, PT VERBALIZED UNDERSTANDING. CALL LIGHT WITHIN REACH. WILL CONTINUE TO MONITOR. Addendum: 06/17/17 at 0434 by Josh Mcclendon RN INCORRECT
--- NOTE | 2017-06-16 23:35 | NUR ---
ADMITTED PT FROM ER VIA FROYLAN. AAOX4. NO DISTRESS NOTED. IV TO RIGHT FA #22G, PATENT AND INTACT. AV FISTULA TO LEFT FA, DRESSING CLEAN, DRY AND INTACT. NO C/O PAIN OR NAUSEA/VOMITING AT THIS TIME. ORIENTED PT TO ROOM. DISCUSSED PLAN OF CARE, PT VERBALIZED UNDERSTANDING. PT'S AT BEDSIDE. CALL LIGHT WITHIN REACH. WILL CONTINUE TO MONITOR.
[2017-06-16 23:40] VITALS: BP 141/74
[2017-06-17] MEDS: DEXT 5% /NACL 0.9% 1,000 ML IV SCH ×2 (00:05→10:55)
--- NOTE | 2017-06-17 00:15 | NUR ---
PT C/O SHOULDER PAIN BUT NOT RADIATING TO ANY PART OF THE BODY, 7/10 PAIN SCALE. PT REFUSED PO PAIN MEDS. PER PT, SHE DOESN'T WANT PO MEDS BEC SHE VOMIT EVERYTHING SHE SWALLOWS. PAGED DR. Lucero HUANG.
--- NOTE | 2017-06-17 00:17 | NUR ---
RECEIVED CALL FROM DR. Maxwell MARTINEZ. ORDERED TORADOL 30 MG IVP Q6H PRN.
[2017-06-17] MEDS ORDERED: KETOROLAC 30 MG/ML VIAL IVP PRN (00:20)
--- NOTE | 2017-06-17 00:30 | NUR ---
SPOKE WITH THE PHARMACIST OVER THE PHONE. PER PHARMACIST, PT CAN'T HAVE TORADOL, CREA 3.7. WILL PAGE DR. Lucero HUANG.
--- NOTE | 2017-06-17 01:35 | NUR ---
PAGED DR. HUANG 9 TIMES, NO CALL BACK. WILL PAGE AGAIN.
--- NOTE | 2017-06-17 01:53 | NUR ---
SPOKE WITH DR. Lucero HUANG. ORDERED DILAUDID 1 MG IVP Q6H PRN FOR SEVERE PAIN.
--- NOTE | 2017-06-17 01:54 | NUR ---
DR. Lucero HUANG IS AWARE OF PT'S ALLERGY WITH MORPHINE. PER PT, SHE HAS NO ALLERGY WITH DILAUDID AND SHE WAS GETTING DILAUDID WHEN SHE WAS ADMITTED HERE THIS WEEK.
[2017-06-17] MEDS: HYDROmorphone PFS 2 MG/ML SYR IVP PRN ×4 (03:13→20:19)
[2017-06-17 04:00] VITALS: BP 136/76
--- NOTE | 2017-06-17 04:30 | NUR ---
PT SLEEPING BUT EASILY AROUSABLE. NO S/S OF PAIN OR DISCOMFORT. CALL LIGHT WITHIN REACH.
--- NOTE | 2017-06-17 06:56 | NUR ---
PATIENT HAS BEEN SCREENED AND CATEGORIZED MODERATE NUTRITION RISK. PATIENT WILL BE SEEN WITHIN 3-5 DAYS OF ADMISSION. 06/18/17-06/20/17 CHANO GUZMAN MS, RDN
--- NOTE | 2017-06-17 07:15 | NUR ---
ENDORSED PT TO DAY SHIFT NURSE. PT IN STABLE CONDITION.
--- NOTE | 2017-06-17 07:30 | NUR ---
RECEIVED PT AA0X4. NO SOB NOTED, C/O PAIN AT THIS TIME. IV TO RT HAND PATENT AND INTACT. WITH LT ARM AV FISTULA, BRUITS AND THRILL NOTED. CHEST, DIMINISHED AIR ENTRY TO THE BASES, PT WITH OXYGEN AT LITERS PER VIA NASAL CANNULA WITH SATS 97%. ABDOMEN SOFT, BOWEL SOUNDS PRESENT. INSTRUCTED PT TO CALL FOR ASSISTANCE, CALL LIGHT WITHIN REACH, PT VERBALIZED UNDERSTANDING.
[2017-06-17 07:59] LABS: BASOPHILS # (AUTO) 0.1 K/uL (0.00-0.22); BASOPHILS % (AUTO) 0.5 % (0.0-2.0); EOSINOPHILS # (AUTO) 0.1 K/uL (0-0.4); EOSINOPHILS % (AUTO) 0.8 % (0.0-4.0); HEMATOCRIT 22.1 % (36-48); HEMOGLOBIN 7.2 g/dL (12.0-16.0); LYMPHOCYTES # (AUTO) 0.8 K/uL (2.5-16.5); LYMPHOCYTES % (AUTO) 5.6 % (20.5-51.1); MEAN CORPUSCULAR HEMOGLOBIN 31 pg (27-31); MEAN CORPUSCULAR HGB CONC 33 g/dL (33-37); MEAN CORPUSCULAR VOLUME 96 fL (80-94); MONOCYTES # (AUTO) 0.7 K/uL (0.8-1.0); NEUTROPHILS # (AUTO) 11.9 K/uL (1.8-7.7); NEUTROPHILS % (AUTO) 88.1 % (42.2-75.2); PLATELET COUNT (AUTO) 145 K/uL (140-450); RED BLOOD CELL COUNT(AUTO) 2.29 MIL/uL (4.20-5.40); RED CELL DISTRIBUTION WIDTH 15.1 % (11.6-13.7); WHITE BLOOD COUNT (AUTO) 13.6 K/uL (4.8-10.8)
[2017-06-17 08:00] VITALS: BP 149/85
[2017-06-17] MEDS ORDERED: FERROUS SULFATE 325 MG TABEC PO SCH (08:00)
[2017-06-17 08:23] LABS: ANION GAP 14.1 (8-16); CARBON DIOXIDE 31.8 mmol/L (21-32); POTASSIUM 3.9 mmol/L (3.5-5.1)
[2017-06-17 09:00] LABS: CREATININE 4.9 mg/dL (0.6-1.3)
[2017-06-17] MEDS ORDERED: CALCIUM ACETATE 667 MG PO SCH (09:00)
[2017-06-17] MEDS ORDERED: cloNIDine-TTS2 0.2 MG/24 HR 1 EA PATCH TD SCH (09:00)
[2017-06-17] MEDS: amLODIPine 5 MG TAB PO SCH (09:20)
[2017-06-17] MEDS: METOPROLOL 50 MG TAB PO SCH ×2 (09:20→20:44)
[2017-06-17] MEDS: CINACALCET 30 MG TAB PO SCH (09:21)
[2017-06-17] MEDS: LACTOBACILLUS RHAMNOSUS GG 1 EACH CAP PO SCH (09:21)
[2017-06-17] MEDS ORDERED: MAGNESIUM HYDROXIDE 2400 MG/30 ML UDC PO SCH (10:40)
[2017-06-17] MEDS: SEVELAMER CARBONATE 800 MG TAB PO SCH ×2 (12:00→18:08)
[2017-06-17] MEDS: CALCIUM ACETATE 667 MG TAB PO SCH ×2 (12:00→18:08)
[2017-06-17] MEDS ORDERED: FLUCONAZOLE 100 MG/NS PREMIX 50 ML IV SCH (13:00)
--- NOTE | 2017-06-17 14:30 | NUR ---
CONSENT FOR EGD SIGNED BY PT, VERBALIZED FULL UNDERSTANDING OF THE PROCEDURE EXPLAINED BY DR. Harris HINTON AT THE BEDSIDE EARLIER.
--- NOTE | 2017-06-17 15:35 | NUR ---
SPOKE WITH JOHNIE FROM [facility], STATED THEY CANNOT DO THE CT NECK WITH CONTRAST DUE TO PT'S ELEVATED CREATININE AND THEY CANNOT DO THE BARIUM SWALLOW/ XRAY ESOPHAGRAM STAT TODAY. CALLED DR. Harris HINTON AND NOTIFIED THE ISSUE, STATED TO DO THE BARIUM SWALLOW A ROUTINE ORDER FOR TODAY OR TO HAVE THE PROCEDURE DONE TOMORROW WHEN THERE WILL BE A RADIOLOGIST AVAILABLE.
[2017-06-17 16:00] VITALS: BP 136/72
[2017-06-17] MEDS ORDERED: VANCOMYCIN PER PHARMACY MC PRN (16:40)
[2017-06-17] MEDS ORDERED: RENAL DOSING PER PHARMACY MC PRN (16:45)
[2017-06-17] MEDS ORDERED: RIVAROXABAN 15 MG TAB PO SCH (17:00)
[2017-06-17] MEDS: ONDANSETRON 4 MG/2 ML VIAL IVP PRN (18:05)
[2017-06-17] MEDS: cloNIDine 0.1 MG TAB PO SCH (18:10)
--- NOTE | 2017-06-17 19:00 | NUR ---
PT AWAKE. NO C/O PAIN AT THIS TIME. WILL ENDORSE TO NEXT SHIFT NURSE FOR CONTINUITY OF CARE.
--- NOTE | 2017-06-17 19:10 | NUR ---
RECEIVED REPORT FROM DAY SHIFT NURSE. AAOX4. PT ON O2 AT 2 L/MIN VIA NC. NO ACUTE DISTRESS NOTED. NO C/O PAIN AT THIS TIME. IV TO RIGHT FA #22G, D5NS AT 42 ML/HR, INFUSING WELL. AV FISTULA TO LEFT FA. DISCUSSED PLAN OF CARE, PT VERBALIZED UNDERSTANDING. SAFETY PRECAUTION IN PLACE. CALL LIGHT WITHIN REACH.
[2017-06-17 20:00] VITALS: BP 148/79
[2017-06-17] MEDS: LACTULOSE 20 GM/30 ML UDC PO SCH (20:44)
[2017-06-17] MEDS ORDERED: LEVOFLOXACIN 500 MG TAB PO SCH (21:00)
--- NOTE | 2017-06-17 21:10 | NUR ---
TRIED TO GIVE PO MEDS CRUSHED WITH APPLESAUCE. PT VOMITTED SOON SHE SWALLOWED IT. DR. ALTAMIRANO IN THE ROOM TO SEE PT. DR. ALTAMIRANO ORDERED TO DC LEVAQUIN 500 MG PO AND ORDERED LEVAQUIN 500 MG IVPB NOW THEN LEVAQUIN 500 MG IVPB Q48H.
--- NOTE | 2017-06-17 21:13 | NUR ---
PT REFUSED ZOFRAN. PT STATED SHE WILL JUST REST FOR NOW. NO RESP. DISTRESS NOTED. WILL CONTINUE TO MONITOR. CALL LIGHT WITHIN REACH.
--- NOTE | 2017-06-17 21:15 | NUR ---
PAGED DR. Lucero HUANG. WAITING FOR CALL BACK.
--- NOTE | 2017-06-17 21:28 | NUR ---
RECEIVED CALL BACK FROM DR. Lucero HUANG. MADE AWARE THAT PT VOMITED WHEN SHE TOOK THE MEDS. DR. Lucero HUANG ORDERED LABETALOL 10 MG IVP Q6H PRN FOR SBP>150 AND DBP>100.
[2017-06-17] MEDS ORDERED: LABETALOL 100 MG/20 ML VIAL IV PRN ×2 (22:00→22:20)
[2017-06-17] MEDS ORDERED: LEVOFLOXACIN 500 MG/D5W PREMIX 100 ML IV SCH (23:00)
--- NOTE | 2017-06-17 23:15 | NUR ---
PT LYING IN BED. NO C/O PAIN OR NAUSEA AND VOMITING. PT'S MOM AT BEDSIDE. PT'S STATED THAT SHE FEELS BETTER WHEN HER MOM IS AT HER SIDE. ALL NEEDS MET AT THIS TIME. CALL LIGHT WITHIN REACH.
[2017-06-18] VITALS: BP 148/84
[2017-06-18] MEDS: ONDANSETRON 4 MG/2 ML VIAL IVP PRN ×2 (02:00→06:17)
[2017-06-18] MEDS: HYDROmorphone PFS 2 MG/ML SYR IVP PRN ×2 (02:27→08:35)
--- NOTE | 2017-06-18 02:30 | NUR ---
PT C/O SHOULDER PAIN 8/10 PAIN SCALE. DILAUDID 1 MG ADMINISTERED. NO C/O SOB. CALL LIGHT WITHIN REACH.
[2017-06-18] MEDS: DEXT 5% /NACL 0.9% 1,000 ML IV SCH (06:00)
--- NOTE | 2017-06-18 06:20 | NUR ---
PT C/O VOMITING WITH STREAKS OF BLOOD. ZOFRAN GIVEN. NO RESP DISTRESS NOTED. PAGED DR. HUANG. WAITING FOR CALL BACK.
[2017-06-18] MEDS ORDERED: ALENDRONATE 10 MG TAB PO SCH (06:30)
[2017-06-18 06:49] VITALS: BP 145/80
--- NOTE | 2017-06-18 07:05 | NUR ---
STILL WAITING FOR DR. HUANG'S CALL BACK. ENDORSED PT TO DAY SHIFT NURSE. PT IN STABLE CONDITION.
[2017-06-18 08:00] VITALS: BP 158/92
[2017-06-18] MEDS: SEVELAMER CARBONATE 800 MG TAB PO SCH (08:00)
[2017-06-18] MEDS: CALCIUM ACETATE 667 MG TAB PO SCH (08:00)
[2017-06-18] MEDS: amLODIPine 5 MG TAB PO SCH (09:00)
[2017-06-18] MEDS: cloNIDine 0.1 MG TAB PO SCH (09:00)
[2017-06-18] MEDS: LACTOBACILLUS RHAMNOSUS GG 1 EACH CAP PO SCH (09:00)
[2017-06-18] MEDS: LACTULOSE 20 GM/30 ML UDC PO SCH (09:00)
[2017-06-18] MEDS ORDERED: CALCITRIOL 0.25 MCG CAPLF PO SCH (09:00)
[2017-06-18] MEDS ORDERED: VIT-B COMP/VIT-C/FOLIC ACID 1 TAB PO SCH (09:00)
[2017-06-18] MEDS: CINACALCET 30 MG TAB PO SCH (09:00)
[2017-06-18] MEDS ORDERED: PANTOPRAZOLE 40 MG INJ VIAL IVP SCH (09:00)
[2017-06-18] MEDS ORDERED: EPOETIN ALFA 10,000 UNITS/ML VIAL SUBQ SCH (09:00)
[2017-06-18] MEDS: METOPROLOL 50 MG TAB PO SCH (09:00)
--- NOTE | 2017-06-18 09:00 | NUR ---
PATIENT LYING DOWN IN BED SLEEPING, AROUSABLE BY VOICE. PAIN WITHIN TOLERABLE AT THIS TIME. SCHEDULED MEDICATIONS NOT GIVEN DUE TO PATIENT NOT ABLE TO TOLERATE ANYTHING VIA ORALLY DUE TO VOMITING IF SHE DOES. WILL NOTIFY DR. HUANG.
[2017-06-18] MEDS ORDERED: fentaNYL 0.05 MG/ML VIAL ONE (09:31)
[2017-06-18] MEDS ORDERED: MIDAZOLAM 2 MG/2 ML VIAL ONE (09:31)
[2017-06-18] MEDS ORDERED: diphenhydrAMINE 50 MG/ML VIAL ONE (09:32)
--- NOTE | 2017-06-18 10:00 | NUR ---
PATIENT LYING IN BED WATCHING TV. NO DISTRESS NOTED. PAIN WITHIN TOLERABLE. CONTINUES TO HAVE INTERMITTENT VOMITING. OR NURSE BANDAR AT BESIDE REINFORCING EGD PROCEDURE TO PATIENT. PATIENT VERBALIZED UNDERSTANDING. PER OR NURSE, HOLD LABETALOL PRN MEDICATION FOR HIGH BP DUE TO EGD PROCEDURE. OR NURSE TO GIVE IF NEEDED DURING PROCEDURE. GAVE REPORT OR NURSE PORTILLO AND ANSWERED ALL OF HER QUESTIONS. WILL CONTINUE TO MONITOR.
--- NOTE | 2017-06-18 10:34 | NUR ---
DR. HINTON AT BEDSIDE REVIEWING PLAN OF CARE WITH PATIENT. PATIENT FUSTRATED AND ANGRY BECAUSE THE "[facility]OSP[facility] DID NOT DO ANYTHING WITH ME THIS WEEKEND. THEY TREAT ME LIKE AN ANIMAL, JUST SAYING WHAT THEY THINK IS WRONG WITH ME BUT NOT DOING ANYTHING THE WHOLE WEEKEND". DR. HINTON TRYING TO EXPLAIN TO PATIENT THAT IT WAS A RADIOLOGY PROBLEM OF NOBODY WANTING TO DO THE ESOPHAGEAL XRAY DURING WEEKEND. PATIENT WISHES TO LEAVE AMA DESPITE RISKS ASSOCIATED WITH LEAVING AMA EXPLAINED BY MD. PATIENT VERBALIZED UNDERSTANDING AND WISHES TO CONTINUE TO LEAVE AMA. AMA CONSENT SIGNED. IV SITE REMOVED WITH MINIMAL BLOOD AND LUMEN COMPLETELY INTACT. ID BANDS REMOVED. AWAITING FOR PATIENT TO GET DRESSED. WILL CONTINUE TO MONITOR.
--- NOTE | 2017-06-18 11:15 | NUR ---
PATIENT ALL DRESSED UP, ALL BELONGINGS WITH PATIENT. MOTHER AT BEDSIDE. PATIENT ESCORTED DOWN VIA WHEELCHAIR. PATIENT LEFT AMA AT THIS TIME IN STABLE CONDITION.
--- NOTE | 2017-06-18 13:41 | NUR ---
DESIGNER ARCHITECT note 1340. DESIGNER ARCHITECT received order for Modified Barium Swallow Study (MBSS); however, before DESIGNER ARCHITECT able to arrive to provide MBSS, pt left hospital AMLucero GARCIA.
[2017-06-19] MEDS ORDERED: LEVOFLOXACIN 500 MG/D5W PREMIX 100 ML IV SCH (21:00)
== END 2017-06-18 11:15 | disposition left against medical advice (07) | DRG 720 ==
LOC: MED 17:26 → MTU 23:05
PROVIDERS: ADMIT Preventive Medicine Preventive Medicine/Occupational Environmental Medicine; ATTEND Preventive Medicine Preventive Medicine/Occupational Environmental Medicine
DX: A41.9 Sepsis, unspecified organism (principal); J96.00 Acute respiratory failure, unspecified whether with hypoxia or hypercapnia; E43 Unspecified severe protein-calorie malnutrition; J90 Pleural effusion, not elsewhere classified; J18.9 Pneumonia, unspecified organism; N18.6 End stage renal disease; N25.0 Renal osteodystrophy; I12.0 Hypertensive chronic kidney disease with stage 5 chronic kidney disease or end stage renal disease; C50.919 Malignant neoplasm of unspecified site of unspecified female breast; E88.09 Other disorders of plasma-protein metabolism, not elsewhere classified; R13.10 Dysphagia, unspecified; C73 Malignant neoplasm of thyroid gland; J45.909 Unspecified asthma, uncomplicated; J98.11 Atelectasis; K59.00 Constipation, unspecified; D16.9 Benign neoplasm of bone and articular cartilage, unspecified; Z99.2 Dependence on renal dialysis; Z53.21 Procedure and treatment not carried out due to patient leaving prior to being seen by health care provider; E21.3 Hyperparathyroidism, unspecified; D64.9 Anemia, unspecified; Z98.891 History of uterine scar from previous surgery; Z88.0 Allergy status to penicillin; Z79.01 Long term (current) use of anticoagulants; Z88.6 Allergy status to analgesic agent; Z68.20 Body mass index [BMI] 20.0-20.9, adult
CPT/HCPCS: 36415; 74022; 80048; 80053; 80202; 83605; 83690; 83880; 84100; 84484; 85025; 85610; 85651; 85730; 86140; 87040; 87081; 93005; 96365; 96375; 97799; 99285; J1170; J1200; J1450; J1956; J2250; J2405; J3010; J7042; S0119

== ENCOUNTER 2017-07-18 18:27 | Inpatient (IN) | payer MEDICAID ==
[~2017-07-18] VITALS: Ht 165.1 cm; Wt 57.2 kg
--- NOTE | 2017-07-18 00:35 | NUR ---
BENADRYL AND VALIUM CARPUJECT GIVEN PER ORDER. PT TOLERATED WELL. QUICKLY WAS RELAXED AND FELL ASLEEP. WILL CONTINUE TO MONITOR.
[2017-07-18 19:03] VITALS: BP 194/86
--- NOTE | 2017-07-18 19:15 | NUR ---
CAME IN, C/O 01/16 WORSENING X1 DAY R LOWER CHEST PRESSURE/BURNING PAIN WHERE PREVIOUS CHEST TUBE WAS INSERTED X3 WEEKS AGO FROM [facility]. NONRADIATING, EXACERBATED BY DEEP BREATHS. PT REPORTS TAKING NORCO WITH LITTLE RELIEF. L AV FISTULA NOTED. PT DENIES FEVER, N/V/D. HX ESRD, HTN. ALLERGY TO PCN AND MORPHINE. TON MOORE AWARE. Addendum: 07/18/17 at 2116 by MARKEL LAST DIALYSIS YESTERDAY, 4L OUT
--- NOTE | 2017-07-18 19:28 | NUR ---
Dr. Tran evaluating patient at bedside.
[2017-07-18] MEDS ORDERED: LORazepam 2 MG/ML VIAL IVP ONE (19:50)
[2017-07-18] MEDS ORDERED: ONDANSETRON 4 MG/2 ML VIAL IVP ONE (19:50)
[2017-07-18] MEDS ORDERED: fentaNYL 0.05 MG/ML VIAL IVP ONE (19:50)
[2017-07-18 20:11] LABS: BASOPHILS % (AUTO) 0.5 % (0.0-2.0); EOSINOPHILS % (AUTO) 0.8 % (0.0-4.0); LYMPHOCYTES # (AUTO) 0.9 K/uL (2.5-16.5); LYMPHOCYTES % (AUTO) 17.9 % (20.5-51.1); MEAN CORPUSCULAR HEMOGLOBIN 31 pg (27-31); MEAN CORPUSCULAR HGB CONC 33 g/dL (33-37); MEAN CORPUSCULAR VOLUME 93.5 fL (80-94); MONOCYTES # (AUTO) 0.4 K/uL (0.8-1.0); MONOCYTES % (AUTO) 8.2 % (1.7-9.3); NEUTROPHILS # (AUTO) 3.8 K/uL (1.8-7.7); NEUTROPHILS % (AUTO) 72.6 % (42.2-75.2); PLATELET COUNT (AUTO) 253 K/uL (140-450); RED BLOOD CELL COUNT(AUTO) 2.21 MIL/uL (4.20-5.40); RED CELL DISTRIBUTION WIDTH 17.1 % (11.6-13.7); WHITE BLOOD COUNT (AUTO) 5.2 K/uL (4.8-10.8)
[2017-07-18 20:22] LABS: HEMATOCRIT 20.6 % (36-48); HEMOGLOBIN 6.8 g/dL (12.0-16.0)
[2017-07-18 20:25] LABS: ANION GAP 16.8 (8-16); CARBON DIOXIDE 31.5 mmol/L (21-32); POTASSIUM 4.3 mmol/L (3.5-5.1)
[2017-07-18 20:27] LABS: PROTHROMBIN TIME 11.6 secs (10.8-13.4)
[2017-07-18 20:30] LABS: ALBUMIN 2.7 g/dL (3.4-5.0); CREATININE 5.6 mg/dL (0.6-1.3); TOTAL BILIRUBIN 0.3 mg/dL (0.0-1.0)
--- NOTE | 2017-07-18 21:10 | NUR ---
Patient appears to be resting comfortably in bed. Respirations even and unlabored.
[2017-07-18] MEDS ORDERED: hydrALAZINE 20 MG/ML VIAL IVP ONE (21:20)
[2017-07-18] MEDS ORDERED: HYDROcodone/APAP 7.5/325 MG 1 TAB PO PRN (22:00)
[2017-07-18] MEDS ORDERED: ACETAMINOPHEN 325 MG TAB PO PRN (22:00)
[2017-07-18] MEDS ORDERED: HYDROmorphone 2 MG TAB PO PRN (22:05)
--- NOTE | 2017-07-18 22:05 | NUR ---
Patient will be admitted to care of [facility]. Admited to TELE. Will go to room 124B. Belongings list completed. Report to DOMINIC ROSE AT BEDSIDE.
--- NOTE | 2017-07-18 22:05 | NUR ---
RECEIVED PT VIA GURNEY BY ER NURSE CARA-DOMINIC. AOX4. AMBULATORY WITH ASSIST. SPOUSE AT BEDSIDE. IV RIGHT FA #22G. LEFT ARM RESTRICTED DUE TO SHUNT ON FA. SIGN POSTED. ON 2L/NC NEEDED. PT IN SEVERE PAIN ON RIGHT CHEST/LUNG DUE TO CHEST TUBE REMOVAL 2 WEEKS AGO. HAS BEEN TAKING NORCO AT HOME NEEDED FOR PAIN HOWEVER PAIN HAS NOT BEEN DECREASING AND HER PCP ADVISED HER TO GO TO HER NEAREST ER. PT WAS GIVEN DILAUDID IV IN ER. DILAUDID PO NOT HELPFUL. SHE IS REQUESTING DILAUDID OR FENTANYL. HR ALSO HIGH IN ER. HX OF HTN. BED IN LOWEST POSITION. BED SIDE TABLE AND CALL LIGHT WITHIN REACH. WILL CONTINUE TO MONITOR.
[2017-07-18] MEDS ORDERED: NIFE30TE8 PO ×2 (22:17→22:50)
[2017-07-18] MEDS ORDERED: VAS5 PO (22:17)
[2017-07-18] MEDS ORDERED: HYDR100T79 PO ×2 (22:17→22:50)
[2017-07-18] MEDS ORDERED: IBUP-1842 PO (22:17)
[2017-07-18] MEDS ORDERED: ACYC200C4 PO ×2 (22:17→22:50)
[2017-07-18] MEDS ORDERED: FLUC100T PO (22:17)
[2017-07-18] MEDS ORDERED: ROC.25 PO ×2 (22:17→22:51)
[2017-07-18] MEDS ORDERED: WARF2.5T77 PO ×2 (22:17→22:53)
[2017-07-18] MEDS: METOPROLOL 50 MG TAB PO SCH (22:30)
[2017-07-18] MEDS ORDERED: WARFARIN 2.5 MG TAB PO SCH (22:30)
[2017-07-18] MEDS: hydrALAZINE 10 MG TAB PO SCH (22:30)
[2017-07-18] MEDS: cloNIDine-TTS2 0.2 MG/24 HR 1 EA PATCH TD SCH (22:30)
[2017-07-18 22:40] LABS: FREE T4 (FREE THYROXINE) 0.81 ng/dL (0.76-1.46); MAGNESIUM 2.3 mg/dL (1.8-2.4); PHOSPHORUS 6.7 mg/dL (2.5-4.9); THYROID STIMULATING HORMONE 8.42 uIU/mL (0.34-3.74)
[2017-07-18] MEDS ORDERED: BENA20TA PO (22:52)
[2017-07-18] MEDS ORDERED: PHO667 PO (22:55)
[2017-07-18] MEDS ORDERED: PANT40EC PO (22:55)
[2017-07-18] MEDS ORDERED: SEN30 PO (22:55)
[2017-07-18] MEDS ORDERED: VITD1000 PO (22:55)
[2017-07-18] MEDS ORDERED: METOPROLOL 50 MG TAB ONE (23:41)
[2017-07-18] MEDS: CYCLOBENZAPRINE 10 MG TAB PO PRN (23:51)
[2017-07-19] MEDS ORDERED: LORazepam 2 MG/ML VIAL IM/IVP PRN
[2017-07-19] MEDS ORDERED: DIAZEPAM PFS 10 MG/2 ML SYR IVP ONE (00:35)
[2017-07-19] MEDS ORDERED: diphenhydrAMINE 50 MG/ML VIAL IVP ONE ×2 (00:35→21:55)
[2017-07-19] MEDS ORDERED: KETOROLAC 30 MG/ML VIAL IM ONE (00:40)
[2017-07-19] MEDS ORDERED: DIAZEPAM PFS 10 MG/2 ML SYR ONE (01:01)
--- NOTE | 2017-07-19 02:00 | NUR ---
PT CONTINUES TO SLEEP. WILL CONTINUE TO MONITOR.
[2017-07-19] MEDS: NACL 0.9% 1,000 ML IV SCH ×2 (03:25→16:56)
[2017-07-19 04:00] VITALS: BP 169/97
--- NOTE | 2017-07-19 04:00 | NUR ---
PT CONTINUES TO SLEEP. WILL CONTINUE TO MONITOR.
--- NOTE | 2017-07-19 06:00 | NUR ---
PT CONTINUES TO SLEEP. WILL CONTINUE TO MONITOR.
[2017-07-19 06:51] LABS: PROTHROMBIN TIME 11.9 secs (10.8-13.4)
[2017-07-19 07:05] LABS: ANION GAP 18.4 (8-16); POTASSIUM 4.4 mmol/L (3.5-5.1)
--- NOTE | 2017-07-19 07:05 | NUR ---
ENDORSED PT CARE TO DAY SHIFT NURSE JENNY. PT IN STABLE CONDITION AT THIS TIME. Addendum: 07/19/17 at 0749 by Neela Bravo RN ERROR. DAY SHIFT NURSE CHRISTIE
--- NOTE | 2017-07-19 07:06 | NUR ---
RECEIVED REPORT FROM SENIOR SAFETY MANAGEMENT CONSULTANT NURSE AT BEDSIDE FOR CONTINUITY OF CARE. INTRODUCED MYSELF AND UPDATED THE BOARD. PER PT, C/O OF PAIN 10/10 IN HER R RIB AREA. S/P CHEST TUBE INSERTION 2 WEEKS AGO. SHE HAS BEEN PAIN EVER SINCE. PT HAS A SHUNT IN HER L ARM FOR HD, , , SAT. DR LAL ON CONSULT. WILL PROBABLY GET HER HD TODAY. WILL GET CONSENT. PT ALSO HAS AN IV ON R FA 22G NS AT 80ML INFUSING. PT HAS A LARGE BUMP ON HER L CHEST AND HER L ANKLE. SKIN IS INTACT. NC 2L O2 PRN. SHE IS CURRENTLY ON ROOM AIR. LBM IS 4/11. PER SENIOR SAFETY MANAGEMENT CONSULTANT NURSE, ONLY PAIN RELIEF SHE RECEIVED WAS FROM BENADRYL AND VALIUM COMBINATION WHICH SHE RECEIVED WHEN SHE ARRIVED. IT IS CURRENTLY D/C'D. WILL TALK TO MD ABOUT NEW ORDER. WILL CONTINUE TO MONITOR PT.
[2017-07-19 07:15] LABS: MAGNESIUM 2.2 mg/dL (1.8-2.4)
--- NOTE | 2017-07-19 07:40 | NUR ---
BP IS VERY HIGH 194/99. PAIN 10. REQUESTING MEDS. MD IS NOW DOING ROUNDS. ASKED MD ABOUT THE MEDICATION ORDER. PER MD, HE WILL SEE PT FIRST AND THEN DECIDE. WILL CONTINUE TO MONITOR PT.
[2017-07-19 07:48] LABS: BASOPHILS % (AUTO) 0.6 % (0.0-2.0); EOSINOPHILS % (AUTO) 0.6 % (0.0-4.0); LYMPHOCYTES % (AUTO) 18.8 % (20.5-51.1); MEAN CORPUSCULAR HEMOGLOBIN 31 pg (27-31); MEAN CORPUSCULAR HGB CONC 33 g/dL (33-37); MEAN CORPUSCULAR VOLUME 94.2 fL (80-94); MONOCYTES # (AUTO) 0.3 K/uL (0.8-1.0); MONOCYTES % (AUTO) 6.2 % (1.7-9.3); NEUTROPHILS % (AUTO) 73.8 % (42.2-75.2); PLATELET COUNT (AUTO) 222 K/uL (140-450); RED BLOOD CELL COUNT(AUTO) 2.01 MIL/uL (4.20-5.40)
[2017-07-19 08:00] VITALS: BP 194/99
[2017-07-19 08:27] LABS: CREATININE 6.2 mg/dL (0.6-1.3)
[2017-07-19] MEDS: SEVELAMER CARBONATE 800 MG TAB PO SCH ×3 (08:42→16:56)
[2017-07-19] MEDS: CALCIUM ACETATE 667 MG TAB PO SCH ×3 (08:42→16:56)
[2017-07-19] MEDS: ACYCLOVIR 200 MG CAP PO SCH ×2 (08:43→21:06)
[2017-07-19] MEDS: PANTOPRAZOLE 40 MG TABEC PO SCH ×2 (08:43→21:07)
[2017-07-19] MEDS: CALCITRIOL 0.25 MCG CAPLF PO SCH (08:43)
[2017-07-19] MEDS: VIT-B COMP/VIT-C/FOLIC ACID 1 TAB PO SCH (08:43)
[2017-07-19] MEDS: LACTOBACILLUS RHAMNOSUS GG 1 EACH CAP PO SCH (08:43)
--- NOTE | 2017-07-19 08:45 | NUR ---
PATIENT HAS BEEN SCREENED AND CATEGORIZED MODERATE NUTRITION RISK. PATIENT WILL BE SEEN WITHIN 3-5 DAYS OF ADMISSION. 07/21/17 - 07/23/[address]
[2017-07-19] MEDS: oxyCODONE 10 MG TABER PO PRN (08:52)
[2017-07-19] MEDS: CYCLOBENZAPRINE 10 MG TAB PO PRN (08:52)
[2017-07-19] MEDS: CINACALCET 30 MG TAB PO SCH (08:55)
[2017-07-19] MEDS: DOCUSATE SODIUM 100 MG GELCAP PO SCH ×2 (09:00→21:06)
[2017-07-19] MEDS ORDERED: BENAZEPRIL 5 MG TAB PO SCH (09:00)
[2017-07-19] MEDS: METOPROLOL 50 MG TAB PO SCH ×2 (09:00→21:06)
[2017-07-19] MEDS ORDERED: LEVOFLOXACIN 750 MG/D5W PREMIX 150 ML IV ONE ×2 (09:00)
[2017-07-19] MEDS: hydrALAZINE 10 MG TAB PO SCH ×3 (09:00→16:58)
[2017-07-19] MEDS: cloNIDine-TTS2 0.2 MG/24 HR 1 EA PATCH TD SCH (09:00)
[2017-07-19] MEDS: NIFEdipine 30 MG TABER PO SCH ×2 (09:00→21:07)
[2017-07-19] MEDS ORDERED: VITAMIN D 400 IU TAB PO SCH (09:00)
--- NOTE | 2017-07-19 09:01 | NUR ---
ADMINISTERED MORNING MEDS. PT WAS UPSET ABOUT NOT GETTING HER BENADRYL AND VALIUM. EVEN REQUESTED TO SEE THE DR. DR MENEZES EXPLAINED TO PT THAT WE WILL TRY OTHER MEDS. GAVE OXYCOTIN AND FLEXERIL. PT TOLERATED WELL. NOW EATING BREAKFAST. WILL CONTINUE TO MONITOR PT.
[2017-07-19] MEDS: CHOLECALCIFEROL 1,000 IU TAB PO SCH (09:13)
--- NOTE | 2017-07-19 09:34 | NUR ---
DIALYSIS NURSE IS HERE. SHE IS DIALYZING ANOTHER PT. ONCE SHE IS DONE, SHE WILL START ON THIS PT. SOFTWARE ARCHITECT CALLED DR. COPELAND AND GOT ORDERS FOR HD. RECEIVED CONSENT FOR HD AND BLOOD TRANSFUSION. IN CHART.
[2017-07-19 09:45] LABS: HEMOGLOBIN 6.2 g/dL (12.0-16.0); WHITE BLOOD COUNT (AUTO) 5.4 K/uL (4.8-10.8)
[2017-07-19] MEDS: ONDANSETRON 4 MG/2 ML VIAL IVP PRN ×2 (10:54→13:56)
--- NOTE | 2017-07-19 10:54 | NUR ---
PT C/O BEING HOT. SHE STARTED GETTING NAUSEATED AND STARTED VOMITING. WILL GIVE ZOFRAN. U/S TECH IS HERE FOR US OF CHEST.
--- NOTE | 2017-07-19 11:30 | NUR ---
PT CONTINUES TO C/O BEING HOT. NAUSEA IS BETTER. NO FEVER. DIALYSIS NURSE JUST STARTING TO SET UP FOR DIALYSIS AND BLOOD TRANSFUSION. WILL CONTINUE TO MONITOR PT.
--- NOTE | 2017-07-19 11:40 | NUR ---
CM NOTE INITIAL REVIEW DONE
[2017-07-19 12:00] VITALS: BP 202/113
--- NOTE | 2017-07-19 13:00 | NUR ---
PT GETTING DIALYSIS. STARTED THE BLOOD TRANSFUSION. PT TOLERATING WELL.
--- NOTE | 2017-07-19 13:45 | NUR ---
PT FINISHED THE BLOOD TRANSFUSION DURING DIALYSIS WITH DIALYSIS NURSE. PT TOLERATED WELL. NO REACTIONS. DIALYSIS NURSE AT BEDSIDE.
--- NOTE | 2017-07-19 14:00 | NUR ---
PATIENT HAD EMESIS X1. BP 202/102. DR. MENEZES WAS MADE AWARE. ZOFRAN WAS GIVEN PER ORDER. PRIMARY NURSE FRED WAS INFORMED.
[2017-07-19] MEDS ORDERED: cloNIDine 0.1 MG TAB PO SCH ×4 (14:26→21:00)
--- NOTE | 2017-07-19 14:40 | NUR ---
ADMINISTERED CLONIDINE PATCH ON L CHEST PER MD. PT BP 193/99. PT SLEEPING. FINISHING UP DIALYSIS. MUD WORKER AT BEDSIDE WILL CONTINUE TO MONITOR PT.
--- NOTE | 2017-07-19 15:11 | NUR ---
PER MD, REMOVE THE CLONIDINE PATCH. GAVE THE ORAL EARLIER. WILL CONTINUE TO MONITOR PT.
[2017-07-19] MEDS ORDERED: diphenhydrAMINE 50 MG/ML VIAL IVP SCH (15:18)
[2017-07-19] MEDS ORDERED: DIAZEPAM 2 MG TAB PO SCH (15:32)
--- NOTE | 2017-07-19 15:51 | NUR ---
ADMINISTERED VALIUM AND BENADRYL. PT TOLERATED WELL. NO COMPLAINTS AT THIS TIME. WILL CONTINUE TO MONITOR PT.
[2017-07-19 16:00] VITALS: BP 196/99
[2017-07-19] MEDS ORDERED: WARFARIN 5 MG TAB PO SCH (17:00)
--- NOTE | 2017-07-19 17:03 | NUR ---
ADMINISTERED SCHEDULED MEDS. PT TOLERATED WELL. FAMILY IS VISITING. PER PT PAIN LEVEL IS MUCH BETTER. WILL CONTINUE TO MONITOR PT.
--- NOTE | 2017-07-19 18:20 | NUR ---
PT BP STILL HIGH. SPOKE TO DR. JACKSON RE HER HYPERTENSION ALL DAY. WILL PUT IN NEW ORDERS.
--- NOTE | 2017-07-19 18:46 | NUR ---
ADMINISTERED CLONIDINE 0.3MG. PT TOLERATED WELL. WILL ENDORSE REASSESSMENT TO MANAGER DELI NURSE.
--- NOTE | 2017-07-19 19:30 | NUR ---
RECEIVED BEDSIDE REPORT FROM DAY SHIFT NURSE FRED RN, PT STABLE, NO DISTRESS NOTED, IV TO R FA 22G RUNNING NS @ 80ML/HR, INFUSING WELL, PT ON ROOM AIR NO SOB, FAMILY BY BEDSIDE, INITIAL ASSESSMENT DONE, ALL SAFETY PRECAUTION MET,WILL CONTINUE TO MONITOR.
[2017-07-19 20:00] VITALS: BP 162/79
[2017-07-19 20:36] LABS: BASOPHILS % (AUTO) 0.4 % (0.0-2.0); EOSINOPHILS % (AUTO) 0.6 % (0.0-4.0); HEMATOCRIT 22.5 % (36-48); HEMOGLOBIN 7.6 g/dL (12.0-16.0); LYMPHOCYTES # (AUTO) 0.8 K/uL (2.5-16.5); LYMPHOCYTES % (AUTO) 14.8 % (20.5-51.1); MEAN CORPUSCULAR HEMOGLOBIN 31 pg (27-31); MEAN CORPUSCULAR HGB CONC 34 g/dL (33-37); MEAN CORPUSCULAR VOLUME 92.1 fL (80-94); MONOCYTES # (AUTO) 0.6 K/uL (0.8-1.0); MONOCYTES % (AUTO) 9.7 % (1.7-9.3); NEUTROPHILS # (AUTO) 4.3 K/uL (1.8-7.7); NEUTROPHILS % (AUTO) 74.5 % (42.2-75.2); PLATELET COUNT (AUTO) 227 K/uL (140-450); RED BLOOD CELL COUNT(AUTO) 2.44 MIL/uL (4.20-5.40); RED CELL DISTRIBUTION WIDTH 17.3 % (11.6-13.7); WHITE BLOOD COUNT (AUTO) 5.7 K/uL (4.8-10.8)
--- NOTE | 2017-07-19 21:07 | NUR ---
DUE MEDICATION ADMINISTERED, PT TOLERATED WELL, NO DISTRESS NOTED, CALL LIGHT WITHIN REACH, WILL CONTINUE TO MONITOR.
[2017-07-20] VITALS (8 sets, daily range): BP systolic 141–181; BP diastolic 76–92
[2017-07-20] MEDS: cloNIDine 0.1 MG TAB PO SCH ×5 (00:27→17:13)
--- NOTE | 2017-07-20 00:27 | NUR ---
DUE MEDICATION GIVEN, PT TOLERATED WELL, PT BP 162/82 HR 60, PT SLEEPING, NO DISTRESS NOTED, CALL LIGHT WITHIN REACH, WILL CONTINUE TO MONITOR.
[2017-07-20] MEDS ORDERED: hydrALAZINE 20 MG/ML VIAL IVP ONE (01:20)
--- NOTE | 2017-07-20 01:27 | NUR ---
RECHECKED PT BP, PT BP CURRENTLY 181/92, HR 59, NOTIFIED DR. JACKSON, STATED UNDERSTANDING AND SHE WILL ORDER HYDRALAZINE FOR NOW, WILL ADMINISTER TO PT WHEN ORDER GOES THROUGH.
--- NOTE | 2017-07-20 01:35 | NUR ---
HYDRALAZINE GIVEN, PT TOLERATED WELL, NO DISTRESS NOTED, CALL LIGHT WITHIN REACH, WILL CONTINUE TO MONITOR.
--- NOTE | 2017-07-20 05:51 | NUR ---
DUE MEDICATION ADMINISTERED, PT C/O PAIN, PAIN MEDICATION GIVEN, PT TOLERATED WELL, NO DISTRESS NOTED, CALL LIGHT WITHIN REACH, WILL CONTINUE TO MONITOR.
[2017-07-20] MEDS: oxyCODONE 10 MG TABER PO PRN ×2 (05:52→12:28)
[2017-07-20] MEDS: CYCLOBENZAPRINE 10 MG TAB PO PRN ×2 (05:52→12:27)
[2017-07-20 06:08] LABS: BASOPHILS % (AUTO) 0.6 % (0.0-2.0); EOSINOPHILS % (AUTO) 0.7 % (0.0-4.0); HEMATOCRIT 24.5 % (36-48); LYMPHOCYTES % (AUTO) 18.1 % (20.5-51.1); MEAN CORPUSCULAR HEMOGLOBIN 30 pg (27-31); MEAN CORPUSCULAR HGB CONC 33 g/dL (33-37); MEAN CORPUSCULAR VOLUME 92.4 fL (80-94); MONOCYTES # (AUTO) 0.5 K/uL (0.8-1.0); MONOCYTES % (AUTO) 9.7 % (1.7-9.3); NEUTROPHILS % (AUTO) 70.9 % (42.2-75.2); PLATELET COUNT (AUTO) 222 K/uL (140-450); RED BLOOD CELL COUNT(AUTO) 2.66 MIL/uL (4.20-5.40); RED CELL DISTRIBUTION WIDTH 17.5 % (11.6-13.7); WHITE BLOOD COUNT (AUTO) 5.6 K/uL (4.8-10.8)
[2017-07-20 06:25] LABS: MAGNESIUM 2.1 mg/dL (1.8-2.4); PHOSPHORUS 5.5 mg/dL (2.5-4.9)
[2017-07-20] MEDS ORDERED: LEVOTHYROXINE 0.05 MG TAB PO SCH (06:30)
[2017-07-20 06:46] LABS: ANION GAP 15.9 (8-16); CARBON DIOXIDE 27.9 mmol/L (21-32); POTASSIUM 3.8 mmol/L (3.5-5.1)
[2017-07-20 06:47] LABS: CREATININE 4.2 mg/dL (0.6-1.3)
[2017-07-20 07:12] LABS: PROTHROMBIN TIME 11.8 secs (10.8-13.4)
--- NOTE | 2017-07-20 07:25 | NUR ---
ENDORSED PLAN OF CARE TO DAY SHIFT NURSE FRED RN, PT STABLE, NO DISTRESS NOTED, CALL LIGHT WITHIN REACH.
--- NOTE | 2017-07-20 07:26 | NUR ---
RECEIVED REPORT FROM THE PODIATRY ASSISTANT NURSE. PT IS AWAKE AND ORIENTED, SITTING UP IN BED, WATCHING TV. INTRODUCED MYSELF AND UPDATED THE BOARD. V/S IS BETTER. BP 141/78. STATES PAIN IS BETTER, 10/16. IV ON R FA 22G SL. DISCONNECTED HER FROM THE IV PUMP. L ARM HD SHUNT. BUMP ON L CHEST AND L ANKLE, OTHERWISE SKIN IS INTACT. LABS ARE BETTER TODAY. H/H IS UP FROM YESTERDAY; BUN/CREAT IS DOWN FROM YESTERDAY. WILL CONTINUE TO MONITOR PT.
[2017-07-20] MEDS ORDERED: CALCIUM ACETATE 667 MG TAB PO SCH (08:00)
[2017-07-20] MEDS ORDERED: BENAZEPRIL 5 MG TAB PO SCH (09:00)
[2017-07-20] MEDS ORDERED: VIT-B COMP/VIT-C/FOLIC ACID 1 TAB PO SCH (09:00)
[2017-07-20] MEDS ORDERED: LEVOFLOXACIN 500 MG/D5W PREMIX 100 ML IV SCH (09:00)
[2017-07-20] MEDS ORDERED: hydrALAZINE 10 MG TAB PO SCH (09:00)
[2017-07-20] MEDS: CINACALCET 30 MG TAB PO SCH (09:03)
[2017-07-20] MEDS: CALCITRIOL 0.25 MCG CAPLF PO SCH (09:04)
[2017-07-20] MEDS: SEVELAMER CARBONATE 800 MG TAB PO SCH ×3 (09:04→17:12)
[2017-07-20] MEDS: VIT-B COMP/VIT-C/FOLIC ACID 1 TAB PO SCH (09:05)
[2017-07-20] MEDS: PANTOPRAZOLE 40 MG TABEC PO SCH (09:05)
[2017-07-20] MEDS: LACTOBACILLUS RHAMNOSUS GG 1 EACH CAP PO SCH (09:05)
[2017-07-20] MEDS: ACYCLOVIR 200 MG CAP PO SCH (09:05)
[2017-07-20] MEDS: NIFEdipine 30 MG TABER PO SCH (09:06)
[2017-07-20] MEDS: METOPROLOL 50 MG TAB PO SCH (09:06)
[2017-07-20] MEDS: DOCUSATE SODIUM 100 MG GELCAP PO SCH (09:07)
[2017-07-20] MEDS: CALCIUM ACETATE 667 MG TAB PO SCH ×3 (09:07→17:13)
[2017-07-20] MEDS: CHOLECALCIFEROL 1,000 IU TAB PO SCH (09:10)
--- NOTE | 2017-07-20 09:20 | NUR ---
ADMINISTERED MORNING MEDS. PT TOLERATED WELL. ATE BREAKFAST WELL - 90%. WILL CONTINUE TO MONITOR PT.
[2017-07-20] MEDS ORDERED: hydrALAZINE 25 MG TAB PO SCH (12:22)
[2017-07-20] MEDS: hydrALAZINE 25 MG TAB PO SCH ×2 (12:29→17:14)
--- NOTE | 2017-07-20 12:30 | NUR ---
PT C/O PAIN. REQUESTED SOME PAIN MED. ADMINISTERED OXYCODONE AND FLEXERIL AND SCHEDULED MEDS. PT TOLERATED WELL. WILL CONTINUE TO MONITOR PT.
[2017-07-20] MEDS ORDERED: ACET-2863 PO (13:29)
[2017-07-20] MEDS ORDERED: DOCU-299 PO (13:29)
[2017-07-20] MEDS ORDERED: LORazepam 1 MG TAB PO SCH (14:00)
--- NOTE | 2017-07-20 14:10 | NUR ---
ADMINISTERED ATIVAN REQUESTED. PT IS TO BE D/C'D TODAY. SPOUSE WILL BE HERE TO PICK HER UP AROUND 1730. WILL CONTINUE TO MONITOR PT. WILL START DISCHARGE PROCESS.
--- NOTE | 2017-07-20 15:31 | NUR ---
PT SLEEPING SOUNDLY. NO SIGNS OF DISTRESS. WILL CONTINUE TO MONITOR PT.
[2017-07-20] MEDS ORDERED: WARFARIN 5 MG TAB PO SCH (17:00)
--- NOTE | 2017-07-20 17:16 | NUR ---
ADMINISTERED AFTERNOON SCHEDULED MEDS. PT TOLERATED WELL. REQUESTED ANOTHER COLACE. WILL ASK
[2017-07-20] MEDS ORDERED: DOCUSATE SODIUM 100 MG GELCAP PO SCH (17:45)
--- NOTE | 2017-07-20 18:00 | NUR ---
DC INSTRUCTIONS GIVEN TO PT. PT VERBALIZED UNDERSTANDING. REMOVED IV, CANNULA INTACT. BLEEDING STOPPED BY PUTTING PRESSURE AND APPLIED PRESSURE BANDAGE. PT REMOVED TELE MONITOR AND ID BANDS. PT WILL EAT DINNER AND THEN GET DRESSED AND GATHER HER PERSONAL BELONGINGS. WAITING ON . WILL LET ME KNOW WHEN HER GETS HERE. PT WOULD LIKE THE MR THAT SHE BROUGHT BY HER FROM [facility] – [place]. RECORDS GIVEN.
--- NOTE | 2017-07-20 18:25 | NUR ---
PT WHEEL CHAIRED OUT BY QUALITY WORKER TO THE FRONT OF THE HOSPITAL. WENT AHEAD TO GET THE CAR. PERSONAL BELONGINGS WITH PT. PT IN STABLE CONDITION.
[2017-07-21] MEDS ORDERED: EPOETIN ALFA 10,000 UNITS/ML VIAL SUBQ SCH (09:00)
== END 2017-07-20 18:25 | disposition home or self-care (01) | DRG 139 ==
LOC: MED 18:27 → MTU 21:35
PROVIDERS: ADMIT Family Medicine Sports Medicine; ATTEND Family Medicine Sports Medicine
PROC: 30233N1 Transfusion of Nonautologous Red Blood Cells into Peripheral Vein, Percutaneous Approach (ICD-10-PCS; principal; 2017-07-19)
PROC: 5A1D70Z Performance of Urinary Filtration, Intermittent, Less than 6 Hours Per Day (ICD-10-PCS; 2017-07-19)
DX: J18.1 Lobar pneumonia, unspecified organism (principal); E43 Unspecified severe protein-calorie malnutrition; I50.43 Acute on chronic combined systolic (congestive) and diastolic (congestive) heart failure; N18.6 End stage renal disease; I27.82 Chronic pulmonary embolism; N25.0 Renal osteodystrophy; I16.0 Hypertensive urgency; I13.2 Hypertensive heart and chronic kidney disease with heart failure and with stage 5 chronic kidney disease, or end stage renal disease; E02 Subclinical iodine-deficiency hypothyroidism; Z99.2 Dependence on renal dialysis; E21.0 Primary hyperparathyroidism; D63.1 Anemia in chronic kidney disease; J45.909 Unspecified asthma, uncomplicated; D64.9 Anemia, unspecified; Z88.5 Allergy status to narcotic agent; Z88.0 Allergy status to penicillin; Z79.899 Other long term (current) drug therapy; Z98.891 History of uterine scar from previous surgery; Z83.3 Family history of diabetes mellitus; Z68.21 Body mass index [BMI] 21.0-21.9, adult
CPT/HCPCS: 36415; 71045; 76604; 80048; 80053; 82150; 83036; 83690; 83735; 83880; 84100; 84439; 84443; 84484; 85025; 85610; 85730; 86886; 86900; 86901; 86920; 87040; 87081; 93005; 96374; 96375; 99285; J0360; J1200; J1956; J2060; J2405; J3010; J3360; J7030; P9016; Q0092

== ENCOUNTER 2017-07-26 16:41 | Emergency (ER) | payer MEDICAID ==
[~2017-07-26] VITALS: Ht 165.1 cm; Wt 65.8 kg
[~2017-07-26 16:41] MED LIST changes: +ACET-2863 PO; +ACYC200C4 PO; -ALEN10TA PO; -AMLO5TAB4 PO; +BENA20TA PO; -CALC667T7 PO; +DOCU-299 PO; -FERR-18 PO; +HYDR100T79 PO; +IBUP-1842 PO; -IBUP-2213 PO; -LACT10CA PO; -LEVO750T2 PO; +NIFE30TE8 PO; +PANT40EC PO; +PHO667 PO; -RIVA15TA1 PO; +ROC.25 PO; -VANC1PLA15 IV; +VITD1000 PO; +WARF2.5T77 PO
--- NOTE | 2017-07-26 16:42 | NUR ---
PT TAKEN IN WHEELCHAIR TO BED 1 FOR SOB
--- NOTE | 2017-07-26 16:45 | NUR ---
PT BIB FAMILY WITH C/O OF PAIN AND SOB X 2 HOURS AGO. PT HAS HISTORY OF ESRD AND POST CHEST TUBE REMOVAL X 2 WEEKS AGO. PT TAKES DIALYSIS 3 X A WEEK AND MISSED HER APPOINTMNET DUE TO PAIN.PT STATES THAT SHE WAS GIVEN NORCO TO HELP CONTROL PAIN POST CHESST TUBE REMOVAL. PT STATES THAT NORCO IS NOT HELPING AND THAT SHE IS ALLERGIC TO MORPHINE. PT IS REQUESTING DILAUDID FOR PAIN. PT DOES HAVE HTN AND TAKES CLONIDINE METOPROLOL , HYDRALZINE AND NIFEDIPINE. B/P WAS SYSTOLIC OVER 200 PT STATES SHE TAKES THIS MEDICATION AND TOOK THIS MEDICATION THIS MORNING. PT WAS STATING AT 100 % BUT WAS STILL NOTED SOBBING ABOUT HER PAIN. PT PLACED ON N/C AND HEART MONITOR. DR MOORE INFORMED ABOUT PT CONDITION.
--- NOTE | 2017-07-26 16:47 | NUR ---
DR MOORE INFORMED ABOUT PT'S CONDITION AND THE REQUEST FOR DILAUDID OR FENTANYL FOR HER 10/10 PAIN TO RT AXILLARY AREA PAIN SECONDARY TO CHEST TUBE INSERTION 2 WEEKS AGO AT [facility].
[2017-07-26 16:48] VITALS: BP 204/110
--- NOTE | 2017-07-26 17:06 | NUR ---
PT AND HER MOTHER REQUESTING DR MONTEZ TO GIVE PAINMEDICATION. DR MOORE INFORMED AGAIN, NO ORDERS RECEIVED. CN AWARE
--- NOTE | 2017-07-26 17:31 | NUR ---
PT'S MOTHER COMES TO NURSING STATION AND REQUESTS FOR MD TO GO TO ROOM AND ASSESS PT'S PAIN. BP 186/101,P-66. NO ORDERS RECEIVED.
--- NOTE | 2017-07-26 17:50 | NUR ---
DR MOORE IN ROOM FOR EXAM, PT'S MOTHER ON PHONE WITH LIZETH GARCIA TO COMPLAIN. CN NOTIFIED.
--- NOTE | 2017-07-26 17:52 | NUR ---
SOLE SEWER HAND CALLED AND INFORMED THAT PT'S MOTHER IS REQUESTING TO [facility]KA WITH [facility]IARA SUP.
[2017-07-26] MEDS ORDERED: KETOROLAC 30 MG/ML VIAL IM STA (17:53)
--- NOTE | 2017-07-26 18:11 | NUR ---
PT REFUSED OTRADOL AND TOOK OF ALL HER LEADS. PT SPOKE TO FUNERAL ATTENDANT AND HAS AGREED TO TAKE THE ORDERD TORADOL BUT HAS REFUSED LABS AT THIS TIME.
--- NOTE | 2017-07-26 18:30 | NUR ---
PT REFUSES NORCO RX AND DISCHARGE PAPERWORK, REFUSES TO HAVE VITLAS TAKEN AGAIN. DR MONTEZ, JACINTA, AND TRIAL CONSULTANT WHO WAS IN ER NOTIFIED.
--- NOTE | 2017-07-26 18:34 | NUR ---
Patient discharged Patient alert, oriented and verbalized understanding of instructions. Ambulatory with steady gait. ID band removed. Patient advised to follow up with PMD. Rx of NORCO given,but refused. .
[2017-07-26 18:36] VITALS: BP 182/101
== END 2017-07-26 18:34 | disposition left against medical advice (07) ==
LOC: MED 16:41
DX: G89.4 Chronic pain syndrome (principal); F11.20 Opioid dependence, uncomplicated; J45.909 Unspecified asthma, uncomplicated; I10 Essential (primary) hypertension; Z88.0 Allergy status to penicillin; Z88.5 Allergy status to narcotic agent
CPT/HCPCS: 96372; 99283; J1885

== ENCOUNTER 2018-10-03 04:15 | Inpatient (IN) | payer MEDICAID, OTHER ==
[~2018-10-03] VITALS: Ht 165.1 cm; Wt 56.7 kg
[~2018-10-03 04:15] MED LIST changes: -ACET-2863 PO; +HYDR-5123 PO
[2018-10-03 04:21] VITALS: BP 210/118
--- NOTE | 2018-10-03 04:35 | NUR ---
PT TAKEN TO BED 10 VIA WHEELCHAIR BY RN. PT IN BED, SAFETY PRECAUTIONS IMPLEMENTED, ERMD AWARE OF PT STATUS.
--- NOTE | 2018-10-03 05:09 | NUR ---
PT BROUGHT TO ED FROM [facility] [place]. PT UNABLE TO OBTAIN DIALYSIS DUE TO LOW HGB LEVELS. PT STATES "HGB WAS 6.3." PT HAS CATHETER IN LEFT UPPERCHEST. 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 HOB ELEVATED, BED IN LOWEST POSITION, BEDRAIL UP X1. ERMD AT BEDSIDE.
[2018-10-03 05:24] LABS: PROTHROMBIN TIME 10.1 secs (10.8-13.4)
[2018-10-03 05:30] LABS: ANION GAP 19.1 (8-16); CARBON DIOXIDE 24.8 mmol/L (21-32)
[2018-10-03 05:32] LABS: CREATININE 6.2 mg/dL (0.6-1.3)
[2018-10-03 05:33] LABS: BASOPHILS % (AUTO) 0.6 % (0.0-2.0); EOSINOPHILS # (AUTO) 0.1 K/uL (0-0.4); EOSINOPHILS % (AUTO) 1.8 % (0.0-4.0); LYMPHOCYTES # (AUTO) 1.1 K/uL (2.5-16.5); LYMPHOCYTES % (AUTO) 20.6 % (20.5-51.1); MEAN CORPUSCULAR HEMOGLOBIN 31 pg (27-31); MEAN CORPUSCULAR HGB CONC 33 g/dL (33-37); MEAN CORPUSCULAR VOLUME 93.9 fL (80-94); MONOCYTES # (AUTO) 0.4 K/uL (0.8-1.0); MONOCYTES % (AUTO) 6.8 % (1.7-9.3); NEUTROPHILS # (AUTO) 3.6 K/uL (1.8-7.7); NEUTROPHILS % (AUTO) 70.2 % (42.2-75.2); PLATELET COUNT (AUTO) 222 K/uL (140-450); POTASSIUM 5.9 mmol/L (3.5-5.1); RED BLOOD CELL COUNT(AUTO) 1.97 MIL/uL (4.20-5.40); RED CELL DISTRIBUTION WIDTH 13.9 % (11.6-13.7); WHITE BLOOD COUNT (AUTO) 5.2 K/uL (4.8-10.8)
[2018-10-03 05:35] LABS: HEMATOCRIT 18.4 % (36-48); HEMOGLOBIN 6.1 g/dL (12.0-16.0)
[2018-10-03] MEDS ORDERED: SODIUM POLYSTYRENE 15 GM/60 ML UDBTL PO ONE (05:35)
[2018-10-03] MEDS ORDERED: DEXTROSE 50% 50 ML SYR IVP ONE (05:35)
[2018-10-03] MEDS ORDERED: CALCIUM GLUCONATE 10% 1000 MG/10 ML VIAL IVP ONE (05:35)
[2018-10-03] MEDS ORDERED: INSULIN REGULAR, HUMAN 100 UNIT/ML VIAL IVP ONE (05:35)
--- NOTE | 2018-10-03 06:00 | NUR ---
PT RESTING IN BED, EYES OPEN. NO C/O OF PAIN. WILL CONTINUE TO MONITOR.
--- NOTE | 2018-10-03 06:43 | NUR ---
PT RETURNED FROM RESTROOM, LARGE LOOSE STOOL
--- NOTE | 2018-10-03 07:06 | NUR ---
REPORT GIVEN AND CARE TRANSFERRED TO DOMINIC FRITZ
--- NOTE | 2018-10-03 07:08 | NUR ---
Note tracy in EDM - 10/03/18 at 0720 by MED BP: 190/103, HR: 98, R: 25, 100%, PT STATES HEADACHE 12/17, DENIES CHEST PAIN. DR LUDWIG AND DR MUNOZ AWARE.
--- NOTE | 2018-10-03 07:08 | NUR ---
PT AAO X4. FULL CLEAR SPEECH. NO SIGNS AND SYMPTOMS OF DISTRESS NOTED. WILL CONTINUE TO MONITOR.
--- NOTE | 2018-10-03 07:18 | NUR ---
BP: 190/103, HR: 98, R: 25, 100%, PT STATES HEADACHE /10, DENIES CHEST PAIN. DR LUDWIG AND DR MUNOZ AWARE.
--- NOTE | 2018-10-03 07:19 | NUR ---
DR LUDWIG AT BEDSIDE FOR PT RE EVALUATION
[2018-10-03] MEDS ORDERED: fentaNYL 0.05 MG/ML VIAL IVP ONE (07:25)
[2018-10-03] MEDS ORDERED: ONDANSETRON 4 MG/2 ML VIAL IVP ONE (07:25)
--- NOTE | 2018-10-03 07:57 | NUR ---
RECEIVED BED SIDE REPORT FROM SALES MARKET LEADER. PT CAME IN WITH A GURNEY AND THEN WHEELED TO BED. PT CAN AMBULATE ONLY TO WHEELCHAIR. 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 PT COMPLAINS OF NO SOB BUT COMPLAINS OF 5/10 SY, SALES MARKET LEADER GAVE FENTANYL AND ZOFRAN AND KAYEXALATE. CURRENT BP 198/98, PER SALES MARKET LEADER, IS MADE AWARE. PT IS TO GET HD AND BLOOD TRANSFUSION TODAY. HGB 6/1, HCT 18, POTASSIUM 5.9. LEFT TUNNELED CATH ON LEFT UPPER CHEST. L AV FISTULA IS CLOGGED, PER PT, SHE IS TO HAVE IT UNCLOGGED IN 3 WEEKS. WILL CONTINUE TO MONITOR
--- NOTE | 2018-10-03 07:57 | NUR ---
Patient will be admitted to care of Dr Navarro. Admited to Tele,. Will go to room Rm 117. Belongings list completed. Report to DOMINIC Calloway.
[2018-10-03] MEDS ORDERED: ONDANSETRON 4 MG/2 ML VIAL IVP PRN (08:50)
[2018-10-03] MEDS ORDERED: diphenhydrAMINE 50 MG/ML VIAL IVP PRN (08:50)
[2018-10-03] MEDS ORDERED: ACETAMINOPHEN 325 MG TAB PO PRN (08:50)
[2018-10-03] MEDS ORDERED: CLONIDINE 0.2 MG TD SCH (09:00)
[2018-10-03] MEDS ORDERED: HYDRALAZINE HCL 10 MG PO SCH (09:00)
[2018-10-03] MEDS ORDERED: METOPROLOL 50 MG TAB PO SCH (09:00)
[2018-10-03] MEDS ORDERED: CALCITRIOL 0.25 MCG CAPLF PO SCH (09:00)
[2018-10-03] MEDS ORDERED: NIFEdipine 30 MG TABER PO SCH (09:00)
[2018-10-03] MEDS ORDERED: CINACALCET 30 MG TAB PO SCH (09:00)
[2018-10-03] MEDS ORDERED: CALCIUM ACETATE 667 MG TAB PO SCH (09:00)
--- NOTE | 2018-10-03 09:15 | NUR ---
MATEO HUNTER CALLED TO VERIFY HOME MEDS, PT UNSURE OF DOSAGE.
[2018-10-03] MEDS: HYDROcodone/APAP 5/325 MG 1 TAB TAB PO PRN ×2 (09:21→16:05)
--- NOTE | 2018-10-03 09:39 | NUR ---
GAVE PT AM MEDS AND METOPROLOL AND NIFEDIPINE. P TSTATES THAT SHE TAKES CLONIDINE, HYDRALAZINE, METOPROLOL ON HER DIALYSIS DAYS. PT STABLE, BREAKFAST AT BEDSIDE, ST ON TELE MONITOR. GAVE NORCO 5MG PER MD ORDER FOR HER SY THAT SHE STATES IS /. SHE STATES THAT SHE USUALLY GETS THOSE SY'S WHEN SHE DOESN'T GET DIALYSIS. STILL WAITING FOR BLOOD TO BE READY. WILL CALL HD RN WHEN BLOOD IS READY
--- NOTE | 2018-10-03 10:29 | NUR ---
CONTACTED [facility] AT [phone], SPOKE TO JERRY. SHE PROVIDED ME OCTOBER 16, 2018 AT 1000 FOR FOLLOW UP VISIT. COPY OF APPOINTMENT PROVIDED TO THE PATIENT.
[2018-10-03 10:35] VITALS: BP 198/98
--- NOTE | 2018-10-03 11:07 | NUR ---
PATIENT HAS BEEN SCREENED AND CATEGORIZED MODERATE NUTRITION RISK. PATIENT WILL BE SEEN WITHIN 3-5 DAYS OF ADMISSION. 10/05/18RASHAD JEAN RD
--- NOTE | 2018-10-03 11:26 | NUR ---
STARTED 1 UNIT OF O POSITIVE BLOOD. IV LINE FLUSHES WELL AND GOOD BLOOD RETURN. PT STATES THAT NO BLOOD TRANSFUSION REACTION BEFORE. VS STABLE PRIOR TO STARTING BLOOD. PHYSICIST CRYOGENICS MAT VERIFIED BLOOD. WILL CONTINUE TO MONITOR
--- NOTE | 2018-10-03 11:41 | NUR ---
VS STILL STABLE. PT STATES THAT SHE FEELS NOTHING DIFFERENT PRIOR TO STARTING BLOOD. WILL CONTINUE TO MONITOR
--- NOTE | 2018-10-03 11:54 | NUR ---
CHARGE NURSE MAT INFORMED THIS IT SENIOR ANALYST THAT PER DR KOLB, PATIENT DOES NOT NEED HIGH RISK FOLLOW UP APPOINTMENT.
[2018-10-03] MEDS ORDERED: MINOXIDIL 2.5 MG TAB PO SCH ×3 (12:30→21:00)
[2018-10-03] MEDS: cloNIDine 0.1 MG TAB PO SCH ×2 (12:51→16:05)
[2018-10-03] MEDS ORDERED: NON-FORMULARY ITEM (Hydralazine HCl (Hydralazine Hydrochloride) 50 MG) PO SCH (13:00)
[2018-10-03] MEDS ORDERED: hydrALAZINE 25 MG TAB PO SCH (13:00)
[2018-10-03] MEDS ORDERED: CLONIDINE 0.2 MG PO SCH (13:00)
--- NOTE | 2018-10-03 14:10 | NUR ---
2ND UNIT OF BLOOD STARTED. GAVE BLOOD TO HD RN WHO IS GOING TO RUN IT THROUGH THE MACHINE. PT IS HAVING NO ALLERGIC REACTIONS. VS STILL STABLE. WILL CONTINUE TO MONITOR
--- NOTE | 2018-10-03 15:31 | NUR ---
HEMODIALYSIS DONE. PT'S BP 185/100. WILL GIVE MISSED MEDS FOR 1300 AND HER 1700 BP MED. PT COMPLAINS OF NO SY OR PAIN. PT STATES THAT SHE FEELS BETTER. WILL RUN REPEAT HGB LAB
[2018-10-03 15:57] VITALS: BP 185/100
[2018-10-03 17:15] LABS: BASOPHILS % (AUTO) 0.7 % (0.0-2.0); EOSINOPHILS # (AUTO) 0.1 K/uL (0-0.4); EOSINOPHILS % (AUTO) 2.4 % (0.0-4.0); HEMATOCRIT 24.6 % (36-48); HEMOGLOBIN 8.4 g/dL (12.0-16.0); LYMPHOCYTES % (AUTO) 20.9 % (20.5-51.1); MEAN CORPUSCULAR HEMOGLOBIN 31 pg (27-31); MEAN CORPUSCULAR HGB CONC 34 g/dL (33-37); MEAN CORPUSCULAR VOLUME 91.1 fL (80-94); MONOCYTES # (AUTO) 0.3 K/uL (0.8-1.0); MONOCYTES % (AUTO) 6.6 % (1.7-9.3); NEUTROPHILS # (AUTO) 3.5 K/uL (1.8-7.7); NEUTROPHILS % (AUTO) 69.4 % (42.2-75.2); PLATELET COUNT (AUTO) 248 K/uL (140-450); RED BLOOD CELL COUNT(AUTO) 2.71 MIL/uL (4.20-5.40); RED CELL DISTRIBUTION WIDTH 14.8 % (11.6-13.7)
--- NOTE | 2018-10-03 17:15 | NUR ---
HGB 8.4, HCT 24. CBC CAME BACK NORMAL. SPOKE WITH EARLIER AND HE SAID THAT IF HGB CAME BACK NORMAL, PT IS CLEARED FOR DC. SPOKE WITH AND HE ASKED FOR REPEAT HGB. NO CHANGE IN ORDERS. PT IS MEDICALLY CLEARED FOR DC PER 'S ORDERS. VS STABLE. GAVE CLONIDINE AND LONITEN D/T BP 173/93 Addendum: 10/03/18 at 1852 by Elli Stewart RN BP 185/100
[2018-10-03 17:31] VITALS: BP 173/93
[2018-10-03 17:33] LABS: ANION GAP 14.6 (8-16); CARBON DIOXIDE 28.9 mmol/L (21-32); CREATININE 2.7 mg/dL (0.6-1.3); POTASSIUM 3.5 mmol/L (3.5-5.1)
--- NOTE | 2018-10-03 18:00 | NUR ---
PT'S BP WENT DOWN TO 173/93. PT COMPLAINS OF NO DIZZINESS OR SY. WILL CONTINUE TO MONITOR
--- NOTE | 2018-10-03 18:52 | NUR ---
EDUCATED PT ON DC INSTRUCTIONS AND RX MEDS AND S/E. PT VERBALIZED UNDERSTANDING. TOOK OUT IV, APPLIED PRESSURE WITH GAUZE, NO BLEEDING NOTED. TOOK PT OFF TELE MONITOR AND CUT WRISTBAND. AT BEDSIDE WHO WILL TRANSPORT HER BACK HOME. ALL PERSONAL BELONGINGS TAKEN WITH PT. PT IS TAKING HER WHEELCHAIR THAT SHE BROUGHT. PT IN STABLE CONDITION, IN NO PAIN AND IN NO RESPIRATORY DISTRESS.
[2018-10-03] MEDS ORDERED: WARFARIN 2.5 MG TAB PO SCH (21:00)
== END 2018-10-03 18:50 | disposition home or self-care (01) | DRG 470 ==
LOC: MED 04:15 → MTU 07:24
PROVIDERS: ADMIT Internal Medicine Pulmonary Disease; ATTEND Internal Medicine Pulmonary Disease
PROC: 30233N1 Transfusion of Nonautologous Red Blood Cells into Peripheral Vein, Percutaneous Approach (ICD-10-PCS; principal; 2018-10-03)
PROC: 5A1D70Z Performance of Urinary Filtration, Intermittent, Less than 6 Hours Per Day (ICD-10-PCS; 2018-10-03)
DX: I12.0 Hypertensive chronic kidney disease with stage 5 chronic kidney disease or end stage renal disease (principal); E87.5 Hyperkalemia; N18.6 End stage renal disease; D63.8 Anemia in other chronic diseases classified elsewhere; J45.909 Unspecified asthma, uncomplicated; Z79.01 Long term (current) use of anticoagulants; Z99.2 Dependence on renal dialysis; Z88.5 Allergy status to narcotic agent; Z88.0 Allergy status to penicillin; Z79.899 Other long term (current) drug therapy
CPT/HCPCS: 36415; 80048; 82948; 85025; 85610; 85730; 86886; 86900; 86901; 86920; 87081; 90935; 93005; 96374; 96375; 99285; J0610; J1644; J1815; J2405; J3010; J7030; P9016

== ENCOUNTER 2019-05-15 19:30 | Inpatient (IN) | payer OTHER ==
[~2019-05-15] VITALS: Ht 165.1 cm; Wt 43.1 kg
[~2019-05-15 19:30] MED LIST changes: -ACYC200C4 PO; -BENA20TA PO; -DOCU-299 PO; -HYDR-5123 PO; +METO100T22 PO; -METO100T98 PO; +NIFE30TA36 PO; -NIFE30TE8 PO; -PANT40EC PO; -SEVE800T PO; -VITD1000 PO
[2019-05-15 20:10] VITALS: BP 236/139
--- NOTE | 2019-05-15 20:13 | NUR ---
PT IN CHAIR A WAITING FOR ER BED
--- NOTE | 2019-05-15 20:15 | NUR ---
PT TO BED 11
--- NOTE | 2019-05-15 20:20 | NUR ---
AMBULATED FROM WHEELCHAIR TO BED 11 WITH UPRIGHT STEADY GAIT. ASSISSTED BY FAMILY MEMBER.
[2019-05-15] MEDS ORDERED: fentaNYL 0.05 MG/ML VIAL IVP ONE (20:40)
[2019-05-15] MEDS ORDERED: ONDANSETRON 4 MG ODT PO ONE (20:40)
--- NOTE | 2019-05-15 20:50 | NUR ---
EKG PERFORMED AT BEDSIDE WITH RN PRESENT
--- NOTE | 2019-05-15 20:50 | NUR ---
C/O HIGH BLOOD PRESSURE X TODAY. PT STATES SHES BEEN HAVING SY. DENIES ANY BLURRY VISION. A &O X4. STEADY GAIT. CAP REFILL < 3. PULSES +2 RADIAL BUE. VSS. ALLERGIES: MORPHINE, PENCILLIN PMH: HD (LEFT BRACHIAL FISTULA, PRECLAMPSIA, BILAT HIP REPLACEMENT, TEMPORAY DIALYSIS ACCESS ON LEFT CHEST WALL.
[2019-05-15 21:23] LABS: BASOPHILS # (AUTO) 0.1 K/uL (0.00-0.22); EOSINOPHILS # (AUTO) 0.1 K/uL (0-0.4); EOSINOPHILS % (AUTO) 1.7 % (0.0-4.0); HEMATOCRIT 25.5 % (36-48); HEMOGLOBIN 8.4 g/dL (12.0-16.0); LYMPHOCYTES # (AUTO) 1.2 K/uL (2.5-16.5); LYMPHOCYTES % (AUTO) 16.7 % (20.5-51.1); MEAN CORPUSCULAR HEMOGLOBIN 32 pg (27-31); MEAN CORPUSCULAR HGB CONC 33 g/dL (33-37); MEAN CORPUSCULAR VOLUME 97.6 fL (80-94); MONOCYTES # (AUTO) 0.6 K/uL (0.8-1.0); MONOCYTES % (AUTO) 8.7 % (1.7-9.3); NEUTROPHILS # (AUTO) 5.2 K/uL (1.8-7.7); NEUTROPHILS % (AUTO) 71.9 % (42.2-75.2); PLATELET COUNT (AUTO) 244 K/uL (140-450); RED BLOOD CELL COUNT(AUTO) 2.61 MIL/uL (4.20-5.40); RED CELL DISTRIBUTION WIDTH 16.7 % (11.6-13.7); WHITE BLOOD COUNT (AUTO) 7.3 K/uL (4.8-10.8)
--- NOTE | 2019-05-15 21:26 | NUR ---
XR AT BEDSIDE.
[2019-05-15 21:56] LABS: ALBUMIN 3.5 g/dL (3.4-5.0); ANION GAP 15.5 (8-16); CARBON DIOXIDE 28.6 mmol/L (21-32); CREATININE 3.7 mg/dL (0.6-1.3); POTASSIUM 4.1 mmol/L (3.5-5.1); TOTAL BILIRUBIN 0.5 mg/dL (0.0-1.0)
[2019-05-15] MEDS ORDERED: LABETALOL 100 MG/20 ML VIAL IVP ONE (22:00)
[2019-05-15] MEDS ORDERED: HYDROmorphone PFS 2 MG/ML SYR IVP ONE (22:00)
[2019-05-15 22:05] LABS: CREATINE KINASE MB 0.8 ng/mL (0-3.6)
[2019-05-15] MEDS ORDERED: ONDANSETRON 4 MG/2 ML VIAL IVP ONE (22:30)
--- NOTE | 2019-05-15 23:20 | NUR ---
PT TRANSFER TO CT VIA [facility].
--- NOTE | 2019-05-15 23:34 | NUR ---
RETURNED FROM CT VIA [facility].
[2019-05-16] VITALS (84 sets, daily range): BP systolic 126–239; BP diastolic 71–145
[2019-05-16] MEDS ORDERED: NITROGLYCERIN 0.4 MG TAB SL ONE (00:05)
[2019-05-16] MEDS ORDERED: NITROGLYCERIN 50 MG/D5W PREMIX 250 ML IV ONE (00:15)
--- NOTE | 2019-05-16 00:48 | NUR ---
PT STARTED ON NITRO DRIP. PRIOR VS: BP 202/108, HR 113, SPO2 90%, START: 15MCG/MIN, 4.5ML/HR.
--- NOTE | 2019-05-16 00:54 | NUR ---
INCREASE DRIP: 20MCG/MIN, 6ML/HR. BP: 172/114. HR 114.
[2019-05-16] MEDS ORDERED: HYDROcodone/APAP 5/325 MG 1 TAB TAB PO PRN (01:10)
[2019-05-16] MEDS ORDERED: ACETAMINOPHEN 325 MG TAB PO PRN (01:10)
[2019-05-16] MEDS ORDERED: HYDROmorphone 1 MG/ML AMP IVP ONE (01:15)
[2019-05-16] MEDS ORDERED: ENALAPRIL 10 MG TAB PO SCH (01:15)
[2019-05-16] MEDS ORDERED: hydrALAZINE 20 MG/ML VIAL IM SCH (01:15)
[2019-05-16] MEDS ORDERED: NIFEdipine 30 MG TABER PO SCH (01:15)
--- NOTE | 2019-05-16 01:19 | NUR ---
INCREASE DRIP: 25MVG/MIN, 7.5ML/HR. BP: 209/114, HR 109.
--- NOTE | 2019-05-16 01:23 | NUR ---
INCREASE DRIP: 30MCG/MIN, 9ML/HR. BP: 187/121, HR 113.
--- NOTE | 2019-05-16 01:42 | NUR ---
INCREASE DRIP: 40MCG/MIN, 12ML/HR. BP: 203/17, HR 115.
--- NOTE | 2019-05-16 01:49 | NUR ---
INCREASE DRIP: 45MCG/MIN, 13.5ML/HR. BP: 239/144, HR 120.
--- NOTE | 2019-05-16 01:57 | NUR ---
INCREASE DRIP: 50MCG/MIN, 15ML/HR. BP: 201/110, HR 112.
--- NOTE | 2019-05-16 02:02 | NUR ---
INCREASE DRIP: 55MCG/MIN, 16.5ML/HR. BP: 207/107, HR 109.
--- NOTE | 2019-05-16 02:06 | NUR ---
INCREASE DRIP: 65MCG/MIN, 19.5ML/HR. BP: 210/121, HR 109.
--- NOTE | 2019-05-16 02:09 | NUR ---
INCREASE DRIP: 75MCG/MIN, 22.5ML/HR. BP: 189/108, HR 111.
--- NOTE | 2019-05-16 02:15 | NUR ---
INCREASE DRIP: 85MCG/MIN, 25.5ML/HR. BP: 202/112, HR 112.
--- NOTE | 2019-05-16 02:22 | NUR ---
INCREASE DRIP: 95MCG/MIN, 28.5ML/HR. BP: 199/108, HR 109.
--- NOTE | 2019-05-16 02:28 | NUR ---
INCREASE DRIP: 100MCG/MIN, 30ML/HR. BP: 183/112, HR 109.
--- NOTE | 2019-05-16 02:31 | NUR ---
INCREASE DRIP: 110MCG/MIN, 33ML/HR. BP: 189/114, HR 107.
--- NOTE | 2019-05-16 02:45 | NUR ---
PT ARRIVED VIA GURNEY TRANSFERRED TO ICU 6. REPORT RECEIVED FROM STONE ALFARO. PT IS ALERT AND ORIENTED X3. ABLE TO FOLLOW COMMANDS. PT CALM, COOPERATIVE. PT C/O NAUSEA AND VOMITING. LUNG SOUNDS CLEAR. RESPIRATIONS EVEN AND UNLABORED. ON NC 2L/MIN. PT HAS L ARM BRACHIAL FISTULA AND TEMPORARY CHEST WALL DIALYSIS ACCESS. SINUS TACHYCARDIA ON MONITOR. ELEVATED BLOOD PRESSURE ON MONITOR. IV SITES ON R FOREARM 22 GAUGE INFUSING NITRO DRIP AT 110 MCG/MIN. AND R HAND 22 GAUGE. BOWEL SOUNDS ACTIVE, ABDOMEN SOFT AND ROUND. SKIN WARM AND DRY. NO WOUNDS NOTED. TUMOR MASS NOTED ON LEFT LOWER LEG. PT HAS DIALYSIS TUES, THURS, SAT. HOB 30 DEGREES, BED LOCKED IN LOWEST POSITION. WILL CONTINUE TO MONITOR.
--- NOTE | 2019-05-16 02:45 | NUR ---
Patient will be admitted to care of DR. PRIDE . Admited to ICU. Will go to room 6. Belongings list completed. Report to DOMINIC ESCOBEDO .
[2019-05-16] MEDS: METOPROLOL 50 MG TAB PO SCH ×3 (03:00→20:43)
[2019-05-16] MEDS: ISOSORBIDE DINITRATE 20 MG TAB PO SCH ×4 (03:00→16:47)
[2019-05-16] MEDS: hydrALAZINE 20 MG/ML VIAL IVP PRN ×3 (03:17→23:43)
[2019-05-16] MEDS: ONDANSETRON 4 MG/2 ML VIAL IVP PRN ×3 (03:26→13:30)
--- NOTE | 2019-05-16 03:30 | NUR ---
HYDRALAZINE GIVEN WILL CONTINUE TO MONITOR BLOOD PRESSURE. ZOFRAN GIVEN FOR NAUSEA AND VOMITING.
[2019-05-16] MEDS: LORazepam 2 MG/ML VIAL IVP PRN ×2 (03:52→08:36)
--- NOTE | 2019-05-16 04:00 | NUR ---
ATIVAN GIVEN FOR ANXIETY.
[2019-05-16] MEDS: ENALAPRILAT 2.5 MG/2 ML VIAL IVP PRN ×2 (04:30→13:50)
--- NOTE | 2019-05-16 04:30 | NUR ---
SPOKED WITH DR PRIDE, VIA TELEPHONE. ORDERS TO CONTINUE NITROGLYCERIN AND GIVEN KLONIDINE PATCH. DR PRIDE MADE AWARE OF PT C/O 01/16 PAIN. NO ORDERS GIVEN FOR ANY PAIN MEDICATIONS
--- NOTE | 2019-05-16 04:30 | NUR ---
VASOTEC GIVEN, BLOOD PRESSURE IN THE 200's. WILL CONTINUE TO MONITOR. Addendum: 05/16/19 at 07 by Blair Hernandez RN BLOOD PRESSURE DECREASED TO 167/106.
[2019-05-16] MEDS ORDERED: NITROGLYCERIN 50 MG/D5W PREMIX 250 ML IV PRN (05:35)
--- NOTE | 2019-05-16 07:20 | NUR ---
REPORT GIVEN TO MAT RN FOR CONTINUITY OF CARE.
--- NOTE | 2019-05-16 07:24 | NUR ---
DR BUSTAMANTE PAGED AND CALLED BACK, REPORTED OF PT C/O SOLOMON SY, BP 203/120, HR 130'S VOMITING, ORDER FOR NICARDIPINE AND DILAUDID RECEIVED
[2019-05-16] MEDS ORDERED: NICARDIPINE HYDROCHLORIDE 25 MG in NACL 0.9% 240 ML IV SCH (07:25)
[2019-05-16] MEDS ORDERED: HYDROmorphone 1 MG/ML AMP ONE (07:26)
--- NOTE | 2019-05-16 07:30 | NUR ---
BEDSIDE REPORT RECEIVED FROM LOCAL HAZMAT DRIVER NURSE, PT AAOX4, PT C/O SEVER SY AND NAUSEA, HR INCREASED, BP INCREASED, RR INCREASED, NO IV PAIN MEDS ORDERED, DR DIANNA CLARK, PT ON NITRO DRIP AT 90MCG/MIN (27ML/HR), PIV TO R FA 22G, R FINGER 22G OCCLUDED, DC'D, ABD SOFT, NON TENDER, PT WITH DIALYSIS CATHETER ON LEFT CHEST WALL, NON FUNCTIONINIG AV SHUNT TO LEFT ARM, POC REVIEWED, ALL SAFETY MEASURES IN PLACE, WILL CONITUE TO HEENA.
[2019-05-16] MEDS: HYDROmorphone 1 MG/ML AMP IVP PRN ×3 (07:31→13:31)
--- NOTE | 2019-05-16 07:35 | NUR ---
PT REPEATEDLY REMOVES HER NASAL CANNULA O2, O2 SAT DECREASES TO LOW 80'S, PT EDUCATED ON IMPORTANCE OF SUPPLEMENTAL O2, PT VERBALIZED UNDERSTANDING.
--- NOTE | 2019-05-16 08:30 | NUR ---
PATIENT HAS BEEN SCREENED AND CATEGORIZED MODERATE NUTRITION RISK. PATIENT WILL BE SEEN WITHIN 3-5 DAYS OF ADMISSION. 05/18/19 05/20/[address]
[2019-05-16] MEDS ORDERED: cloNIDine-TTS2 0.2 MG/24 HR 1 EA PATCH TD SCH (09:00)
[2019-05-16] MEDS ORDERED: METOPROLOL 50 MG TAB PO SCH (09:00)
[2019-05-16] MEDS ORDERED: hydrALAZINE 10 MG TAB PO SCH (09:00)
[2019-05-16] MEDS ORDERED: HYDRALAZINE HCL 10 MG PO SCH (09:00)
[2019-05-16] MEDS ORDERED: COMMUNICATION ORDER MC PRN (09:05)
[2019-05-16] MEDS: cloNIDine 0.1 MG TAB PO SCH ×2 (09:35→13:00)
--- NOTE | 2019-05-16 09:50 | NUR ---
DR PRIDE AT BEDSIDE, REPORTED ON INCREASED HR AT 140-150, ESMOLOL ORDER RECEIVED.
--- NOTE | 2019-05-16 10:05 | NUR ---
SISTER AND MOTHER AT BEDSIDE
--- NOTE | 2019-05-16 10:35 | NUR ---
US AT BEDSIDE, UPPER EXT
[2019-05-16] MEDS: ESMOLOL IV PRN ×3 (10:39→20:09)
[2019-05-16] MEDS ORDERED: [UNRECOGNIZED DRUG - OTHER] IV PRN (11:00)
[2019-05-16] MEDS ORDERED: METOPROLOL 5 MG/5 ML VIAL IV SCH (11:00)
--- NOTE | 2019-05-16 11:07 | NUR ---
MOTHER REFUSES NITROGLYCERINE DRIP, WANTS TO TALK TO DOCTOR Addendum: 05/16/19 at 1158 by Mikki Hernandez RN PER PT'S SISTER, MOTHER WILL NEED A EMAIL CAMPAIGN MANAGER WHEN DOCTOR SPEAKS WITH HER. AWAITING DR TO ARRIVE
--- NOTE | 2019-05-16 11:52 | NUR ---
ECHOCARDIOGRAM AT BEDSIDE
--- NOTE | 2019-05-16 13:13 | NUR ---
05/16/19 RD INITIAL ASSESSMENT COMPLETED PLEASE REFER TO NUTRITION ASSESSMENT UNDER CARE ACTIVITY FOR ESTIMATED NUTRITIONAL NEEDS. 1. CONTINUE RENAL AND CARDIAC DIET TOLERATED 2. ENCOURAGE PO INTAKE 3. IF PO INTAKE <50% CONSIDER ADDING NEPRO BID 4. RD TO FOLLOW-UP 2-3 DAYS, HIGH RISK RASHAD JEAN, CAITY
--- NOTE | 2019-05-16 13:20 | NUR ---
DR JEFFERS AT BEDSIDE, SPEAKING WITH PT'S MOTHER ON ASSEMBLER TRUCK TRAILER PHONE #[phone]
--- NOTE | 2019-05-16 13:30 | NUR ---
PER DR OLMEDO AT BEDSIDE, OK TO 2MG TOTAL OF DILAUDID AT THIS TIME FOR SEVER HEAD PAIN.
--- NOTE | 2019-05-16 13:45 | NUR ---
PT WITH VOMITING, UNABLE TO SADIQ PO BP MEDS, PRN VASOTEC GIVEN.
--- NOTE | 2019-05-16 14:00 | NUR ---
DOUGH MIXER OPERATOR MARGE AT BEDSIDE, DISCUSSED PLAN WITH MOTHER AND PATIENT, EXPLAINED THAT MEDICATIONS ARE ORDERED TO LOWER HER BP AND HR, PT REFUSES PICC LINE INSERTION, PT AND MOTHER REFUSES NITROGLYCE DRIP, PT FALLING A SLEEP IN THE MIDDLE OF CONVERSATIONS, SHE STATES SHE IS VERY SLEEPY BECAUSE SHE DIDNT GET ANY SLEEP LAST NIGHT, PT STATED THAT SHE WANTS HER MOTHER TO MAKE MEDICAL DECISIONS IN CASE SHE IS NOT ABLE TO MAKE DECISIONS. PT STATED THAT HER " DOES NOT KNOW MUCH ABOUT MY MEDICAL CONDITION, SO i WANT MY MOTHER TO BE THE DECISION MAKER"
--- NOTE | 2019-05-16 14:34 | NUR ---
PT NOW SLEEPING HR 111, BP 184/86, O2 SAT 100%, PT MOTHER ENCOURAGED TO LET HER SLEEP BECAUSE HER BP AND HR CAN GET ELEVATED TO 150 HR, 200 SBP, MOTHER KEEPS WAKING PATIENT UP BECAUSE "IT'S 2 OCLOCK IN THE AFTERNOON".
--- NOTE | 2019-05-16 15:48 | NUR ---
PT TOOK OFF O2 AGAIN, O2 SAT 79-82 ON RA, 2L NC REPLACED, PT EDUCATED TO KEEP IT ON, PT STATES SHE NEEDS TO BLOW HER NOSE OFTEN,
[2019-05-16] MEDS: HYDROmorphone PFS 2 MG/ML SYR IVP PRN ×2 (16:11→22:47)
--- NOTE | 2019-05-16 16:11 | NUR ---
PT C/O SEVER SY, MEDICATED WITH DILAUDID PER PRN ORDER.
--- NOTE | 2019-05-16 16:33 | NUR ---
PT SLEEPING BP 164/81, HR 118, O2 SAT 99% WITH 2L NC, PT'S AND SON AND MOTHER AT BEDSIDE, WILL CONTINUE TO MONITOR.
--- NOTE | 2019-05-16 16:45 | NUR ---
PT REMOVED NASAL CANNULA AGAIN, ASKED TO ENSURE SHE DOES NOT REMOVE HER O2 CANNULA
[2019-05-16] MEDS: hydrALAZINE 10 MG TAB PO SCH (16:46)
--- NOTE | 2019-05-16 17:07 | NUR ---
DR Omayra HUANG AT BEDSIDE, RECEIVED ORDER TO INSERT NGT TO GIVE MEDS, AND REGLAN FOR NAUSEA.
[2019-05-16] MEDS: METOCLOPRAMIDE 10 MG/2 ML INJ VIAL IVP PRN (17:59)
--- NOTE | 2019-05-16 18:40 | NUR ---
DR LAL AT BEDSIDE, NOTIFIED OF CONTINUING N/V AND UNABLE TO TAKE PO BP MEDS, CLONIDINE PATCH ORDERED.
[2019-05-16] MEDS ORDERED: cloNIDine-TTS3 0.3 MG/24 HR 1 EA PATCH TD SCH (18:45)
--- NOTE | 2019-05-16 19:15 | NUR ---
REPORT RECEIVED FROM AM SHIFT RN. PT A&O X4. SINUS TACHYCARDIA ON MONITOR. BLOOD PRESSURE ELEVATED 170'S. HEART SOUNDS HEARD S1& S2. LUNG SOUNDS CLEAR. ON NC 2L/MIN. ABDOMEN SOFT, BOWEL SOUNDS ACTIVE. IV SITE R FOREARM 22 GAUGE INFUSING ESMOLOL DRIP 200 MCG/MIN. IV SITE R HAND 22, GOOD BLOOD RETURN, INTACT AND PATENT. L BRACHIAL FISTULA, PALPABLE THRILL. TEMPORARY DIALYSIS CATHETER IN THE L CHEST WALL NOTED. CLONIDINE PATCH ON R UPPER CHEST. SKIN INTACT, WARM AND DRY. L LOWER LEG TUMOR MASS NOTED. HOB 30 DEGREES. BED LOCKED IN LOWEST POSITION. WILL CONTINUE TO MONITOR.
--- NOTE | 2019-05-16 20:00 | NUR ---
TEMPERATURE OF 100.0. ICE PACK GIVEN COOLING MEASURES. Addendum: 05/17/19 at 0743 by Blair Hernandez RN TEMPERATURE WENT DOWN TO 99.6.
--- NOTE | 2019-05-16 20:46 | NUR ---
DIALYSIS NURSE FATIMAH CALLED TO NOTIFY OF DIALYSIS ORDER FOR TOMORROW AM AT 0800.
--- NOTE | 2019-05-16 22:45 | NUR ---
PT SITTING UP IN BED. PT AWAKE, TALKING WITH AT BEDSIDE.
[2019-05-17] VITALS (77 sets, daily range): BP systolic 137–213; BP diastolic 57–108
--- NOTE | 2019-05-17 00:12 | NUR ---
PT RESTING IN BED. EYES CLOSED. VITAL SIGNS STABLE. RESPIRATIONS EVEN AND UNLABORED. WILL CONTINUE TO MONITOR.
[2019-05-17] MEDS: METOCLOPRAMIDE 10 MG/2 ML INJ VIAL IVP PRN ×3 (00:22→16:50)
--- NOTE | 2019-05-17 00:22 | NUR ---
REGLAN GIVEN FOR NAUSEA AND VOMITING. WILL CONTINUE TO MONITOR.
[2019-05-17] MEDS: ESMOLOL IV PRN ×4 (00:23→14:34)
--- NOTE | 2019-05-17 01:06 | NUR ---
PT C/O OF PAIN. DILAUDID PRN GIVEN. Addendum: 05/17/19 at 0756 by Blair Hernandez RN CORRECT TIME. DILAUDID GIVEN AT 0210.
--- NOTE | 2019-05-17 02:06 | NUR ---
PT REPORTS 0/10 PAIN. Addendum: 05/17/19 at 0758 by Blair Hernandez RN CORRECT TIME PT REPORTS RELIEF OF PAIN AT 0240.
[2019-05-17] MEDS: HYDROmorphone PFS 2 MG/ML SYR IVP PRN ×6 (02:10→17:24)
--- NOTE | 2019-05-17 04:12 | NUR ---
PT RESTING IN BED. EYES CLOSED. RESPIRATIONS EVEN AND UNLABORED. VITALS SIGNS STABLE. WILL CONTINUE TO MONITOR.
--- NOTE | 2019-05-17 05:37 | NUR ---
PT REQUESTING FOR PAIN MEDICATION. DILAUDID GIVEN FOR PAIN.
--- NOTE | 2019-05-17 06:37 | NUR ---
PT REPORTS RELIEF OF PAIN.
--- NOTE | 2019-05-17 07:20 | NUR ---
BEDSIDE REPORT RECEIVED FROM CUSTOMER EXPERIENCE STRATEGIST NURSE, PT AWAKE ALERT MOVES ALL EXT, , RESTING QUIETLY, NO C/O SY AT THIS TIME, ON GUARD ENTRANCE REGISTRAR NSR AT 87, RR 22, BP 147/72, O2 SAT 99%, PT ON ESMOLOL DRIP AT 200MCG/KG/MIN (60ML/HR) TO RFA 22G IV, SITE WNL, RESP EVEN UNLABORED, ON 2L NC O2, BS CLEAR, SKIN WARM DRY COLOR WNL FOR RACE, ABD SOFT, NON TENDER, NON DISTENDED, ALL SAFETY MEASURES IN PLACE, POC REVIEWED, WILL CONTINUE TO MONITOR.
[2019-05-17 07:32] LABS: BASOPHILS # (AUTO) 0.1 K/uL (0.00-0.22); BASOPHILS % (AUTO) 0.7 % (0.0-2.0); HEMATOCRIT 24.6 % (36-48); HEMOGLOBIN 7.8 g/dL (12.0-16.0); LYMPHOCYTES # (AUTO) 0.8 K/uL (2.5-16.5); LYMPHOCYTES % (AUTO) 8.7 % (20.5-51.1); MEAN CORPUSCULAR HEMOGLOBIN 32 pg (27-31); MEAN CORPUSCULAR HGB CONC 32 g/dL (33-37); MEAN CORPUSCULAR VOLUME 99.7 fL (80-94); MONOCYTES # (AUTO) 0.6 K/uL (0.8-1.0); MONOCYTES % (AUTO) 6.2 % (1.7-9.3); NEUTROPHILS # (AUTO) 7.9 K/uL (1.8-7.7); NEUTROPHILS % (AUTO) 84.4 % (42.2-75.2); PLATELET COUNT (AUTO) 260 K/uL (140-450); RED BLOOD CELL COUNT(AUTO) 2.47 MIL/uL (4.20-5.40); RED CELL DISTRIBUTION WIDTH 16.7 % (11.6-13.7); WHITE BLOOD COUNT (AUTO) 9.4 K/uL (4.8-10.8)
[2019-05-17] MEDS: ONDANSETRON 4 MG/2 ML VIAL IVP PRN ×3 (08:01→17:24)
[2019-05-17] MEDS: METOPROLOL 50 MG TAB PO SCH ×2 (09:00→11:32)
[2019-05-17] MEDS: hydrALAZINE 10 MG TAB PO SCH (09:00)
[2019-05-17] MEDS: ISOSORBIDE DINITRATE 20 MG TAB PO SCH ×3 (09:00→17:00)
[2019-05-17] MEDS ORDERED: EPOETIN ALFA 10,000 UNITS/ML VIAL SUBQ SCH (09:00)
[2019-05-17 09:11] LABS: ANION GAP 16.7 (8-16); CARBON DIOXIDE 28.5 mmol/L (21-32); POTASSIUM 5.2 mmol/L (3.5-5.1)
[2019-05-17 09:12] LABS: ALBUMIN 3.4 g/dL (3.4-5.0); TOTAL BILIRUBIN 0.5 mg/dL (0.0-1.0)
[2019-05-17 09:13] LABS: CREATININE 5.8 mg/dL (0.6-1.3)
--- NOTE | 2019-05-17 10:15 | NUR ---
DIALYSIS ONGOING AT BEDSIDE, NEW BAG OF ESMOLOL STARTED AT SAME RATE 60ML/HR (200MCG/KG/MIN), EPOGEN WILL BE GIVEN BY DIALYSIS NURSE, REGLAN GIVEN FOR N/V, PT UNABLE TO TAKE ANY PO MEDS DUE TO N/V.
--- NOTE | 2019-05-17 10:45 | NUR ---
DR Omayra HUANG AT BEDSIDE, DR SETH AT BEDSIDE
[2019-05-17] MEDS ORDERED: hydrALAZINE 25 MG TAB ONE (10:59)
--- NOTE | 2019-05-17 12:45 | NUR ---
HEMODILAYSIS DONE, 2.6L REMOVED PER ARIADNE PRIDE RN
[2019-05-17] MEDS ORDERED: cloNIDine-TTS3 0.3 MG/24 HR 1 EA PATCH TD SCH (14:30)
[2019-05-17] MEDS: hydrALAZINE 25 MG TAB PO SCH ×2 (14:31→17:00)
--- NOTE | 2019-05-17 15:15 | NUR ---
DC [age] YRS OLD FEMALE PATIENT WAS ADMITTED FROM HOME WITH A DX OF HTN URGENCY. BP 224/97 PT HAS A HX OF PREECLAMPSIA, ESRD ON HEMODIALYSIS TTHS, VENOUS DOPPLER (-) FOR DVT CT HEAD (-) CXRAY NEGATIVE. ICU LEVEL FOR ESMOLOL AND NITROGLYCERIN DRIP. CONSULT WITH GROUNDMAN DR LAL ORDERED DIALYSIS AND HANDKERCHIEF CUTTER CONSULT WITH DR REINA Cutler ORDERED CONTINUE IV THERAPY. DC PLAN TO GO HOME WHEN STABLE .CM TO FOLLOW.
--- NOTE | 2019-05-17 16:23 | NUR ---
PT RESTING QUIETLY IN NO ACUTE DISTRESS, HR 85, BP 168/88, O2SAT 100 WITH 2L NC O2, RR 15, NO C/O PAIN OR NAUSEA, PT ABLE TO KEEP PILL DOWN SO FAR, ESMOLOL DRIP ONGOING AT 150MCG/KG/HR (45ML/HR) IV SITE WNL, NO IMMEDIATE NEEDS AT THIS TIME.
--- NOTE | 2019-05-17 17:05 | NUR ---
PT CONTINUES TO BE NAUSEATED WITH INTERMITTENT VOMITING, REGLAN GIVEN, DR DORINDA CLARK.
--- NOTE | 2019-05-17 18:29 | NUR ---
PT C/O FEELING NAUSEATED AND UNABLE TO EAT, PT UPSET THAT ALL THE MEDICATION HAS NOT WORKED, PT STATES SHE WANTS TO GO HOME NOW, SHE WANTS TO SPEAK WITH DOCTOR NOW AND GO HOME, DR SETH PAGEEdith AGAIN.
--- NOTE | 2019-05-17 18:50 | NUR ---
DR SETH NOTIFEID OF PT'S REQUEST TO LEAVE THE HOSPITAL AND GO HOME BECAUSE SHE HAS NOT BEEN ABLE TO EAT ALL DAY BECAUSE OF THE NAUSEA, NAUSEA MEDICATIONS ARE NOT WORKING, RECEIVED TELEPHONE ORDER FOR PHENERGAN 12.5MG IV Q4H PRN, PT EXPLAINED THAT SHE IS STILL ON ESMELOL DRIP TO CONTROL BP, SUPPLEMENTAL OXYGEN, RISKS AND CONSEQUENCES EXPLAINED, PT DOES NOT WANT TO TAKE ANY MORE MEDICATION, REFUSES PHENERGAN, PT'S MOTHER AT BEDSIDE, PT AND MOTHER BOTH VERBALIZED UNDERSTANDING OF RISKS, PT STATES SHE WILL GO TO [facility] WHERE SHE HAS BEEN SEEN PREVIOUSLY FOR DIALYSIS AND HIP FX. PT CALLED HER TO PICK HER UP, AMA PAPER WORK SIGNED BY PT.
--- NOTE | 2019-05-17 19:35 | NUR ---
IV REMOVED, CATH TIP INTACT, BLEEDING CONTROLLED, PT LEFT IN WHEELCHAIR WITH AND MOTHER.
[2019-05-17] MEDS ORDERED: CALCIUM ACETATE 667 MG TAB PO SCH (21:00)
[2019-05-17] MEDS ORDERED: CINACALCET 30 MG TAB PO SCH (21:00)
[2019-05-18] MEDS ORDERED: VITAMIN B COMPLEX W/C 1 TAB PO SCH (09:00)
[2019-05-18] MEDS ORDERED: CALCITRIOL 0.25 MCG CAPLF PO SCH (09:00)
== END 2019-05-17 19:35 | disposition left against medical advice (07) | DRG 199 ==
LOC: MED 19:30 → MTU 05-16 01:11 → MIC 05-16 02:08
PROVIDERS: ADMIT Hospitalist; ATTEND Hospitalist
PROC: 5A1D70Z Performance of Urinary Filtration, Intermittent, Less than 6 Hours Per Day (ICD-10-PCS; principal; 2019-05-16)
DX: I16.1 Hypertensive emergency (principal); I50.31 Acute diastolic (congestive) heart failure; N18.6 End stage renal disease; N25.0 Renal osteodystrophy; I13.2 Hypertensive heart and chronic kidney disease with heart failure and with stage 5 chronic kidney disease, or end stage renal disease; E21.0 Primary hyperparathyroidism; D64.9 Anemia, unspecified; J45.909 Unspecified asthma, uncomplicated; Z99.2 Dependence on renal dialysis; Z88.0 Allergy status to penicillin; Z88.5 Allergy status to narcotic agent; Z79.899 Other long term (current) drug therapy; Z98.891 History of uterine scar from previous surgery; Z74.01 Bed confinement status; Z83.3 Family history of diabetes mellitus
CPT/HCPCS: 36415; 70450; 71045; 80053; 82550; 82553; 83880; 84443; 84484; 85025; 87081; 93005; 93970; 96374; 96375; 99291; J0360; J0885; J1170; J2060; J2405; J2765; J3010; J3490; J7030; Q0092; Q0162

== ENCOUNTER 2020-04-23 09:16 | Emergency (ER) | payer OTHER, SELFPAY ==
[~2020-04-23] VITALS: Ht 142.2 cm; Wt 62.6 kg
[~2020-04-23 09:16] MED LIST changes: -ACET-9525 PO; +APIX2.5 PO; +APR10 PO; +CALC667C12 PO; +DEXA6TAB1 PO; -IBUP-1842 PO; +NEP PO; -NIFE30TA36 PO; -PHO667 PO; -WARF2.5T77 PO
--- NOTE | 2020-04-23 09:30 | NUR ---
Pt taken to ER bed 4 by BETTIE.
[2020-04-23 09:32] VITALS: BP 126/83
[2020-04-23] MEDS ORDERED: ONDANSETRON 4 MG/2 ML VIAL IVP ONE (09:45)
[2020-04-23] MEDS ORDERED: KETOROLAC 30 MG/ML VIAL IVP ONE (09:45)
--- NOTE | 2020-04-23 09:57 | NUR ---
ultra sound technician at pt bedside.
[2020-04-23] MEDS ORDERED: MORPHINE SULFATE 4 MG/ML SYR IVP ONE ×3 (10:20→13:10)
[2020-04-23 10:31] LABS: BASOPHILS # (AUTO) 0.1 K/uL (0.00-0.22); BASOPHILS % (AUTO) 0.3 % (0.0-2.0); HEMATOCRIT 22.4 % (36-48); HEMOGLOBIN 7.1 g/dL (12.0-16.0); LYMPHOCYTES % (AUTO) 5.2 % (20.5-51.1); MEAN CORPUSCULAR HEMOGLOBIN 30 pg (27-31); MEAN CORPUSCULAR HGB CONC 32 g/dL (33-37); MEAN CORPUSCULAR VOLUME 93.3 fL (80-94); MONOCYTES # (AUTO) 1.5 K/uL (0.8-1.0); MONOCYTES % (AUTO) 7.8 % (1.7-9.3); NEUTROPHILS # (AUTO) 16.3 K/uL (1.8-7.7); NEUTROPHILS % (AUTO) 86.7 % (42.2-75.2); PLATELET COUNT (AUTO) 370 K/uL (140-450); RED CELL DISTRIBUTION WIDTH 14.8 % (11.6-13.7); WHITE BLOOD COUNT (AUTO) 18.8 K/uL (4.8-10.8)
[2020-04-23 10:38] LABS: ALBUMIN 2.5 g/dL (3.4-5.0); ANION GAP 16.2 (8-16); CARBON DIOXIDE 31.3 mmol/L (21-32); CREATININE 3.6 mg/dL (0.6-1.3); TOTAL BILIRUBIN 0.5 mg/dL (0.0-1.0)
[2020-04-23 10:55] LABS: POTASSIUM 5.5 mmol/L (3.5-5.1)
[2020-04-23] MEDS ORDERED: SODIUM ZIRCONIUM CYCLOSILICATE 10 GM POWD.PACK PO ONE (12:10)
[2020-04-23 15:43] VITALS: BP 105/56
== END 2020-04-23 15:00 | disposition home or self-care (01) ==
LOC: MED 09:16
DX: J18.9 Pneumonia, unspecified organism (principal); R11.2 Nausea with vomiting, unspecified; E11.22 Type 2 diabetes mellitus with diabetic chronic kidney disease; I12.9 Hypertensive chronic kidney disease with stage 1 through stage 4 chronic kidney disease, or unspecified chronic kidney disease; N18.9 Chronic kidney disease, unspecified; Z88.0 Allergy status to penicillin; Z79.899 Other long term (current) drug therapy; Z98.890 Other specified postprocedural states
CPT/HCPCS: 36415; 71045; 74176; 80053; 83690; 84703; 85025; 96374; 96375; 96376; 99285; J1885; J2270; J2405

== ENCOUNTER 2020-04-26 17:08 | Inpatient (IN) | payer OTHER, SELFPAY ==
[~2020-04-26] VITALS: Ht 152.4 cm; Wt 32.2 kg
--- NOTE | 2020-04-26 17:08 | NUR ---
Patient BIBA BLS, transferred to bed 6. RN evaluating the patient at bedside.
[2020-04-26 17:09] VITALS: BP 167/94
--- NOTE | 2020-04-26 17:36 | NUR ---
pt is anuric, cannot collect urine sample
--- NOTE | 2020-04-26 17:37 | NUR ---
@1707 received care of 29 y/o female c/o abdominal pain made worse when coughing. Pt has med hx of ESRD ( goes to dialysis [facility]) Htn. Allergic to PCN. Pt changed into a clean hospital gown, hooked to surveillance monitor, awaiting MD assesment.
--- NOTE | 2020-04-26 18:01 | NUR ---
dialysis shunt on left UA. thrill felt and bruit auscultated.
[2020-04-26 18:04] LABS: BASOPHILS # (AUTO) 0.1 K/uL (0.00-0.22); BASOPHILS % (AUTO) 0.9 % (0.0-2.0); EOSINOPHILS # (AUTO) 0.1 K/uL (0-0.4); EOSINOPHILS % (AUTO) 1.5 % (0.0-4.0); HEMATOCRIT 20.8 % (36-48); LYMPHOCYTES % (AUTO) 13.2 % (20.5-51.1); MEAN CORPUSCULAR HEMOGLOBIN 30 pg (27-31); MEAN CORPUSCULAR HGB CONC 32 g/dL (33-37); MEAN CORPUSCULAR VOLUME 94.3 fL (80-94); MONOCYTES # (AUTO) 0.5 K/uL (0.8-1.0); MONOCYTES % (AUTO) 6.3 % (1.7-9.3); NEUTROPHILS % (AUTO) 78.1 % (42.2-75.2); PLATELET COUNT (AUTO) 331 K/uL (140-450); RED BLOOD CELL COUNT(AUTO) 2.21 MIL/uL (4.20-5.40); RED CELL DISTRIBUTION WIDTH 15.2 % (11.6-13.7); WHITE BLOOD COUNT (AUTO) 7.7 K/uL (4.8-10.8)
[2020-04-26 18:05] LABS: HEMOGLOBIN 6.7 g/dL (12.0-16.0)
--- NOTE | 2020-04-26 18:06 | NUR ---
Hemoglobin 6.7, Hematocrit 20.8--critical value received from lab. Dr Somers made aware.
[2020-04-26 18:19] LABS: PROTHROMBIN TIME 9.4 secs (10.8-13.4)
[2020-04-26 18:20] LABS: ALBUMIN 2.5 g/dL (3.4-5.0); ANION GAP 17.7 (8-16); CARBON DIOXIDE 27.5 mmol/L (21-32); POTASSIUM 5.2 mmol/L (3.5-5.1); TOTAL BILIRUBIN 0.5 mg/dL (0.0-1.0)
[2020-04-26 18:26] LABS: CREATININE 5.2 mg/dL (0.6-1.3)
--- NOTE | 2020-04-26 18:26 | NUR ---
BUN 43, creatinine 5.2--critical values received from lab. Dr Somers made aware.
--- NOTE | 2020-04-26 18:29 | NUR ---
med rec , belongings list completed.
[2020-04-26] MEDS ORDERED: MORPHINE SULFATE 2 MG/ML SYR IVP ONE (18:30)
--- NOTE | 2020-04-26 18:30 | NUR ---
consent for blood transfusion signed by pt.
[2020-04-26] MEDS ORDERED: SODIUM ZIRCONIUM CYCLOSILICATE 10 GM POWD.PACK PO ONE (18:40)
--- NOTE | 2020-04-26 19:08 | NUR ---
hand-off report given to Rah ALFARO for continuation of nursing care
--- NOTE | 2020-04-26 19:11 | NUR ---
RECEIVED REPORT FROM BISI ALFARO FOR CONTINUATION OF CARE.
--- NOTE | 2020-04-26 19:20 | NUR ---
RONEY SWAB COLLECTED AND WALKED TO LAB.
--- NOTE | 2020-04-26 19:20 | NUR ---
29 YR OLD FEMALE AOX4 WITH CHIEF COMPLAINT OF SHARP NON-RADIATING LEFT SIDE ABDOMINAL PAIN 10/10. PATIENT STATE NO NAUSEA AND NO OTHER DISCOMFORT. BED IS LOCKED IN LOWEST POSITION WITH 2 SIDE RAILS UP. WILL CONTINUE TO MONITOR.
[2020-04-26] MEDS ORDERED: HYDROmorphone PFS 2 MG/ML SYR IVP ONE (19:25)
--- NOTE | 2020-04-26 19:25 | NUR ---
ED MD AT BEDSIDE FOR MEDICAL EVALUATION.
[2020-04-26] MEDS ORDERED: LEVOFLOXACIN 500 MG/D5W PREMIX 100 ML IV ONE (19:30)
--- NOTE | 2020-04-26 19:58 | NUR ---
LAB CALLED THAT BLOOD SUPPLY IS READY. PER DR RAMIREZ BLOOD SUPPLY TO BE ADMINISTERED DURING DIALYSIS.
--- NOTE | 2020-04-26 20:00 | NUR ---
PATIENT FOUND AWAKE IN SEMI-BUCIO'S ON BED. PATIENT STATES NON-RADIATING 5/10 LEFT SIDE ABDOMINAL PAIN. BED LOCKED IN LOWEST POSITION. WITH 2 SIDE RAILS UP. WILL CONTINUE TO MONITOR.
--- NOTE | 2020-04-26 21:04 | NUR ---
Personal belongings dropped off by family and given to patient.
[2020-04-26] MEDS ORDERED: LEVOFLOXACIN 500 MG/D5W PREMIX 100 ML IV SCH (22:00)
--- NOTE | 2020-04-26 22:25 | NUR ---
SPOKE TO AFTER HOUR PHARMACY [facility] FOR CHANGE OF MEDICATION ORDER. PER PHARMACY, DUE TO KIDNEY FUNCTION, DECREASE LEVAQUIN TO 250MG Q48HR.
[2020-04-26] MEDS: NACL 0.9% 1,000 ML IV SCH (22:47)
[2020-04-26] MEDS: MORPHINE SULFATE 2 MG/ML SYR IVP PRN (22:48)
--- NOTE | 2020-04-26 23:12 | NUR ---
PATIENT FOUND AWAKE ON BED IN SEMI-FOWLERS POSITION ON BED. PATIENT STATES 6/10 LEFT SIDED ABDOMINAL PAIN. PATIENT DENIES OTHER DISCOMFORT. BED LOCKED IN LOWEST POSITION. WILL CONTINUE TO MONITOR.
--- NOTE | 2020-04-26 23:34 | NUR ---
Patient will be admitted to care of DR CORONEL. Admited to MED/SURG. Will go to room 126B. Belongings list completed. Report to JEWELS ALFARO.
--- NOTE | 2020-04-26 23:57 | NUR ---
TRANSFERRED PATIENT TO MED/SURG VIA WHEELCHAIR TO BED 126B. RECEIVING NURSE JEWELS ALFARO AT BEDSIDE.
[2020-04-27] VITALS: BP 133/78
--- NOTE | 2020-04-27 | NUR ---
RECEIVED PT FROM ER / WHEELCHAIR , NID - W/ O2 AT 2LPM/NC - O2 SAT WNL . AMBULATES TO BED W/ 1 PERSON ASSIST . IV SITE INTACT AND PATENT . W/ AV SHUNT ON CELSO - ON HD - T. TH , SAT . FOR BT - W/ CONSENT SIGNED . ADMISSION ASSESSMENT DONE - MRSA SPECIMEN TO BE SENT TO LAB . SAFETY MEASURES IN PLACE - CALL LIGHT WITHIN REACH . PLAN OF CARE DISCUSSED AND VERBALIZE UNDERSTANDING . 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 C/O PAIN - JUST GOT IV PAIN MED AT ER PRIOT TO FLOOR - WILL RE ASSESS THE PAIN . WILL CONT. TO MONITOR .
--- NOTE | 2020-04-27 00:56 | NUR ---
FOR BT - HGB 6.7 - NO SIGNS OF BLEEDING ELSEWHERE , PRBC 1 UNIT ALREADY AVAILABLE - REFER DR. LAGUERRE - IF HE WANT TO DO BT STAT OR WHILE PT. IS ON HEMODIALYSIS . PT IS ANURIC , TOTALLY DEPENDENT TO HD , CXR - SHOWS CARDIOMEGALY AND PULMONARY VASCULAR CONGESTION . - WILL WAIT RESPONSE - CHARGE NURSE INFORMED . Addendum: 04/27/20 at 0121 by Dominique Waldron RN AT 0120 - DR. LAGUERRE RESPONSE TO MY TEXT MSG W/ REGARDS TO BT - PER DR. LAGUERRE TRANSFUSE BLOOD WHILE PT ON DIALYSIS - WILL ENDORSE .
--- NOTE | 2020-04-27 02:40 | NUR ---
C/O ABDL . PAIN - SOFT ABD. SOFT - BP 140/90 , IA 92 , RR 20 , O2 SAT 95 % - WILL MEDICATE FOR PAIN ORDERED
[2020-04-27] MEDS: ONDANSETRON 4 MG/2 ML VIAL IVP PRN (02:53)
[2020-04-27] MEDS: MORPHINE SULFATE 2 MG/ML SYR IVP PRN ×2 (02:53→17:29)
--- NOTE | 2020-04-27 03:45 | NUR ---
ANSWER THE CALL LIGHT - PT'S SAYS " I THINK MY BP IS GOING TO HIGH " AND MY HEART BEATS SO FAST - RE CHECK THE V/S : BP 140/80 , CO 90 , RR 20 , 02 SAT 96 % PT. HAD EKG DONE AT THE ER UPON ADM - SR . WILL HOOK TO DISTRIBUTION ASSOCIATE JUST FOR FURTHER ASSESSMENT . WILL CONT. TO MONITOR.
[2020-04-27 04:00] VITALS: BP 140/90
--- NOTE | 2020-04-27 05:00 | NUR ---
CAUGHT IN THE ACT PT. PUTTING LIDOCAINE CREAM IN HD SITE - I TOLD HER TO STOP IT FOR A WHILE UNTIL THE DR . ADVICE HER TO CONT. TO USE IT . PT HAVE PRN NARCOTIC IV PRESCRIBED BY DR Frank LAGUERRE IN HOSPITAL MED. HERE.- WILL ENDORSE IT
[2020-04-27 06:52] LABS: BASOPHILS # (AUTO) 0.1 K/uL (0.00-0.22); BASOPHILS % (AUTO) 0.9 % (0.0-2.0); EOSINOPHILS # (AUTO) 0.2 K/uL (0-0.4); EOSINOPHILS % (AUTO) 1.4 % (0.0-4.0); HEMATOCRIT 23.9 % (36-48); HEMOGLOBIN 7.4 g/dL (12.0-16.0); LYMPHOCYTES # (AUTO) 0.9 K/uL (2.5-16.5); LYMPHOCYTES % (AUTO) 8.3 % (20.5-51.1); MEAN CORPUSCULAR HEMOGLOBIN 30 pg (27-31); MEAN CORPUSCULAR HGB CONC 31 g/dL (33-37); MEAN CORPUSCULAR VOLUME 96.5 fL (80-94); MONOCYTES # (AUTO) 0.8 K/uL (0.8-1.0); MONOCYTES % (AUTO) 7.2 % (1.7-9.3); NEUTROPHILS # (AUTO) 9.1 K/uL (1.8-7.7); NEUTROPHILS % (AUTO) 82.2 % (42.2-75.2); PLATELET COUNT (AUTO) 329 K/uL (140-450); RED BLOOD CELL COUNT(AUTO) 2.48 MIL/uL (4.20-5.40); RED CELL DISTRIBUTION WIDTH 15.1 % (11.6-13.7)
[2020-04-27] MEDS: HYDROmorphone 1 MG/ML AMP IVP PRN ×2 (07:07→21:32)
--- NOTE | 2020-04-27 07:40 | NUR ---
ENDORSED - PT - STABLE . ENDORSE TO AM NURSE TO FF UP THE ORDER FOR HD TODAY . I TEXTED DR Frank LAGUERRE ABOUT IT .
--- NOTE | 2020-04-27 07:40 | NUR ---
RECEIVED REPORT FROM NIGHT NURSE. PATIENT AWAKE, ALERT, AND ORIENT X4. PATIENT IS ON 2LNC. FLUID RESTRICTION. HEMODIALYSIS SCHEDULE TODAY. BLOOD TRANSFUSION DURING HEMODIALYSIS. PATIENT VERBALIZED MORPHINE PRN IS NOT WORKING, GIVEN DILAUDID @707AM. IV RIGHT FOREARM IS INTACT. LEFT UPPER AV SHUNT HD ACCESS INTACT. SKIN INTEGRITY IS INTACT. SAFETY MEASURES ARE IN PLACE. CALL LIGHT WITHIN REACH. WILL MONITOR NEEDED.
[2020-04-27 08:00] VITALS: BP 158/89
[2020-04-27] MEDS: NACL 0.9% 1,000 ML IV SCH ×2 (08:00→18:00)
[2020-04-27 08:18] LABS: ALBUMIN 2.7 g/dL (3.4-5.0); ANION GAP 19.8 (8-16); MAGNESIUM 2.8 mg/dL (1.8-2.4); POTASSIUM 4.8 mmol/L (3.5-5.1); TOTAL BILIRUBIN 0.6 mg/dL (0.0-1.0)
--- NOTE | 2020-04-27 09:10 | NUR ---
PATIENT HAS BEEN SCREENED AND CATEGORIZED HIGH NUTRITION RISK. PATIENT WILL BE SEEN WITHIN 1-2 DAYS OF ADMISSION. 04/27/20-04/28/[address]
--- NOTE | 2020-04-27 09:18 | NUR ---
RECEIVED ORDER FROM DR. CORONEL TO STOP IVF. Addendum: 04/27/20 at 1002 by Candice Olson RN DR CORONEL ORDERED TO STOP IVF AND WILL CONSULT NEPHRO.
--- NOTE | 2020-04-27 10:26 | NUR ---
SOCIAL WORK NOTE: Patient's Orientation Unable To Assess Information Provided By JERRY SHRESTHA - MOTHER Comments SW WAS UNABLE TO MEET PATIENT AT BEDSIDE TO COMPLETE ASSESSMENT. SW COMPLETED ASSESSMENT WITH PATIENT'S MOTHER USING CONTACT CENTER ENGINEER. Salt Plant Operator, Realtionship and Phone Number JERRY SHRESTHA MOTHER [phone] JERO GARCIA BROTHER [phone] Healthcare Power of Plate Cleaner No Does Patient Have a POLST No Identifying Problems No Social Work Triggers Is A Social Work Consult Needed No Mandate Report Filed No Explanation Of Identifying Problems PATIENT IS A 29-YEAR-OLD FEMALE ADMITTED FOR PNEUMONIA. PATIENT HAS PMHX OF ESRD //SUN, HYPERTENSION, AND RENAL DISEASE. Admitted From Home Pre-Admission Level Of Functioning Status Assist With ADL Level Of Functioning Comment PATIENT RECEIVES ASSISTANCE FROM FAMILY WITH BATHING, COOKING, AND CLEANING. Prior Resources/Services Used In Last 12 Months No Prior Resources Used Prior DME Walker Wheelchair Dialysis Hemodialysis Name And Phone Number of Dialysis Facility [facility] ESRD Outpatient Days Sun ESRD Outpatient Time [address] Lives With Family Patient Had Caregiver No Home Support No Caregiver Issues Financial Issues No Known Financial Issue Referral To The Financial Counselor Needed No Factors/Needs No D/C Needs Identified Pt/Rep Participated In Discharge Plan Yes Patient/Family Agress With Discharge Plan Yes Discharge Plan Comments TENTATIVE DISCHARGE PLAN IS FOR PATIENT TO RETURN HOME. DC Plan Status Initiated
[2020-04-27 11:46] LABS: CREATININE 5.5 mg/dL (0.6-1.3)
[2020-04-27 12:00] VITALS: BP 178/103
--- NOTE | 2020-04-27 12:40 | NUR ---
DISCHARGE PLANNING: THIS IS A 29 Y/O FEMALE PATIENT BIBA FROM HOME, DUE TO ABDOMINAL PAIN, COUGH, SHORTNESS OF BREATH. PAST MEDICAL HISTORY INCLUDE ESRD ON HD TTHS, HTN. ON O2 AT 2LPM/NC, O2 SAT 96%. RAPID COVID TEST NEGATIVE. CURRENT LABS INCLUDE WBC 11.0, H/H 7.4/23.9, NA/K 137/4.8, BUN/CREA 45/5.5, ALB 2.7. ON LEVAQUIN. TENTATIVE DC PLAN BACK TO HOME ONCE STABLE. CONTACTED [facility] AT [phone], ABLE TO SPEAK TO IDA AND HE CONFIRMED THAT THIS IS THEIR PATIENT. CHAIR TIME IS TTHS AT 0800. WILL TAKE THE PATIENT BACK ONCE DC FROM THE HOSPITAL. Addendum: 04/29/20 at 1531 by Jessica Story CM CORNELIUS OF [facility] RECOMMENDED HOME HEALTH FOR HOME SAFETY EVALUATION. SHE STATED SHE WILL DISCUSS IT WITH DR. CORONEL. DR. CORONEL MADE AWARE. I ALSO INFORMED HIM THAT PATIENT DOES NOT HAVE ANY ORDERS FOR LAB. HE STATED OK TO PUT ORDERS IN. ORDERS FOR HOME HEALTH AND CBC, BMP TRANSCRIBED AND CARRIED OUT. DISCUSSED PLAN FOR HOME HEALTH WITH PATIENT AND IN AGREEMENT. SHE STATED SHE DOES NOT HAVE ANY PREFERENCE AND WHOEVER IS CONTRACTED WITH THE INSURANCE. ALL QUESTIONS AND CONCERNS ANSWERED. ORDER AND CLINICALS SENT TO [facility] AND [facility] [place] TREY OF [facility] [place] MADE AWARE. PER TREY, WILL REVIEW REFERRAL. CORNELIUS CURRY [facility] PROVIDED ME WITH AUTH [id number]. Addendum: 04/29/20 at 1600 by Jessica Story CM PER TREY OF [facility] [place] THEY ARE ABLE TO ACCEPT PATIENT. PER DR. CORONEL, WILL EVALUATE PATIENT AND IF STABLE, WILL DC TODAY. MADE HIM AWARE THAT [facility] [place] IS ABLE TO ACCEPT. CHARGE NURSE CASTRO MADE AWARE WELL. Addendum: 04/29/20 at 1602 by Jessica Story CM [facility] [phone] FAX - [phone] Addendum: 04/30/20 at 0838 by Jessica Story CM UPDATED CLINICALS FAXED TO [facility]. KELSIE OF [facility] [place] MADE AWARE THAT PATIENT DC'D. SHE CONFIRMED THAT THEY RECEIVED UPDATED CLINICALS.
--- NOTE | 2020-04-27 13:00 | NUR ---
PATIENT STARTED ON HEMODIALYSIS BP 160/80 ND 85 RR 25 T 97.9 OXYGEN SATURATION 100%.
--- NOTE | 2020-04-27 14:00 | NUR ---
BLOOD TRANSFUSION OF PRBC GIVEN AND STARTED DURING DIALYSIS. GIVEN BY DIALYSIS NURSE VERIFIED BY 2 NURSES.
--- NOTE | 2020-04-27 14:30 | NUR ---
BLOOD TRANSFUSION COMPLETED AND PT IS STABLE VITAL SIGNS CHECK
[2020-04-27 16:00] VITALS: BP 162/100
--- NOTE | 2020-04-27 16:00 | NUR ---
HEMODIALYSIS FINISHED AT 1600. DIALYSIS NURSE NOTED WITH 3000ML OUTPUT. BP 162/100 TX 100.
[2020-04-27] MEDS ORDERED: hydrALAZINE 25 MG TAB PO PRN (17:45)
--- NOTE | 2020-04-27 17:53 | NUR ---
MEDICATIONS DUE GIVEN FOR BLOOD PRESSURE MEDICATION ORDERED BY DR. CORONEL. BP 163/87 NE 74.
--- NOTE | 2020-04-27 18:07 | NUR ---
NACL 0.9% HAS BEEN DISCONTINUED BY DR. CORONEL DUE TO PATIENT IS ON HEMODIALYSIS.
--- NOTE | 2020-04-27 19:40 | NUR ---
GAVE ENDORSEMENT TO BRICK PICKER NURSE. PATIENT IS IN STABLE CONDITION.
[2020-04-27 20:00] VITALS: BP 130/74
[2020-04-27] MEDS: DOCUSATE SODIUM 250 MG GELCAP PO SCH (21:31)
[2020-04-28] MEDS: NACL 0.9% 1,000 ML IV SCH ×2 (01:51→12:15)
[2020-04-28] MEDS: MORPHINE SULFATE 2 MG/ML SYR IVP PRN ×5 (01:58→21:40)
[2020-04-28 04:00] VITALS: BP 174/96
[2020-04-28 06:38] LABS: ANION GAP 14.7 (8-16); CARBON DIOXIDE 27.7 mmol/L (21-32); POTASSIUM 4.4 mmol/L (3.5-5.1)
--- NOTE | 2020-04-28 07:35 | NUR ---
RECEIVED PT FROM WALL STEAMER NURSE, PT IS AWAKE IN BED, ON 2L NC, IV NOTED TO RFA RUNNING NS AT 100 ML/HR, CELSO SHUNT NOTED, SAFETY AND FALL PRECAUTIONS IN PLACE, WILL CONTINUE TO MONITOR.
[2020-04-28 08:00] VITALS: BP 165/87
[2020-04-28] MEDS: CINACALCET 30 MG TAB PO SCH (08:22)
[2020-04-28] MEDS: DOCUSATE SODIUM 250 MG GELCAP PO SCH ×2 (08:23→21:40)
--- NOTE | 2020-04-28 08:33 | NUR ---
SCHEDULED MEDICATIONS ADMINISTERED , BP 166/90, HR 80, RR 20, O2 92, COMPLAINT OF PAIN IN HEAD AND BACK, MORPHINE GIVEN, WILL CONTINUE TO MONITOR.
--- NOTE | 2020-04-28 12:44 | NUR ---
PAIN MEDICATION PROVIDED FOR PAIN 01/16 LUQ, MORPHINE, BP 162/86, 02 95%, RR 20, MD NOTIFIED OF ELEVATED BP, WILL CONTINUE TO MONITOR.
[2020-04-28] MEDS ORDERED: hydrALAZINE 25 MG TAB PO PRN ×2 (13:35→14:00)
[2020-04-28] MEDS: HYDROmorphone 1 MG/ML AMP IVP PRN ×2 (13:56→18:18)
[2020-04-28] MEDS: ONDANSETRON 4 MG/2 ML VIAL IVP PRN ×3 (13:56→21:58)
--- NOTE | 2020-04-28 14:13 | NUR ---
DILAUDID AND ZOFRAN ADMINISTERED, PT STATES PAIN TO LUQ 10/10 AND STATES SHE FEELS NAUSEA, BP 148/79, HR 88, RR 22, O2 96, WILL CONTINUE TO MONITOR,
--- NOTE | 2020-04-28 14:42 | NUR ---
04/28/20 RD INITIAL ASSESSMENT COMPLETED PLEASE REFER TO NUTRITION ASSESSMENT UNDER CARE ACTIVITY FOR ESTIMATED NUTRITIONAL NEEDS. 1. CONTINUE RENAL DIET TOLERATED 2. IF PO INTAKE <75% CONSIDER NEPHRO BID 3. RD TO FOLLOW-UP 3-5 DAYS, MODERATE RISK RASHAD JEAN, RD
[2020-04-28 16:00] VITALS: BP 129/71
--- NOTE | 2020-04-28 16:42 | NUR ---
PAIN MEDICATION ADMINISTERED FOR PAIN 01/16 LOCATED TO THE LUQ, BP 129/71, HR 72, RR 21 O2 98%, EDUCATION PROVIDED, PT VERBALIZED UNDERSTANDING, WILL CONTINUE TO MONITOR.
--- NOTE | 2020-04-28 17:39 | NUR ---
SCHEDULED ANTIBIOTIC ADMINISTERED, PT EDUCATION PROVIDED, PT VERBALIZED UNDERSTANDING, PT STATES SLIGHT IMPROVEMENT IN PAIN, 8 OUT OF 10, WILL CONTINUE TO MONITOR.
[2020-04-28] MEDS ORDERED: LEVOFLOXACIN 250 MG/D5 PREMIX 50 ML IV SCH (18:00)
--- NOTE | 2020-04-28 19:20 | NUR ---
ENDORSED PT TO BUILDING MAINTENANCE SUPERVISOR NURSE FOR CONTINUITY OF CARE.
--- NOTE | 2020-04-28 19:30 | NUR ---
RECEIVED BEDSIDE REPORT FROM DAY SHIFT NURSE FOR CONTINUITY OF CARE. PT IS AWAKE AND ALERT, A&OX4. ON 2L O2 NC WITH BREATHING UNLABORED. PT IS ANURIC. ON DIALYSIS T,TH,SAT. SCHEDULED FOR TOMORROW. SKIN IS WARM, DRY, AND INTACT. AV SHUNT IN THE LEFT UA. IV IS IN THE RIGHT FOREARM 20 GAUGE RUNNING NS AT 20 ML PER HOUR PER ORDER. PT IS STABLE. STATES SHE HAS SOME NAUSEA. WILL CONTINUE TO MONITOR NAUSEA/ PAIN. PLAN OF CARE DISCUSSED.
[2020-04-28 20:00] VITALS: BP 147/82
--- NOTE | 2020-04-28 21:40 | NUR ---
PT STATES SHE HAS PAIN AT A SCALE OF 8/10. PAIN IS IN THE ABDOMEN AND IS STABBING. PT WAS GIVEN MORPHINE ORDERED. BP WAS 147/82 PRIOR TO ADMINISTRATION. WILL MONITOR PAIN.
--- NOTE | 2020-04-28 21:58 | NUR ---
PT HAD AN EPISODE OF EMESIS AND WAS GIVEN ZOFRAN ORDERED FOR NAUSEA. THE EMESIS IS SMALL IN AMOUNT AND CLEAR LIQUID. WILL MONITOR NAUSEA.
--- NOTE | 2020-04-28 23:39 | NUR ---
ROUNDED ON PT. SHE IS SLEEPING IN SEMI FOWLERS POSITION. NO PAIN NOTED. IV FLUIDS ARE INFUSING. PT IS STABLE.
--- NOTE | 2020-04-29 01:33 | NUR ---
PT IS ASLEEP. CHEST RISE AND FALL IS SYMMETRICAL. NO RESPIRATORY DISTRESS OR PAIN. NO SOB. BELONGINGS ARE AT THE BEDSIDE WITHIN REACH. CALL LIGHT IS WITHIN REACH.
[2020-04-29] MEDS: HYDROmorphone 1 MG/ML AMP IVP PRN (02:50)
[2020-04-29] MEDS: ONDANSETRON 4 MG/2 ML VIAL IVP PRN (02:50)
--- NOTE | 2020-04-29 02:50 | NUR ---
PAIN IS STATED AT A SCALE OF 9/10. BP WAS TAKEN AND IT WAS 145/87. PT WAS GIVEN DILAUDID FOR PAIN. PT WAS ALSO GIVEN NAUSEA SHE HAD AN EPISODE OF EMESIS. SMALL IN AMOUNT AND CLEAR IN COLOR. WILL MONITOR.
[2020-04-29 04:00] VITALS: BP 158/68
--- NOTE | 2020-04-29 05:00 | NUR ---
ROUNDED ON PT. SHE IS ASLEEP, NO DISTRESS NOTED. BREATHING IS UNLABORED. PT IS STABLE AT THIS TIME. BED IS IN THE LOWEST POSITION AND BEDSIDE TABLE IN REACH. WILL CONTINUE TO MONITOR PT FOR PAIN OR DISTRESS.
--- NOTE | 2020-04-29 07:10 | NUR ---
ENDORSED PT TO DAY SHIFT NURSE FOR CONTINUITY OF CARE. PT IS STABLE AT THIS TIME. PLAN OF CARE DISCUSSED.
--- NOTE | 2020-04-29 08:41 | NUR ---
PATIENT IN BED RESTING COMFORTABLY, PRESENTS CALM AND COOPERATIVE, ABLE TO EXPRESS NEEDS. RESPIRATIONS ARE NON-LABORED. SKIN IS CLEAN, WARM AND DRY TO TOUCH. IV ACCESS IS PATENT, DRY AND INTACT. BED IS LOCKED IN LOWEST POSITION, CALL LIGHT IN REACH. NURSE WILL CONTINUE TO MONITOR FOR CHANGES IN STATUS.
[2020-04-29] MEDS: DOCUSATE SODIUM 250 MG GELCAP PO SCH ×2 (09:00→19:39)
[2020-04-29] MEDS ORDERED: EPOETIN ALFA 10,000 UNITS/ML VIAL SUBQ SCH (09:00)
[2020-04-29] MEDS ORDERED: VIT-B COMP/VIT-C/FOLIC ACID 1 TAB PO SCH (09:00)
[2020-04-29] MEDS: CINACALCET 30 MG TAB PO SCH (09:00)
--- NOTE | 2020-04-29 11:28 | NUR ---
PATIENT IN BED WATCHING TELEVISION, NO C/O PAIN OR DISCOMFORT. RESPIRATIONS ARE NON-LABORED. SKIN IS CLEAN, WARM AND DRY TO TOUCH. IV ACCESS IS PATENT, DRY AND INTACT. TOLERATED MEDICATION WELL, NO S/SX OF ADVERSE EFFECTS. AM CARE ADMINISTERED. BED IS LOCKED IN LOWEST POSITION, CALL LIGHT IN REACH. NURSE WILL CONTINUE TO MONITOR FOR CHANGES IN STATUS.
[2020-04-29] MEDS: NACL 0.9% 1,000 ML IV SCH (13:15)
--- NOTE | 2020-04-29 15:32 | NUR ---
PATIENT IN BED WATCHING TELEVISION, NO C/O PAIN OR DISCOMFORT. RESPIRATIONS ARE NON-LABORED. SKIN IS CLEAN, WARM AND DRY TO TOUCH. IV ACCESS IS PATENT, DRY AND INTACT. BED IS LOCKED IN LOWEST POSITION, CALL LIGHT IN REACH. NURSE WILL CONTINUE TO MONITOR FOR CHANGES IN STATUS.
[2020-04-29 15:45] LABS: BASOPHILS % (AUTO) 0.5 % (0.0-2.0); EOSINOPHILS # (AUTO) 0.1 K/uL (0-0.4); EOSINOPHILS % (AUTO) 1.7 % (0.0-4.0); HEMATOCRIT 26.5 % (36-48); HEMOGLOBIN 8.4 g/dL (12.0-16.0); LYMPHOCYTES # (AUTO) 1.3 K/uL (2.5-16.5); MEAN CORPUSCULAR HEMOGLOBIN 30 pg (27-31); MEAN CORPUSCULAR HGB CONC 32 g/dL (33-37); MEAN CORPUSCULAR VOLUME 95.5 fL (80-94); MONOCYTES # (AUTO) 0.8 K/uL (0.8-1.0); MONOCYTES % (AUTO) 9.1 % (1.7-9.3); NEUTROPHILS # (AUTO) 6.5 K/uL (1.8-7.7); NEUTROPHILS % (AUTO) 73.7 % (42.2-75.2); PLATELET COUNT (AUTO) 359 K/uL (140-450); RED BLOOD CELL COUNT(AUTO) 2.77 MIL/uL (4.20-5.40); RED CELL DISTRIBUTION WIDTH 15.4 % (11.6-13.7); WHITE BLOOD COUNT (AUTO) 8.8 K/uL (4.8-10.8)
[2020-04-29 16:18] LABS: ANION GAP 11.9 (8-16); CREATININE 2.4 mg/dL (0.6-1.3)
[2020-04-29 17:11] LABS: POTASSIUM 2.9 mmol/L (3.5-5.1)
--- NOTE | 2020-04-29 17:52 | NUR ---
NOTIFIED DR. CORONEL, REGARDING RECENT K= 2.9. AWAITING FOLLOW UP ORDERS.
[2020-04-29] MEDS ORDERED: POTASSIUM CHLORIDE 10 MEQ TABER PO SCH ×2 (18:00→19:00)
--- NOTE | 2020-04-29 18:34 | NUR ---
PATIENT ENDORSED TO INSPECTOR FINAL ASSEMBLY MECHANICAL NURSE. NO C/O PAIN OR DISCOMFORT, RESPIRATIONS NON-LABORED ON ROOM AIR. SKIN IS CLEAN, WARM AND DRY TO TOUCH. IV ACCESS IS PATENT/DRY/INTACT. BED LOCKED IN LOWEST POSITION, CALL LIGHT IN REACH.
--- NOTE | 2020-04-29 19:30 | NUR ---
RECEIVED BEDSIDE REPORT FROM DAY SHIFT NURSE FOR CONTINUITY OF CARE. PT IS AAOX4. ON 2L O2 NC WITH BREATHING UNLABORED. PT IS ANURIC. ON DIALYSIS T,TH,SAT LAST HD TODAY. SKIN IS WARM, DRY, AND INTACT. AV SHUNT IN THE LEFT UA. IV IS IN THE RIGHT FOREARM 20 GAUGE INFUSING NS AT 20 ML PER HOUR PER ORDER. PT WITH ABD PAIN PENDING RESULTS OF GALLBLADDER IF NEGATIVE PER MD OK TO D/C TONIGHT. POC DISCUSSED WITH PT. PT VERBALIZED UNDERSTANDING. WILL CONTINUE TO MONITOR NAUSEA/ PAIN. PLAN OF CARE DISCUSSED.
[2020-04-29] MEDS: MORPHINE SULFATE 2 MG/ML SYR IVP PRN (19:37)
--- NOTE | 2020-04-29 19:37 | NUR ---
PRN MORPHINE GIVEN FOR ABD PAIN. PT TOLERATED WELL. ALL NEEDS MET. CALL LIGHT IS WITHIN REACH.
[2020-04-29 20:00] VITALS: BP 159/68
[2020-04-29] MEDS ORDERED: LEVO250T71 PO (21:42)
--- NOTE | 2020-04-29 22:30 | NUR ---
US GALLBLADDER RESULTS TO MD CORONEL PER MD ROOT TO D/C DISCHARGE PACKET GIVEN TO PT. D/C PAPER WORK SIGN BY PT. NEW PRESCRIPTION FOR LEVAQUIN 250MG PO DAILY X 3 DAYS SENT TO PHARMACY. IV REMOVED CATH INTACT. VSS. PER PT WILL CUPOLA LINER HELPER AT APPROX 15MIN. ALL NEEDS MET.
--- NOTE | 2020-04-29 22:50 | NUR ---
PATIENT WAS WHEELED OUT BY LADIES LOCKER ROOM ATTENDANT, ALL BELONGINGS WITH PT. D/C PAPERS WITH PT. ARM BAND REMOVED. PT LEFT WITH HOME O2 AT 2L. PT LEFT IN STABLE CONDITION.
== END 2020-04-29 22:50 | disposition home health service (06) | DRG 139 ==
LOC: MED 17:08 → MTU 22:07 → MMU 23:27
PROVIDERS: ADMIT Hospitalist; ATTEND Hospitalist
PROC: 30233N1 Transfusion of Nonautologous Red Blood Cells into Peripheral Vein, Percutaneous Approach (ICD-10-PCS; principal; 2020-04-27)
PROC: 5A1D70Z Performance of Urinary Filtration, Intermittent, Less than 6 Hours Per Day (ICD-10-PCS; 2020-04-27)
PROC: 5A1D70Z Performance of Urinary Filtration, Intermittent, Less than 6 Hours Per Day (ICD-10-PCS; 2020-04-28)
DX: J18.9 Pneumonia, unspecified organism (principal); I50.9 Heart failure, unspecified; I13.2 Hypertensive heart and chronic kidney disease with heart failure and with stage 5 chronic kidney disease, or end stage renal disease; N25.0 Renal osteodystrophy; E87.5 Hyperkalemia; E46 Unspecified protein-calorie malnutrition; N18.6 End stage renal disease; Z99.2 Dependence on renal dialysis; D64.9 Anemia, unspecified; Z88.0 Allergy status to penicillin; Z86.16 Personal history of COVID-19; E20.9 Hypoparathyroidism, unspecified; Z98.891 History of uterine scar from previous surgery; Z87.01 Personal history of pneumonia (recurrent); Z74.01 Bed confinement status; J45.909 Unspecified asthma, uncomplicated; E21.0 Primary hyperparathyroidism; Z68.1 Body mass index [BMI] 19.9 or less, adult; E21.3 Hyperparathyroidism, unspecified
CPT/HCPCS: 36415; 36430; 71045; 74018; 76705; 80048; 80053; 83605; 83735; 83880; 84100; 84484; 84703; 85025; 85610; 85730; 86886; 86900; 86901; 86920; 87040; 87081; 93005; 96365; 96375; 99291; J0885; J1170; J1956; J2270; J2405; J7030; P9016

== ENCOUNTER 2021-01-04 16:15 | Emergency (ER) | payer OTHER, SELFPAY ==
[~2021-01-04] VITALS: Ht 147.3 cm; Wt 52.2 kg
[~2021-01-04 16:15] MED LIST changes: -APR10 PO; +LEVO250T71 PO
[2021-01-04 16:41] VITALS: BP 150/91
[2021-01-04] MEDS ORDERED: ALBUTEROL SULFATE/IPRATROPIU 3 ML SOL IH ONE (16:45)
--- NOTE | 2021-01-04 16:54 | NUR ---
30/F BIBA WITH C/O SOB. EMS STATES PT GOT HER FIRST PFIZER COVID VACCINE YESTERDAY, STATING SHE HAS FELT INCREASINGLY SOB WITH INTERMITTENT FEVER AND CHILLS SINCE YESTERDAY. PATIENT REPORTS ONE EPISODE OF VOMITING THIS MORNING. PATIENT RECEIVED DIALYSIS TODAY, LEFT ARM SHUNT. STATES SHE NORMALLY SLEEPS WITH 2L OXYGEN VIA NC SINCE HAVING COVID LAST YEAR, BUT STATES TODAY SHE HAS NEEDED OXYGEN ALL DAY, NOT AT BASELINE. REPORTS TAKING TYLENOL FOR FEVER, TEMP ON ARRIVAL 102.9. PT ALSO C/O 5/10 THROBBING HEADACHE, DENIES CP.
--- NOTE | 2021-01-04 16:55 | NUR ---
20G IV ESTABLISHED TO RIGHT AC. LABS DRAWN AND HANDED TO Franchisee Gladiator.
[2021-01-04 16:57] LABS: BASOPHILS % (AUTO) 0.6 % (0.0-2.0); EOSINOPHILS % (AUTO) 0.6 % (0.0-4.0); HEMATOCRIT 32.9 % (36-48); HEMOGLOBIN 10.9 g/dL (12.0-16.0); LYMPHOCYTES # (AUTO) 0.3 K/uL (2.5-16.5); LYMPHOCYTES % (AUTO) 7.1 % (20.5-51.1); MEAN CORPUSCULAR HEMOGLOBIN 33 pg (27-31); MEAN CORPUSCULAR HGB CONC 33 g/dL (33-37); MEAN CORPUSCULAR VOLUME 98.7 fL (80-94); MONOCYTES # (AUTO) 0.3 K/uL (0.8-1.0); MONOCYTES % (AUTO) 6.2 % (1.7-9.3); NEUTROPHILS # (AUTO) 3.9 K/uL (1.8-7.7); NEUTROPHILS % (AUTO) 85.5 % (42.2-75.2); PLATELET COUNT (AUTO) 190 K/uL (140-450); RED BLOOD CELL COUNT(AUTO) 3.33 MIL/uL (4.20-5.40); RED CELL DISTRIBUTION WIDTH 15.2 % (11.6-13.7); WHITE BLOOD COUNT (AUTO) 4.6 K/uL (4.8-10.8)
[2021-01-04] MEDS ORDERED: ACETAMINOPHEN EXTRA STRENGTH 500 MG TAB PO ONE (17:00)
[2021-01-04 17:23] LABS: ALBUMIN 3.7 g/dL (3.4-5.0); ANION GAP 14.8 (8-16); CARBON DIOXIDE 27.5 mmol/L (21-32); CREATININE 3.6 mg/dL (0.6-1.3); POTASSIUM 4.3 mmol/L (3.5-5.1); TOTAL BILIRUBIN 0.4 mg/dL (0.0-1.0)
[2021-01-04 17:37] LABS: PROTHROMBIN TIME 10.4 secs (10.8-13.4)
[2021-01-04] MEDS ORDERED: METOCLOPRAMIDE 10 MG/2 ML INJ VIAL IVP ONE (18:15)
--- NOTE | 2021-01-04 18:25 | NUR ---
RONEY SWAB COLLECTED AND HANDED TO ORE BRIDGE OPERATOR
--- NOTE | 2021-01-04 18:55 | NUR ---
PATIENT TAKEN TO CT VIA FROYLAN
--- NOTE | 2021-01-04 19:05 | NUR ---
PATIENT RETURNED FROM CT
--- NOTE | 2021-01-04 19:16 | NUR ---
Pt report given to DEANDRA ALFARO. Transfer of care at this time.
[2021-01-04] MEDS ORDERED: LEVO250T71 PO (19:52)
[2021-01-04 19:58] VITALS: BP 158/86
--- NOTE | 2021-01-04 19:58 | NUR ---
Patient does not wish to proceed with medical care recommended by DR. VIGIL. Patient given information related to possible complications, up to and including , which could occur as a result of leaving hospital at this time. Patient verbalizes understanding of risks involved leaving against medical advice. Patient has signed AMA form.
== END 2021-01-04 19:58 | disposition left against medical advice (07) ==
LOC: MED 16:15
DX: J18.9 Pneumonia, unspecified organism (principal); J96.11 Chronic respiratory failure with hypoxia; I10 Essential (primary) hypertension; Z88.0 Allergy status to penicillin; Z87.448 Personal history of other diseases of urinary system; Z20.822 Contact with and (suspected) exposure to COVID-19
CPT/HCPCS: 36415; 36600; 71045; 71275; 80053; 82803; 83605; 83880; 84484; 85025; 85610; 85730; 87040; 87426; 93005; 94640; 96374; 99285; J2765; Q0092; Q9967